=== PATIENT | female | born 1985 | race Caucasian/White ===

== ENCOUNTER 2016-11-01 17:25 | Emergency (ER) ==
[2016-11-01 17:25] VITALS: BMI 24.9
[2016-11-01 17:32] VITALS: BP 138/87; TEMP 96.7
--- NOTE | 2016-11-01 18:02 | ED.PDOC ---
General ED Provider: Dr. VIRAL LARRY-ER Chief Complaint: Wrist Pain/Injury Stated Complaint: my wrist hurts--it hurts to move my thumb Time Seen by Physician: 17:30 Mode of Arrival: Walk-In Information Source: Patient, Family Exam Limitations: No limitations Primary Care Provider: ZORAN STEELE Nursing and Triage Documentation Reviewed and Agree: Yes Musculoskeletal Complaint Exam - Hand/Wrist Complaint/Exam Location of Pain: Reports: Left, Digit #1 Mechanism of Injury: Reports: No known trauma Onset/Duration: 24hrs Symptoms Are: Still present Onset of Pain: Reports: Immediate Initial Severity: Mild Current Severity: Mild Location: Reports: Discrete (base of the left thumb) Character: Reports: Dull, Aching Aggravating: Reports: Movement Associated Signs and Symptoms: Reports: Swelling. Denies: Redness, Bruising, Fever, Weakness, Numbness, Tingling Dominant Hand: Right Hand/Wrist Findings: Present: Swelling Tenderness: Present: Snuff box, Metacarpal Compartment Syndrome Risk Factors: Present: Pain Differential Diagnoses: Tenosynovitis Review of Systems - Review Of Systems Constitutional: Reports: No symptoms Eyes: Reports: No symptoms Ears, Nose, Mouth, Throat: Reports: No symptoms Respiratory: Reports: No symptoms Cardiac: Reports: No symptoms GI: Reports: No symptoms : Reports: No symptoms Musculoskeletal: Reports: Muscle pain Skin: Reports: No symptoms Neurological: Reports: No symptoms Endocrine: Reports: No symptoms Hematologic/Lymphatic: Reports: No symptoms All Other Systems: Reviewed and Negative Past Medical History - Past Medical History Previously Healthy: No Endocrine: Reports: DM 1 Cardiovascular: Reports: None Respiratory: Reports: None Hematological: Reports: None Gastrointestinal: Reports: None Genitourinary: Reports: None Neuro/Psych: Reports: Migraine, Depression Musculoskeletal: Reports: None Cancer: Reports: None Last Menstrual Period: 10/15/2016 Other Pertinent Past Medical History: LOW VIT DLEFT KNEE SURGERY, C SECTION X2, LEFT OVARY, T AND A, APPY, PE TUB - Surgical History General Surgical History: Reports: Tubal ligation, (LT OVARY REMOVED) , Appendectomy, Cholecystectomy, Tonsillectomy, Orthopedic (LEFT KNEE SURGERY), Other (EAR TUBES-ORAL SURG). Denies: Hysterectomy (LT OVARY REMOVED) - Family History Family History: Reports: None - Social History Smoking Status: Current every day smoker Hx Substance Use: No Alcohol Screening: None Lives: With family - Immunizations Tetanus Shot up to Date: Yes Physical Exam - Physical Exam Appearance: Well-appearing, No pain distress, Well-nourished Pain Distress: Mild Eyes: LEVI, EOMI, Conjunctiva clear ENT: Ears normal, Nose normal, Oropharynx normal Neck: Supple Respiratory: Airway patent, Breath sounds clear, Breath sounds equal, Respirations nonlabored Cardiovascular: RRR, Pulses normal, No rub, No murmur GI/: Soft Musculoskeletal: Limited ROM Skin: Warm, Dry, Normal color Neurological: Sensation intact, Motor intact, Reflexes intact, Cranial nerves intact, Alert, Oriented Psychiatric: Affect appropriate, Mood appropriate Interpretation - Radiology Interpretation Radiology Interpretation By: ED Physician Radiology Results: Negative Critical Care Note - Critical Care Note Total Time (mins): 0 Course - Course Orders, Labs, Meds: Orders Category Date Time Status WRIST, LEFT 3 VIEWS Stat RADS 11/01/16 17:40 Taken Vital Signs: Temp Pulse Resp BP Pulse Ox 11/01/16 17:25 96.7 F L 98 H 20 138/87 96 Departure - Departure Time of Disposition: 18:02 Disposition: HOME SELF-CARE Discharge Problem: Radial styloid tenosynovitis Instructions: Tendinitis (ED) Condition: Good Pt referred to PMD for follow-up: Yes Additional Instructions: heat alt ice--cataflam 50mg tid prn #21---f/u wtih dr steele Allergies/Adverse Reactions: Allergies Sulfa (Sulfonamide Antibiotics) Allergy (Intermediate, Verified 11/01/16 17:34) Hives latex Adverse Reaction (Intermediate, Verified 11/01/16 17:34) Rash Home Medications: Ambulatory Orders Subcutaneous Insulin Pump [Insulin Pump] 1 each MC DIRECTED 06/27/13 Norgestimate-Ethinyl Estradiol [Mononessa 28 Tablet] 1 each PO DAILY 05/24/15 Sumatriptan Succinate [Imitrex] 100 mg PO BID PRN 01/12/16 Tizanidine HCl [Zanaflex] 4 mg PO BID 01/12/16 Buspirone HCl 10 mg PO TID 08/07/16 Hydrocodone Bit/Acetaminophen [Roosevelt 7.5-325] 1 tab PO BID PRN 08/07/16 Citalopram Hydrobromide [Celexa] 10 mg PO BEDTIME #30 08/27/16 Clonazepam [Klonopin] 0.5 mg PO TID #90 08/27/16 Dextroamphetamine/Amphetamine [Adderall 10 mg Tablet] 10 mg PO DAILY LAB Amlodipine Besylate [Norvasc] 2.5 mg PO DAILY 10/16/16 Disposition Discussed With: Patient, Family
--- NOTE | 2016-11-02 06:17 | DI ---
EXAM: Left wrist three-view HISTORY: Pain COMPARISON: None FINDINGS: The bones are normal. The joints are normal. No focal soft tissue abnormality. IMPERSSION: Normal examination.
== END 2016-11-01 18:13 | disposition home or self-care (01) ==
LOC: ED 17:25
DX: M65.4 Radial styloid tenosynovitis [de Quervain] (principal); F17.210 Nicotine dependence, cigarettes, uncomplicated
CPT/HCPCS: 99283

== ENCOUNTER 2016-11-19 19:13 | Emergency (ER) ==
[2016-11-19 19:21] VITALS: BP 114/78; TEMP 98.1; BMI 24.0
[2016-11-19] MEDS ORDERED: DEMEROL 25 MG/ML SYRINGE IM STA (19:31)
[2016-11-19] MEDS ORDERED: ZOFRAN 4 MG/2 ML IM STA (19:31)
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
[2016-11-19 19:47] LABS: URINE PREGNANCY INTERNAL QC INTERNAL QC VALID
--- NOTE | 2016-11-19 20:28 | CT ---
EXAM: CT chest without contrast HISTORY: Left rib pain COMPARISON: CT chest 04/12/2016 TECHNIQUE: Serial axial images of the chest were obtained from the lung apices to the upper abdomen without contrast. These were viewed in multiple planes. 3-D reconstructions of the ribs were provi ded. FINDINGS: The thyroid is normal. The visualized vessels are unremarkable without aneurysm or steno sis. The heart is normal in size without pericardial effusion. There is a pretracheal node measuri ng 1 cm in diameter on image 15. There is no pneumothorax or pleural effusion. There is no consolidation or mass. There is a lingul ar pulmonary nodule measuring 1.1 x 0.7 cm this is unchanged from prior. No new consolidation or ma ss is present. The airways are patent. There are healing right sixth and seventh rib fractures. No acute displaced rib fracture is identif ied. The thoracic spine is unremarkable. The soft tissues in the upper abdomen demonstrate bilater al nephrolithiasis and prior cholecystectomy. IMPRESSION: 1. The healing right sixth and seventh rib fractures. 2. Unchanged lingular pulmonary nodule. Follow-up CT and 3-6 months is recommended. 3. Nonobstructing nephrolithiasis.
== END 2016-11-19 20:51 | disposition home or self-care (01) ==
LOC: ED 19:13
DX: S20.212A Contusion of left front wall of thorax, initial encounter (principal); W51.XXXA Accidental striking against or bumped into by another person, initial encounter; F17.210 Nicotine dependence, cigarettes, uncomplicated
CPT/HCPCS: 81025; 96372; 99283

== ENCOUNTER 2016-12-22 16:55 | Emergency (ER) ==
[2016-12-22 16:55] VITALS: BMI 24.0
[2016-12-22 17:01] VITALS: BP 121/84; TEMP 98.6
--- NOTE | 2016-12-22 17:21 | ED.PDOC ---
General ED Provider: Dr. SHREYAS SAMANIEGO JR Chief Complaint: Wrist Pain/Injury Stated Complaint: Fell over baby gate left wrist pain, moves fingers.pain with lifting with left hand.[End]98.6 122 20 93 121/84 06/10 Time Seen by Physician: 17:20 Mode of Arrival: Walk-In Information Source: Patient Exam Limitations: No limitations Primary Care Provider: ZORAN PLASCENCIA Nursing and Triage Documentation Reviewed and Agree: No Review of Systems - Review Of Systems Constitutional: Reports: No symptoms Eyes: Reports: No symptoms Ears, Nose, Mouth, Throat: Reports: No symptoms Respiratory: Reports: No symptoms Cardiac: Reports: No symptoms GI: Reports: No symptoms : Reports: No symptoms Musculoskeletal: Reports: Joint pain (WRIST PAIN AND TENDERNESS DIFFUSE POSSIBLY POINT TENDER NESS OVER 1ST 5TH MCS) Skin: Reports: No symptoms Neurological: Reports: No symptoms Endocrine: Reports: No symptoms Hematologic/Lymphatic: Reports: No symptoms All Other Systems: Other Past Medical History - Past Medical History Previously Healthy: No Endocrine: Reports: DM 1 Cardiovascular: Reports: None Respiratory: Reports: None Hematological: Reports: None Gastrointestinal: Reports: None Genitourinary: Reports: None Neuro/Psych: Reports: Migraine, Anxiety, Depression Musculoskeletal: Reports: None Cancer: Reports: None Last Menstrual Period: 3 weeks Other Pertinent Past Medical History: LOW VIT D - Surgical History General Surgical History: Reports: Tubal ligation, (LT OVARY REMOVED) , Appendectomy, Cholecystectomy, Tonsillectomy, Adenoidectomy, Orthopedic (LEFT KNEE SURGERY), Other (EAR TUBES-ORAL SURG-LEFT BREAST TUMOR REMOVED). Denies: Hysterectomy (LT OVARY REMOVED) - Family History Family History: Reports: None - Social History Smoking Status: Current every day smoker, Heavy tobacco smoker Hx Substance Use: No Alcohol Screening: None Physical Exam - Physical Exam Appearance: Well-appearing, Thin Pain Distress: Moderate Neck: Supple Respiratory: Airway patent Musculoskeletal: Normal strength, ROM intact, No edema, No calf tenderness ( TENDER LEFT WRIST NOTED) Skin: Warm, Dry, Normal color Neurological: Sensation intact, Motor intact, Reflexes intact, Cranial nerves intact, Alert, Oriented Psychiatric: Affect appropriate, Mood appropriate Critical Care Note - Critical Care Note Total Time (mins): 0 Course - Course Orders, Labs, Meds: Orders Category Date Time Status Splint [ED SPLINT APPLICATION] .ONCE EMERGENCY 12/22/16 18:00 Ordered WRIST, LEFT 3 VIEWS Stat RADS 12/22/16 17:20 Ordered Vital Signs: Temp Pulse Resp BP Pulse Ox 12/22/16 16:56 98.6 F 122 H 20 121/84 93 L Departure - Departure Time of Disposition: 18:08 Disposition: HOME SELF-CARE Discharge Problem: Injury of wrist Left wrist sprain Qualifiers: Encounter type: initial encounter Qualifier Code: (S63.502A) Unspecified sprain of left wrist, initial encounter Instructions: Wrist Sprain (ED) Condition: Good Pt referred to PMD for follow-up: Yes Additional Instructions: ice 20 minutes three times a day rest wrist for three days Naprosyn or ibuprofen for pain elizabeth for comfort brace until x-rays read may call PMD after noon tomorrow for xray reading Prescriptions: Naproxen [Naprosyn] 500 mg PO Q12HR PRN #30 tablet PRN Reason: PAIN Allergies/Adverse Reactions: Allergies Sulfa (Sulfonamide Antibiotics) Allergy (Intermediate, Verified 12/22/16 17:02) Hives latex Adverse Reaction (Intermediate, Verified 12/22/16 17:02) Rash Home Medications: Ambulatory Orders Subcutaneous Insulin Pump [Insulin Pump] 1 each MC DIRECTED 06/27/13 Norgestimate-Ethinyl Estradiol [Mononessa 28 Tablet] 1 each PO DAILY 05/24/15 Sumatriptan Succinate [Imitrex] 100 mg PO BID PRN 01/12/16 Tizanidine HCl [Zanaflex] 4 mg PO BID 01/12/16 Buspirone HCl 10 mg PO TID 08/07/16 Citalopram Hydrobromide [Celexa] 10 mg PO BEDTIME #30 08/27/16 Clonazepam [Klonopin] 0.5 mg PO QID #120 08/27/16 Dextroamphetamine/Amphetamine [Adderall 10 mg Tablet] 10 mg PO DAILY LAB Amlodipine Besylate [Norvasc] 2.5 mg PO DAILY 10/16/16 Naproxen [Naprosyn] 500 mg PO Q12HR PRN #30 tablet 12/22/16
--- NOTE | 2016-12-23 07:13 | DI ---
EXAM: Radiographs, left wrist HISTORY: Initial presentation for left wrist point tenderness following a fall on outstretched hand . COMPARISON: 11/01/2016. TECHNIQUE: Three views. FINDINGS: Bone mineralization is normal. There is no fracture or dislocation. The joint spaces ar e maintained. No focal soft tissue abnormality is seen. Since the prior study, there has been no si gnificant interval change. IMPRESSION: No fracture or dislocation.
== END 2016-12-22 18:21 | disposition home or self-care (01) ==
LOC: ED 16:55
DX: S63.502A Unspecified sprain of left wrist, initial encounter (principal); W01.0XXA Fall on same level from slipping, tripping and stumbling without subsequent striking against object, initial encounter; F17.210 Nicotine dependence, cigarettes, uncomplicated
CPT/HCPCS: 99283

== ENCOUNTER 2017-01-02 08:40 | Inpatient (IN) ==
[2017-01-02] MEDS ORDERED: SODIUM CHLORIDE 1,000 ML IV STA (08:48)
[2017-01-02] MEDS ORDERED: DILAUDID 1 MG/ML SYRINGE IVP STA (08:49)
[2017-01-02] MEDS ORDERED: PHENERGAN 25 MG/ML VIAL 25 MG in SODIUM CHLORIDE 50 ML IV STA (08:49)
[2017-01-02 09:02] LABS: BASOPHILS # (AUTO) 0.1 K/uL (0-0.2); BASOPHILS % (AUTO) 0.4 % (0.0-3.0); EOSINOPHILS # (AUTO) 0.1 K/ul (0.0-0.7); EOSINOPHILS % (AUTO) 0.4 % (0.0-7.0); HEMATOCRIT 42.8 % (37.0-47.0); HEMOGLOBIN 13.7 g/dl (12.0-16.0); IMMATURE GRANULOCYTE % (AUTO) 0.7 % (0.0-5.0); LYMPHOCYTES # (AUTO) 1.5 K/uL (0.60-3.4); LYMPHOCYTES % (AUTO) 8.4 (10.0-50.0); MEAN CORPUSCULAR HEMOGLOBIN 29.6 pg (27.0-31.0); MEAN CORPUSCULAR VOLUME 92.4 fl (81.0-99.0); MONOCYTES # (AUTO) 0.7 K/uL (0.4-2.0); MONOCYTES % (AUTO) 3.6 (0-10); NEUTROPHILS # (AUTO) 15.9 K/ul (2.0-6.9); NEUTROPHILS % (AUTO) 86.5; PLATELET COUNT 408 10^3/uL (140-440); RED BLOOD COUNT 4.63 10^6/ul (4.20-5.40); WHITE BLOOD COUNT 18.38 K/ul (4.6-10.2)
[2017-01-02] MEDS ORDERED: PHENERGAN 25 MG/ML VIAL ONE (09:18)
[2017-01-02] MEDS ORDERED: PHENERGAN 25 MG/ML VIAL IM STA (09:19)
[2017-01-02 09:21] LABS: SERUM PREGNANCY INTERNAL QC INTERNAL QC VALID
[2017-01-02 09:25] LABS: ALBUMIN 3.7 g/dL (3.4-5.0); ALBUMIN/GLOBULIN RATIO 1.06; ANION GAP 27.4; BILIRUBIN,TOTAL 0.78 mg/dL (0.00-1.20); BUN/CREATININE RATIO 12.94; CALCIUM 9.2 mg/dL (8.2-10.2); CREATININE 0.85 mg/dL (0.60-1.30); POTASSIUM 4.4 mmol/L (3.5-5.10); TOTAL PROTEIN 7.2 g/dL (6.4-8.2)
[2017-01-02 09:45] LABS: ABG BASE EXCESS -16 (-2.0-2.0); ABG HCO3 11.4 (22.0-26.0); ABG PCO2 26.4 mmHg (35-45); ABG PH 7.241 (7.35-7.45); ABG TCO2 12 (22.0-28.0)
[2017-01-02] MEDS ORDERED: HUMULIN R 100 UNIT in SODIUM CHLORIDE 100 ML IV SCH ×3 (09:45→10:30)
[2017-01-02 10:15] LABS: ERYTHROCYTE SEDIMENTATION RATE 8 mm/hr (0-20); ESR INTERNAL QC INTERNAL QC VALID
--- NOTE | 2017-01-02 10:20 | CT ---
EXAM: CT abdomen pelvis without contra HISTORY: Upper abdominal pain COMPARISON: 03/17/2016 TECHNIQUE: CT abdomen pelvis performed without intravenous contrast. Coronal and sagittal reformat juana images obtained. FINDINGS: There is a stable 1 cm nodule in the lingula. No free air. No acute abnormalities of th e bones. Heart normal in size. Evaluation organ parenchyma limited without contrast. The liver ap pears normal. Patient status post cholecystectomy. Pancreas appears normal. Spleen appears normal . Adrenals appear normal. Aorta normal in caliber. Uterus unremarkable. Tampon noted. Stomach a ppears normal. No dilated loops small bowel. Suspect prior appendectomy. Colon unremarkable. No lymphadenopathy. There are multiple bilateral nonobstructing renal calculi measuring up to approxim ately 3 mm. No hydronephrosis. No calculi visualized in the normal course of the ureters. Bladder unremarkable. There is small free fluid in the pelvis/cul-de-sac. IMPRESSION: 1. Bilateral nephrolithiasis. No hydronephrosis. 2. Small free fluid in the pelvis/cul-de-sac, nonspecific and similar to the prior study. 3. Stable 1 cm nodule in the lingula.
--- NOTE | 2017-01-02 10:27 | ED.PDOC ---
General ED Provider: Dr. VIRAL LARRY-ER Chief Complaint: Abdominal Pain Stated Complaint: im hurting and throwing up Time Seen by Physician: 08:45 Mode of Arrival: Walk-In Information Source: Patient, Family Exam Limitations: No limitations Primary Care Provider: ZORAN STEELE Nursing and Triage Documentation Reviewed and Agree: Yes GI Complaint Exam - Abdominal Pain Complaint/Exam Onset: Gradual Duration: several hours Symptoms Are: Still present Timing: Constant Initial Severity: Moderate Current Severity: Moderate Location of Pain: Diffuse Radiates To: Reports: Back Character: Reports: Dull, Aching Aggravating: Reports: Eating Alleviating: Reports: Vomiting Associated Signs and Symptoms: Reports: Back pain, Decreased urine output, Nausea, Vomiting. Denies: Diaphoresis, Cough, Chest pain, Dizziness, Constipation, Blood in stool, Dysuria, Urinary frequency, Decreased appetite, Vaginal bleeding, Vaginal discharge, Diarrhea, Sore throat, Decreased activity Patient Rh Status: Unknown Abdominal Findings: Present: None Differential Diagnoses: Bowel Obstruction, Constipation, Gastroenteritis, Pancreatitis, Other Review of Systems - Review Of Systems Constitutional: Reports: No symptoms Eyes: Reports: No symptoms Ears, Nose, Mouth, Throat: Reports: No symptoms Respiratory: Reports: No symptoms Cardiac: Reports: No symptoms GI: Reports: Abdominal pain, Nausea, Vomiting : Reports: No symptoms Musculoskeletal: Reports: No symptoms Skin: Reports: No symptoms Neurological: Reports: No symptoms Endocrine: Reports: No symptoms Hematologic/Lymphatic: Reports: No symptoms All Other Systems: Reviewed and Negative Past Medical History - Past Medical History Previously Healthy: No Endocrine: Reports: DM 1 Cardiovascular: Reports: None Respiratory: Reports: None Hematological: Reports: None Gastrointestinal: Reports: None Genitourinary: Reports: None Neuro/Psych: Reports: Migraine, Anxiety, Depression Musculoskeletal: Reports: None Cancer: Reports: None Last Menstrual Period: CURRENT Other Pertinent Past Medical History: LOW VIT D - Surgical History General Surgical History: Reports: Tubal ligation, (LT OVARY REMOVED) , Appendectomy, Cholecystectomy, Tonsillectomy, Adenoidectomy, Orthopedic (LEFT KNEE SURGERY), Other (EAR TUBES-ORAL SURG-LEFT BREAST TUMOR REMOVED). Denies: Hysterectomy (LT OVARY REMOVED) - Family History Family History: Reports: None - Social History Smoking Status: Current every day smoker, Heavy tobacco smoker Hx Substance Use: No Alcohol Screening: None Lives: With family - Immunizations Tetanus Shot up to Date: Yes Physical Exam - Physical Exam Appearance: Well-appearing, No pain distress, Well-nourished Ill-appearing: Mild Pain Distress: Mild Eyes: LEVI, EOMI, Conjunctiva clear ENT: Ears normal, Nose normal, Oropharynx normal Neck: Supple Respiratory: Airway patent Cardiovascular: RRR, Pulses normal, No rub, No murmur GI/: Soft, Nontender, No masses, Bowel sounds normal, No Organomegaly Musculoskeletal: Normal strength, ROM intact, No edema, No calf tenderness Skin: Warm, Dry, Normal color Neurological: Sensation intact, Motor intact, Reflexes intact, Cranial nerves intact, Alert, Oriented Psychiatric: Affect appropriate, Mood appropriate Interpretation - Radiology Interpretation Radiology Interpretation By: Radiologist Radiology Results: Negative Exam Interpreted: CT Scan Re-Evaluation - Re-Evaluation Time of Re-Evaluation: 10:27 Status: Improved Vital Signs Stable: Yes Pain Level: 0 Appearance: NAD Lungs: Clear Skin: Warm and Dry Neuro: Alert and Oriented X3 CV: RRR Physician Notification - Case Discussed Physician Notified: dr [email or web address] Time of Notification: 10:20 Critical Care Note - Critical Care Note Total Time (mins): 20 Course - Course Hematology/Chemistry: 01/02/17 08:55 01/02/17 08:55 Orders, Labs, Meds: Lab Review 01/02/17 01/02/17 08:55 09:28 WBC 18.38 H RBC 4.63 Hgb 13.7 Hct 42.8 MCV 92.4 MCH 29.6 MCHC 32.0 RDW Coeff of Giovanni 12.7 Plt Count 408 Immature Gran % (Auto) 0.7 Neut % (Auto) 86.5 Lymph % (Auto) 8.4 L Reeves % (Auto) 3.6 Eos % (Auto) 0.4 Baso % (Auto) 0.4 Immature Gran # (Auto) 0.1 Neut # 15.9 H Lymph # 1.5 Reeves # 0.7 Eos # 0.1 Baso # 0.1 ESR 8 Puncture Site Rbrach O2 Saturation 97.0 ABG pH 7.241 L* ABG pCO2 26.4 L ABG pO2 98.0 ABG HCO3 11.4 L ABG Total CO2 12 L ABG Base Excess -16 L FiO2 % 21.0 Sodium 135 L Potassium 4.4 Chloride 103 Carbon Dioxide 9 L* Anion Gap 27.4 BUN 11 Creatinine 0.85 Estimated GFR (MDRD) 79.00 BUN/Creatinine Ratio 12.94 Glucose 502 H* Calcium 9.2 Total Bilirubin 0.78 AST 17 ALT 11 L Alkaline Phosphatase 89 Total Protein 7.2 Albumin 3.7 Globulin 3.5 Albumin/Globulin Ratio 1.06 Amylase 21 L Lipase 9 Serum , Qual Negative Orders Category Date Time Status ABG DRAW REQUEST Stat CARDIO 01/02/17 09:28 Ordered BLOOD GLUCOSE MONITORING Q1HR CARE 01/02/17 09:44 Active ED IV/MEDIPORT/POWERPORT .ONCE EMERGENCY 01/02/17 08:48 Active AMYLASE Stat LAB 01/02/17 08:55 Completed ARTERIAL BLOOD GAS [ABG] Stat LAB 01/02/17 09:28 Completed CBC W/ AUTO DIFF Stat LAB 01/02/17 08:55 Completed COMPREHENSIVE METABOLIC PANEL Stat LAB 01/02/17 08:55 Completed ESR Stat LAB 01/02/17 08:55 Completed LIPASE Stat LAB 01/02/17 08:55 Completed MOLECULAR GROUP A STREP Stat LAB 01/02/17 08:55 Results RAPID STREP SCREEN [STREP SCREEN] Stat LAB 01/02/17 08:55 Results SERUM Stat LAB 01/02/17 08:55 Completed URINALYSIS C & S IF INDICATED Stat LAB 01/02/17 08:47 Uncollected 0.9 % Sodium Chloride [Saline Flush] MEDS 01/02/17 08:48 Active 1 syr IVF PRN PRN 0.9 % Sodium Chloride [Sodium Chloride] 100 ml MEDS 01/02/17 10:00 Active Insulin Regular, Human [Humulin R] 100 unit IV 3 unit/hr 0.9 % Sodium Chloride [Sodium Chloride] 100 ml MEDS 01/02/17 09:45 Discontinued Insulin Regular, Human [Humulin R] 100 unit IV 5 unit/hr Ceftriaxone Sodium [Rocephin] 1 gm MEDS 01/02/17 10:17 Active 0.9 % Sodium Chloride [Sodium Chloride] 100 ml IV ONCE Hydromorphone HCl [Dilaudid 1 mg/ml Syringe] MEDS 01/02/17 08:49 Discontinued 1 mg IVP ONCE STA Promethazine HCl [Phenergan 25 mg/ml Vial] MEDS 01/02/17 09:18 Discontinued 25 mg .ROUTE .STK-MED ONE Promethazine HCl [Phenergan 25 mg/ml Vial] MEDS 01/02/17 09:19 Discontinued 25 mg IM ONCE STA Sodium Chloride 0.9% [Sodium Chloride] 1,000 ml MEDS 01/02/17 08:[address] ABDOMEN/PELVIS WO CONTRAST Stat RADS 01/02/17 08:49 Completed Medications Generic Name Dose Route Start Last Admin Trade Name Freq PRN Reason Stop Dose Admin Insulin Human Regular 100 unit 100 mls @ 3 mls/hr 01/02/17 10:00 / Sodium Chloride IV .Q24H JOCELYNE Protocol 3 UNIT/HR Ceftriaxone Sodium 1 gm/ 100 mls @ 100 mls/hr 01/02/17 10:17 Sodium Chloride IV 01/02/17 11:16 ONCE STA Sodium Chloride 1 syr 01/02/17 08:48 01/02/17 09:27 Saline Flush IVF 1 syr PRN PRN Administration To flush IV Discontinued Medications Generic Name Dose Route Start Last Admin Trade Name Freq PRN Reason Stop Dose Admin Hydromorphone HCl 1 mg 01/02/17 08:49 01/02/17 09:22 Dilaudid 1 Mg/Ml Syringe IVP 01/02/17 08:50 1 mg ONCE STA Administration Sodium Chloride 1,000 mls @ 1,000 mls/hr 01/02/17 08:48 01/02/17 09:26 Sodium Chloride IV 01/02/17 09:47 1,000 mls/hr BOLUS STA Administration Insulin Human Regular 100 unit 100 mls @ 5 mls/hr 01/02/17 09:45 / Sodium Chloride IV .Q20H JOCELYNE Protocol 5 UNIT/HR Promethazine HCl 25 mg 01/02/17 09:19 01/02/17 09:25 Phenergan 25 Mg/Ml Vial IM 01/02/17 09:20 25 mg ONCE STA Administration Vital Signs: Temp Pulse Resp BP Pulse Ox 01/02/17 08:40 96.9 F L 111 H 24 144/65 H 97 Departure - Departure Time of Disposition: 10:28 Disposition: ADMITTED INPATIENT Discharge Problem: Diabetic ketoacidosis Qualifiers: Diabetes mellitus type: type 1 Diabetes mellitus complication detail: without coma Qualifier Code: (E10.10) Type 1 diabetes mellitus with ketoacidosis without coma Instructions: Type 2 Diabetes in Adults (ED) Condition: Stable Pt referred to PMD for follow-up: Yes Allergies/Adverse Reactions: Allergies Sulfa (Sulfonamide Antibiotics) Allergy (Intermediate, Verified 12/22/16 17:02) Hives latex Adverse Reaction (Intermediate, Verified 12/22/16 17:02) Rash Home Medications: Ambulatory Orders Subcutaneous Insulin Pump [Insulin Pump] 1 each MC DIRECTED 06/27/13 Norgestimate-Ethinyl Estradiol [Mononessa 28 Tablet] 1 each PO DAILY 05/24/15 Sumatriptan Succinate [Imitrex] 100 mg PO BID PRN 01/12/16 Tizanidine HCl [Zanaflex] 4 mg PO BID 01/12/16 Buspirone HCl 10 mg PO TID 08/07/16 Citalopram Hydrobromide [Celexa] 10 mg PO BEDTIME #30 08/27/16 Clonazepam [Klonopin] 0.5 mg PO QID #120 08/27/16 Dextroamphetamine/Amphetamine [Adderall 10 mg Tablet] 10 mg PO DAILY LAB Amlodipine Besylate [Norvasc] 2.5 mg PO DAILY 10/16/16 Naproxen [Naprosyn] 500 mg PO Q12HR PRN #30 tablet 12/22/16 Disposition Discussed With: Patient
[2017-01-02] MEDS ORDERED: SODIUM CHLORIDE 1,000 ML IV SCH (10:30)
[2017-01-02] MEDS ORDERED: NON-FORMULARY MEDICATION (Sumatriptan Succinate [Imitrex] 100 MG) PO PRN (10:31)
[2017-01-02] MEDS ORDERED: ZOFRAN 4 MG/2 ML IVP PRN (10:42)
[2017-01-02] MEDS ORDERED: SUBCUTANEOUS INSULIN PUMP MC SCH (10:45)
[2017-01-02] MEDS ORDERED: IMITREX PO PRN (10:49)
[2017-01-02 11:07] LABS: BILIRUBIN,URINE Negative (NEGATIVE); KETONES,URINE 4+ (NEGATIVE); LEUKOCYTE ESTERASE ,URINE Negative (NEGATIVE); NITRITE,URINE Negative (NEGATIVE); PH,URINE 5.5 (5-9); PROTEIN,URINE Negative (NEGATIVE); URINE, BLOOD 2+ (NEGATIVE)
[2017-01-02 11:25] LABS: ADD URINE MICROSCOPIC YES
[2017-01-02 12:17] VITALS: BMI 24.2
[2017-01-02] MEDS ORDERED: ROCEPHIN ONE (12:38)
[2017-01-02] MEDS: ROCEPHIN 1 GM in SODIUM CHLORIDE 100 ML IV STA ×2 (12:43→12:44)
[2017-01-02] MEDS: SODIUM CHLORIDE 1,000 ML IV SCH ×2 (12:43→20:45)
[2017-01-02] MEDS ORDERED: SODIUM CHLORIDE 100 ML IV ONE (12:44)
[2017-01-02] MEDS: MORPHINE 2 MG/ML SYRINGE IVP PRN ×3 (12:56→20:06)
[2017-01-02 13:33] LABS: ANION GAP 20.2; BUN/CREATININE RATIO 16.88; CALCIUM 8.2 mg/dL (8.2-10.2); CREATININE 0.77 mg/dL (0.60-1.30); POTASSIUM 4.2 mmol/L (3.5-5.10)
[2017-01-02] MEDS: KLONOPIN PO SCH ×3 (13:44→20:03)
[2017-01-02 14:38] LABS: ABG PH 7.274 (7.35-7.45)
[2017-01-02 14:39] LABS: ABG BASE EXCESS -14 (-2.0-2.0); ABG HCO3 12.8 (22.0-26.0); ABG PCO2 27.7 mmHg (35-45); ABG TCO2 14 (22.0-28.0)
[2017-01-02] MEDS: BUSPAR PO SCH ×2 (15:01→20:03)
[2017-01-02 17:22] LABS: ANION GAP 16.9; BUN/CREATININE RATIO 13.33; CALCIUM 8.4 mg/dL (8.2-10.2); CREATININE 0.75 mg/dL (0.60-1.30); POTASSIUM 3.9 mmol/L (3.5-5.10)
[2017-01-02] MEDS: CELEXA PO SCH (20:02)
[2017-01-02] MEDS: ZANAFLEX PO SCH (20:03)
[2017-01-02 21:08] LABS: ANION GAP 14.4; BUN/CREATININE RATIO 10.81; CALCIUM 8.1 mg/dL (8.2-10.2); CREATININE 0.74 mg/dL (0.60-1.30); POTASSIUM 3.4 mmol/L (3.5-5.10)
[2017-01-03] MEDS: MORPHINE 2 MG/ML SYRINGE IVP PRN ×6 (00:05→20:40)
[2017-01-03] MEDS: DEXTROSE 5%-1/2NS IV SOLUTION 1,000 ML IV SCH ×3 (01:02→16:58)
[2017-01-03 01:33] LABS: BUN/CREATININE RATIO 10.93; CALCIUM 8.2 mg/dL (8.2-10.2); CREATININE 0.64 mg/dL (0.60-1.30)
[2017-01-03] MEDS ORDERED: DEXTROSE 50%-WATER ABBOJECT IVP STA (04:16)
[2017-01-03] MEDS: HUMULIN R SUBCUT PRN ×6 (05:04→11:03)
[2017-01-03 05:06] LABS: BASOPHILS # (AUTO) 0.1 K/uL (0-0.2); BASOPHILS % (AUTO) 0.8 % (0.0-3.0); EOSINOPHILS # (AUTO) 0.1 K/ul (0.0-0.7); EOSINOPHILS % (AUTO) 1.7 % (0.0-7.0); HEMATOCRIT 38.6 % (37.0-47.0); HEMOGLOBIN 12.8 g/dl (12.0-16.0); IMMATURE GRANULOCYTE % (AUTO) 0.3 % (0.0-5.0); LYMPHOCYTES # (AUTO) 1.8 K/uL (0.60-3.4); LYMPHOCYTES % (AUTO) 28.6 (10.0-50.0); MEAN CORPUSCULAR HEMOGLOBIN 29.9 pg (27.0-31.0); MEAN CORPUSCULAR HGB CONC 33.2 (31.8-35.4); MEAN CORPUSCULAR VOLUME 90.2 fl (81.0-99.0); MONOCYTES # (AUTO) 0.6 K/uL (0.4-2.0); MONOCYTES % (AUTO) 9.6 (0-10); NEUTROPHILS # (AUTO) 3.8 K/ul (2.0-6.9); PLATELET COUNT 348 10^3/uL (140-440); RED BLOOD COUNT 4.28 10^6/ul (4.20-5.40); WHITE BLOOD COUNT 6.43 K/ul (4.6-10.2)
[2017-01-03] MEDS: AMPHETAMINE PO SCH (05:07)
[2017-01-03] MEDS: DEXTROAMPHETAMINE PO SCH (05:07)
[2017-01-03 05:34] LABS: ANION GAP 12.2; BUN/CREATININE RATIO 9.23; CALCIUM 8.4 mg/dL (8.2-10.2); CREATININE 0.65 mg/dL (0.60-1.30); POTASSIUM 3.2 mmol/L (3.5-5.10)
[2017-01-03] MEDS: NORVASC PO SCH (08:39)
[2017-01-03] MEDS: ZANAFLEX PO SCH ×2 (08:39→20:40)
[2017-01-03] MEDS: KLONOPIN PO SCH ×4 (08:39→20:40)
[2017-01-03] MEDS: LOVENOX SUBCUT SCH (08:39)
[2017-01-03] MEDS: BUSPAR PO SCH ×3 (08:39→20:39)
[2017-01-03] MEDS: NORGESTIMATE ETHINYL ESTRADIOL PO SCH (08:44)
[2017-01-03] MEDS ORDERED: NON-FORMULARY MEDICATION (Amlodipine Besylate [Norvasc] 2.5 MG) PO SCH ×22 (09:00)
[2017-01-03 10:00] LABS: ANION GAP 11.1; BUN/CREATININE RATIO 8.47; CALCIUM 8.1 mg/dL (8.2-10.2); CREATININE 0.59 mg/dL (0.60-1.30); POTASSIUM 3.1 mmol/L (3.5-5.10)
[2017-01-03] MEDS: K-DUR PO SCH ×3 (13:06→20:39)
[2017-01-03] MEDS ORDERED: HUMULIN R IVP PRN (13:58)
[2017-01-03] MEDS ORDERED: SUBCUTANEOUS INSULIN PUMP SQ SCH (14:20)
[2017-01-03 18:34] LABS: ANION GAP 12.5; BUN/CREATININE RATIO 6.25; CALCIUM 8.5 mg/dL (8.2-10.2); CREATININE 0.64 mg/dL (0.60-1.30); POTASSIUM 3.5 mmol/L (3.5-5.10)
[2017-01-03] MEDS: CELEXA PO SCH (20:40)
[2017-01-04] MEDS: DEXTROSE 5%-1/2NS IV SOLUTION 1,000 ML IV SCH (01:11)
[2017-01-04] MEDS: MORPHINE 2 MG/ML SYRINGE IVP PRN ×2 (02:20→06:41)
[2017-01-04] MEDS: DEXTROAMPHETAMINE PO SCH (05:00)
[2017-01-04] MEDS: AMPHETAMINE PO SCH (05:00)
[2017-01-04 05:17] LABS: BASOPHILS % (AUTO) 0.5 % (0.0-3.0); EOSINOPHILS # (AUTO) 0.2 K/ul (0.0-0.7); EOSINOPHILS % (AUTO) 1.9 % (0.0-7.0); HEMATOCRIT 35.8 % (37.0-47.0); HEMOGLOBIN 11.8 g/dl (12.0-16.0); IMMATURE GRANULOCYTE % (AUTO) 0.4 % (0.0-5.0); LYMPHOCYTES # (AUTO) 1.9 K/uL (0.60-3.4); LYMPHOCYTES % (AUTO) 23.4 (10.0-50.0); MEAN CORPUSCULAR HEMOGLOBIN 29.6 pg (27.0-31.0); MEAN CORPUSCULAR VOLUME 89.9 fl (81.0-99.0); MONOCYTES # (AUTO) 0.6 K/uL (0.4-2.0); MONOCYTES % (AUTO) 7.1 (0-10); NEUTROPHILS # (AUTO) 5.4 K/ul (2.0-6.9); NEUTROPHILS % (AUTO) 66.7; PLATELET COUNT 341 10^3/uL (140-440); RED BLOOD COUNT 3.98 10^6/ul (4.20-5.40); WHITE BLOOD COUNT 8.08 K/ul (4.6-10.2)
[2017-01-04 05:34] LABS: ANION GAP 11.7; BUN/CREATININE RATIO 6.55; CALCIUM 8.3 mg/dL (8.2-10.2); CREATININE 0.61 mg/dL (0.60-1.30); POTASSIUM 3.7 mmol/L (3.5-5.10)
[2017-01-04] MEDS: ZANAFLEX PO SCH (08:39)
[2017-01-04] MEDS: KLONOPIN PO SCH ×2 (08:39→14:29)
[2017-01-04] MEDS: NORVASC PO SCH (08:39)
[2017-01-04] MEDS: K-DUR PO SCH ×2 (08:39→14:30)
[2017-01-04] MEDS: BUSPAR PO SCH ×2 (08:40→14:29)
[2017-01-04] MEDS: LOVENOX SUBCUT SCH (08:43)
[2017-01-04] MEDS: NORGESTIMATE ETHINYL ESTRADIOL PO SCH (09:58)
[2017-01-04 11:02] VITALS: BP 123/79; TEMP 98.9
--- NOTE | 2017-01-04 11:56 | PN ---
DATE OF SERVICE: 01/03/17 CHIEF COMPLAINT: "My sugar was out of control." BRIEF HISTORY OF PRESENT ILLNESS: Approximately the 4th admission in her lifetime with DKA; it has been a long time since the last one. She is a pump-treated, Type 1 diabetic, diagnosed with the disease, age 4. She had pump failure a few days prior to admission; even though she got a new pump she couldn't get her sugars under control and became progressively weaker with nausea without vomiting and abdominal pain. On arrival here, she was metabolic acidotic with a sugar of 500 and positive for ketones. She had several liters of fluid and IV insulin; her sugars are now in the 160s and her abdominal discomfort is requiring less narcotics for control. OBJECTIVE: V/S: Temperature 99, pulse 85, respirations 16, BP 107/61 GENERAL: Small amount of ketone smell in the room. INTEGUMENT: Eyegrounds are pink. Nonicteric sclerae. No ankle edema. HEENT: Tongue is moist without coating. NECK: No mass or thyroid. CHEST: Clear and equal breath sounds. CARDIOVASCULAR: Regular without murmur and no peripheral edema. GI: No rebound, guarding, mass and if any tenderness, very minimal in the mid epiastrium. NEUROLOGIC: Alert, oriented, binder folder operator are equal. Four quadrant movements are equal. LABS/X-RAYS: White count 6.43, hemoglobin 12. Chemistries: Potassium 3.1, BUN 5, creatinine 0.59, sugar 122, bicarb 20. ASSESSMENT: # Lethargy - metabolic and related to DKA # Abdominal pain - probably related to DKA # DKA improving # Dehydration - part of # Metabolic acidosis - part of # Hyperglycemia - part of # Type 1 diabetes - pump treated # Hypopotassemia PLAN: 1. Replace potassium; watch labs 2. Transition over to her pump insulin and watch labs 3. Medicines reviewed - same 4. Discharge planning; probable and possibly home tomorrow MTDD
--- NOTE | 2017-01-04 11:58 | HP ---
The patient is admitted today on 01/02 (date of services 01/02). SOURCE: The source of this information is prior knowledge of Chrissie and review of her office records. Her current chart as well as discussion with she and ER personal ; all considered reliable. PATIENT PROFILE: Chrissie is a 31 year old female resident of [place]; she was cooperative. CHIEF COMPLAINT: She's got DKA. BRIEF HISTORY OF PRESENT ILLNESS: Chrissie is a type 1 diabetic. She has a pump. She says that her pump failed early in the week; she has another one shipped in and was trying to get her sugar under better control. She started having first abdominal pain; also mid upper gastric with nausea without vomiting. She got weaker; she presented to the ER where she was found to have a pH 7.24, bicarb 26 and a sugar of 502. She was admitted for aggressive fluids and Lasix. She has no obvious signs of infection; denying not rhinorrhea, nasal congestion, sore throat, ear pain, open wounds or rashes, dysuria, cough or fever. Her test was negative and she is on her period now. She is denies vaginal discharge or odor. PAST HISTORY: CHILDHOOD: Complicated by diabetes ALLERGIES/INTOLERANCE: Biaxin(hives and tongue swells) Sulfa Latex CURRENT MEDICATIONS: Norvasc Amlodipine 5mg one a day Adderall 10mg twice a day Buspar 10mg PO three times a day Ultram 50mg one every 6 hours if needed for pain [place] 7.5mg one every four hour if needed for pain Desyrel 150mg at bedtime Imitrex 100mg on onset of migraine Humalog with her pump Celexa 20mg by mouth each day MonoNessa ( control) one by mouth each day Klonopin 0.5mg four times a day Zanaflex one by mouth twice as needed for back pain HOSPITALIZATIONS/SURGERIES/PROCEDURES: 2, Para 2, AB 0 Right ankle fracture and casting age [address] Young 04/29/10 Left breast biopsy benign, Dr. Surya Castro 09/27/12 PE tube 03/18/90 Lap gallbladder 06/30/96 Lap appendectomy 02/13/99 [facility]ound [facility] 06/01/08 [facility]C at [facility] 06/01/08 Wound debridement, [facility] 06/04/08 Wound debridement, [facility] 06/06/08 Diagnostic Lap and left oophorectomy, Dr. Young, [place] 05/01/11 Left breast biopsy as noted Dr. Felix [facility] 04/26/15 Medical Admissions include: Here 01/21/04 for DKA 01/20 through 01/23/04 for DKA 08/13 through 08/15 for DKA and others 02/08/09 for DKA Caodaism includes 03/04/08 for back pain with FAMILY HISTORY: Diabetes, Mother and Paternal Grandmother HABITS: Smoker; age 18 a pack per day to a half a pack per day Second handed smoke through age 18 and none now Occasional alcohol and past a little heavier after teenage years Did use various drugs for a period of time after age 18. SOCIAL HISTORY: The patient has 2 children, 05/06 08/08 and Remarried in 2010. 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 REVIEW OF SYSTEMS: GENERAL: She says that she felt OK prior to this; there has been no fever INTEGUMENT: No rash or open wounds HEENT: Occasional headaches none recent. NECK: No pain or mass CHEST: No cough or wheeze CARDIOVASCULAR: No chest pain, palpitations or ankle edema GI: No vomiting or diarrhea : No dysuria or hematuria. MUSCULOSKELETAL/NEUROLOGIC:No swollen joints. No headaches recent; No weakness of extremities. PSYCHIATRIC: Feels that she does much better on her list of medication above related to her concentration, anxiety and depression PHYSICAL EXAMINATION: VITALS: Temperature 97.7, pulse 120, blood pressure 110/61, respiratory rate 18. Height 5'8 weight 160. GENERAL: A little older then stated age but no obvious distress. Well kept. She smells of Ketones INTEGUMENT: Eyegrounds are pink, not icteric sclarea. Mucosa membrane are dry but not parched. No ankle edema. HEENT: Pupils equal, round, extraocular movements intact. Facial symmetry. NECK: No visible lymphadenopathy, thyromegaly, mass seen or felt and supple. . CHEST: Clear. CARDIOVASCULAR: S1, S2 without murmur and tachy. GI: Soft. No rebound, guarding, mass. A little tenderness in midepigastrium . MUSCULOSKELETAL/NEUROLOGIC: No swollen red joints and moves all extremities equal. Instrument Worker are are equal. PSYCHIATRIC: Pleasant and well kept. Intact short and prison memory. ASSESSMENT/PROBLEM LIST: 0. 31 year old white female 1. Allergies/ Intolerance as see above 2. Procedural history see above 3. Family history see above 4. History of milk intolerance 5. Type 1 diabetes-December 1992 6. Chronic depression 7. Chronic anxiety 8. Tobacco use 9. History of Polysubstance use 10.Multiple social situations that's currently better 11.On and off compliance issues 12.ADHD 13.History of migraines REASON FOR ADMISSION: # Diabetic ketoacidosis (pH 7.24, bicarb 11.4 and blood sugar 502) # Abdominal pain disassociated with # Hyperglycemia # Dehydration # Type 1 diabetes # Metabolic acidosis PLAN: 1. Fluid and Lasix to correct her metabolic abnormalities 2. Watch for any signs of participators to cause this particularly infection 3. Watch abdominal pain, I believe it will correct itself when her metabolic abnormality it correct. 4. Discharge planning at this point; home as expected when better. PEDRITOD
--- NOTE | 2017-01-07 13:35 | DS ---
PATIENT PROFILE: Chrissie is a 31 year old female resident of [place]; she was cooperative. CHIEF COMPLAINT: She's got DKA. BRIEF HISTORY OF PRESENT ILLNESS: Chrissie is a type 1 diabetic. She has a pump. She says that her pump failed early in the week; she has another one shipped in and was trying to get her sugar under better control. She started having first abdominal pain; also mid upper gastric with nausea without vomiting. She got weaker; she presented to the ER where she was found to have a pH 7.24, bicarb 26 and a sugar of 502. She was admitted for aggressive fluids and Lasix. She has no obvious signs of infection; denying not rhinorrhea, nasal congestion, sore throat, ear pain, open wounds or rashes, dysuria, cough or fever. Her test was negative and she is on her period now. She is denies vaginal discharge or odor. PAST HISTORY: CHILDHOOD: Complicated by diabetes ALLERGIES/INTOLERANCE: Biaxin(hives and tongue swells) Sulfa Latex CURRENT MEDICATIONS: Norvasc Amlodipine 5mg - 1/2 a day Adderall 10mg - half of one twice a day BuSpar 10mg PO three times a day Ultram 50mg one every 6 hours if needed for pain Crucible 7.5mg one every four hour if needed for pain Desyrel 150mg at bedtime Imitrex 100mg on onset of migraine Humalog with her pump Celexa 20mg - 1/2 by mouth each day MonoNessa ( control) one by mouth each day Klonopin 0.5mg four times a day Zanaflex one by mouth twice as needed for back pain HOSPITALIZATIONS/SURGERIES/PROCEDURES: 2, Para 2, AB 0 Right ankle fracture and casting age [address] Young 04/29/10 Left breast biopsy benign, Dr. Surya Castro 09/27/12 PE tube 03/18/90 Lap gallbladder 06/30/96 Lap appendectomy 02/13/99 Wound debridement, [facility] 06/01/08 D&C at [facility] 06/01/08 Wound debridement, [facility] 06/04/08 Wound debridement, [facility] 06/06[facility]08 [facility] Admissions include: Here 01/21/04 for DKA 01/20 through 01/23/04 for DKA 08/13 through 08/15 for DKA and others 02/08/09 for DKA Caodaism includes 03/04/08 for back pain with FAMILY HISTORY: Diabetes, Mother and Paternal Grandmother HABITS: Smoker; age 18 a pack per day to a half a pack per day Second handed smoke through age 18 and none now Occasional alcohol and past a little heavier after teenage years Did use various drugs for a period of time after age 18. SOCIAL HISTORY: The patient has 2 children, 05/06 08/08 and Remarried in 2010. 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 REVIEW OF SYSTEMS: GENERAL: She says that she felt OK prior to this; there has been no fever INTEGUMENT: No rash or open wounds HEENT: Occasional headaches none recent. NECK: No pain or mass CHEST: No cough or wheeze CARDIOVASCULAR: No chest pain, palpitations or ankle edema GI: No vomiting or diarrhea : No dysuria or hematuria. MUSCULOSKELETAL/NEUROLOGIC:No swollen joints. No headaches recent; No weakness of extremities. PSYCHIATRIC: Feels that she does much better on her list of medication above related to her concentration, anxiety and depression PHYSICAL EXAMINATION: VITALS: Temperature 97.7, pulse 120, blood pressure 110/61, respiratory rate 18. Height 5'8 weight 160. GENERAL: A little older then stated age but no obvious distress. Well kept. She smells of Ketones INTEGUMENT: Eyegrounds are pink, not icteric sclarea. Mucosa membrane are dry but not parched. No ankle edema. HEENT: Pupils equal, round, extraocular movements intact. Facial symmetry. NECK: No visible lymphadenopathy, thyromegaly, mass seen or felt and supple. . CHEST: Clear. CARDIOVASCULAR: S1, S2 without murmur and tachy. GI: Soft. No rebound, guarding, mass. A little tenderness in midepigastrium . MUSCULOSKELETAL/NEUROLOGIC: No swollen red joints and moves all extremities equal. Image Consultant are are equal. PSYCHIATRIC: Pleasant and well kept. Intact short and automatic equipment technician memory. ASSESSMENT/PROBLEM LIST: 0. 31 year old white female 1. Allergies/ Intolerance as see above 2. Procedural history see above 3. Family history see above 4. History of milk intolerance 5. Type 1 diabetes-December 1992 6. Chronic depression 7. Chronic anxiety 8. Tobacco use 9. History of Polysubstance use 10.Multiple social situations that's currently better 11.On and off compliance issues 12.ADHD 13.History of migraines REASON FOR ADMISSION: # Diabetic ketoacidosis (pH 7.24, bicarb 11.4 and blood sugar 502) # Abdominal pain disassociated with # Hyperglycemia # Dehydration # Type 1 diabetes # Metabolic acidosis PLAN: 1. Fluid and Lasix to correct her metabolic abnormalities 2. Watch for any signs of participators to cause this particularly infection 3. Watch abdominal pain, I believe it will correct itself when her metabolic abnormality it correct. 4. Discharge planning at this point; home as expected when better. HOSPITAL COURSE: Chrissie was treated with IV insulin and fluids; the latter aggressively. Her acidosis and ketosis that gradually resolved. She was put back on her insulin pump and was able to maintain her sugar control reasonably well. Her white count started at 18 and dropped in the 6 to 8 range; hemoglobin 13.7 with fluids , went to 11.8 and no signs of bleeding were seen. Her chemistries started with potassium 3.4; the lowest was 3.1 and is being replaced at discharge. Her bicarb started at 17 and is gradually improving. Her urinalysis showed no signs of infection. Again, CT of the abdomen showed bilateral nephrolithiasis with no hydronephrosis. She has a stable 1 cm nodule in the lingula. Taking diet and controlling her sugars, she is being discharged. DISCHARGE ASSESSMENT/PROBLEM LIST (CHANGED FROM ADMISSION): # Diabetic ketoacidosis (pH 7.24, bicarb 11.4, blood sugar 502) # Abdominal pain - associated with # Hyperglycemia # Dehydration # Type 1 diabetes # Metabolic acidosis PLAN: 1. Discharge 2. Medications at discharge: a) Norvasc 5 mg one-half a day b) BuSpar 10 mg three times a day c) Celexa 20 mg one-half a day d) Klonopin 0.5 mg q.i.d. e) Insulin pump with sliding scale f) Adderall 10 mg one-half b.i.d. g) MonoNessa control once a day h) K-Dur 20 mEq one twice a day for five days; script called into drug store i) Imitrex 100 mg b.i.d. p.r.n. j) Zanaflex 1 mg b.i.d. p.r.n. muscle spasm 3. Activity: a) Gradually increase as able b) No work until 01/06/17 c) No driving for 24 hours 4. Follow up: a) Dr. Gray in 7 to 10 days 5. Diet a) ADA/consistent carbs PROGNOSIS: Guarded. CONDITION: Stable, improved. MTDD
== END 2017-01-04 14:36 | disposition home or self-care (01) | DRG 639 ==
LOC: ED 08:40 → SCU 10:47
PROVIDERS: ADMIT Family Medicine; ATTEND Family Medicine
DX: E10.10 Type 1 diabetes mellitus with ketoacidosis without coma (principal); E10.65 Type 1 diabetes mellitus with hyperglycemia; R10.84 Generalized abdominal pain; R11.2 Nausea with vomiting, unspecified; R53.83 Other fatigue; E87.6 Hypokalemia; T85.898A Other specified complication of other internal prosthetic devices, implants and grafts, initial encounter; F17.210 Nicotine dependence, cigarettes, uncomplicated; Z96.41 Presence of insulin pump (external) (internal); Z79.899 Other long term (current) drug therapy
CPT/HCPCS: 36415; 80048; 80053; 81001; 82150; 82803; 82962; 83690; 84703; 85025; 85651; 87081; 87651; 87880; 93005; 93010; 96360; 96368; 96372; 99284

== ENCOUNTER 2017-01-24 18:08 | Emergency (ER) ==
[2017-01-24 18:16] VITALS: BP 144/86; TEMP 98.3; BMI 24.1
[2017-01-24] MEDS ORDERED: PHENERGAN 25 MG/ML VIAL IM STA (18:33)
[2017-01-24] MEDS ORDERED: DILAUDID 2 MG/ML SYRINGE IM STA (18:33)
--- NOTE | 2017-01-24 18:40 | ED.PDOC ---
General ED Provider: Dr. 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 jones Time Seen by Physician: 18:37 Mode of Arrival: Walk-In Information Source: Patient Exam Limitations: No limitations Primary Care Provider: ZORAN PLASCENCIA Nursing and Triage Documentation Reviewed and Agree: Yes Neurological Complaint Exam - Headache Complaint/Exam Onset: Gradual Duration: 2hrs Symptoms Are: Still present Timing: Constant Episodes Lasting: Hours Worst Headache Ever: No Initial Severity: Mild Current Severity: Moderate Location: Diffuse, Frontal, Temporal, Parietal Character: Reports: Dull, Throbbing, Pressure, Typical headache, Migraine Aggravating: Reports: Bright lights Alleviating: Reports: None Associated Signs and Symptoms: Reports: Nausea. Denies: Dizziness, Seizure, Vomiting, Sinus pressure, Fever, Neck stiffness, Decreased LOC, Visual changes Related History: Reports: Similar episode Related Surgical History: Reports: None SAH Risk Factors: Reports: None Meningitis Risk Factors: Reports: None SDH Risk Factors: Reports: None Temporal Arteritis Risk Factors: Reports: Female, Normal Head CT Within Last 12 Months: Yes Fundoscopic Exam: Present: Normal Findings Papilledema Present: No Temporal Artery Tenderness: Present: None Sinus Tenderness: Present: None TMJ Tenderness: Present: None Glascow Coma Scale (see protocol): 15 Meningeal Signs Positive: No Pain on Passive Flexion-Positive Kernig's: No ROM Limited In: No Limitiations Focal Weakness: Present: None Focal Sensory Loss: Present: None Gait: Normal Nystagmus Present: No Gag Reflex Present: Yes [id number]: Normal Findings Romberg Test Positive: No Babinski Sign: Negative Right, Negative Left Heel to Toe Normal: Yes Differential Diagnoses: Migraine Review of Systems - Review Of Systems Constitutional: Reports: No symptoms Eyes: Reports: No symptoms Ears, Nose, Mouth, Throat: Reports: No symptoms Respiratory: Reports: No symptoms Cardiac: Reports: No symptoms GI: Reports: Nausea : Reports: No symptoms Musculoskeletal: Reports: No symptoms Skin: Reports: No symptoms Neurological: Reports: Headache Endocrine: Reports: No symptoms Hematologic/Lymphatic: Reports: No symptoms All Other Systems: Reviewed and Negative Past Medical History - Past Medical History Previously Healthy: No Endocrine: Reports: DM 1 Cardiovascular: Reports: None Respiratory: Reports: None Hematological: Reports: None Gastrointestinal: Reports: None Genitourinary: Reports: None Neuro/Psych: Reports: Migraine, Anxiety, Depression Musculoskeletal: Reports: None Cancer: Reports: None Last Menstrual Period: 2 weeks ago Other Pertinent Past Medical History: LOW VIT D - Surgical History General Surgical History: Reports: Tubal ligation, (LT OVARY REMOVED) , Appendectomy, Cholecystectomy, Tonsillectomy, Adenoidectomy, Orthopedic (LEFT KNEE SURGERY), Other (EAR TUBES-ORAL SURG-LEFT BREAST TUMOR REMOVED). Denies: Hysterectomy (LT OVARY REMOVED) - Family History Family History: Reports: None - Social History Smoking Status: Current every day smoker, Light tobacco smoker Hx Substance Use: No Alcohol Screening: None Lives: With family - Immunizations Tetanus Shot up to Date: Yes Physical Exam - Physical Exam Appearance: Well-appearing, No pain distress, Well-nourished Pain Distress: Moderate Eyes: LEVI, EOMI, Conjunctiva clear ENT: Ears normal, Nose normal, Oropharynx normal Neck: Supple Respiratory: Airway patent Cardiovascular: RRR, Pulses normal, No rub, No murmur GI/: Soft, Nontender, No masses, Bowel sounds normal, No Organomegaly Musculoskeletal: Normal strength, ROM intact, No edema, No calf tenderness Skin: Warm, Dry, Normal color Neurological: Sensation intact, Motor intact, Reflexes intact, Cranial nerves intact, Alert, Oriented Psychiatric: Affect appropriate, Mood appropriate Re-Evaluation - Re-Evaluation Time of Re-Evaluation: 19:00 Status: Improved Vital Signs Stable: Yes Pain Level: 1 Appearance: NAD Lungs: Clear Skin: Warm and Dry Neuro: Alert and Oriented X3 CV: RRR Critical Care Note - Critical Care Note Total Time (mins): 0 Course - Course Orders, Labs, Meds: Orders Category Date Time Status Hydromorphone HCl/Pf [Dilaudid 2 mg/ml Syringe] MEDS 01/24/17 18:33 Discontinued 2 mg IM ONCE STA Promethazine HCl [Phenergan 25 mg/ml Vial] MEDS 01/24/17 18:33 Discontinued 25 mg IM ONCE STA Medications Discontinued Medications Generic Name Dose Route Start Last Admin Trade Name Freq PRN Reason Stop Dose Admin Hydromorphone HCl 2 mg 01/24/17 18:33 Dilaudid 2 Mg/Ml Syringe IM 01/24/17 18:34 ONCE STA Promethazine HCl 25 mg 01/24/17 18:33 Phenergan 25 Mg/Ml Vial IM 01/24/17 18:34 ONCE STA Vital Signs: Temp Pulse Resp BP Pulse Ox 01/24/17 18:09 98.3 F 90 16 144/86 H 93 L Departure - Departure Time of Disposition: 18:40 Disposition: HOME SELF-CARE Discharge Problem: Migraine headache Qualifiers: Migraine type: without aura Status migrainosus presence: without status migrainosus Intractability: not intractable Qualifier Code: (G43.009) Migraine without aura, not intractable, without status migrainosus Instructions: Migraine Headache (ED) Condition: Good Pt referred to PMD for follow-up: Yes Additional Instructions: f/u with pcp Allergies/Adverse Reactions: Allergies Sulfa (Sulfonamide Antibiotics) Allergy (Intermediate, Verified 01/24/17 18:15) Hives latex Adverse Reaction (Intermediate, Verified 01/24/17 18:15) Rash Home Medications: Ambulatory Orders Subcutaneous Insulin Pump [Insulin Pump] 1 each MC DIRECTED 06/27/13 Norgestimate-Ethinyl Estradiol [Mononessa 28 Tablet] 1 each PO DAILY 05/24/15 Sumatriptan Succinate [Imitrex] 100 mg PO BID PRN 01/12/16 Tizanidine HCl [Zanaflex] 4 mg PO BID 01/12/16 Buspirone HCl 10 mg PO TID 08/07/16 Citalopram Hydrobromide [Celexa] 10 mg PO BEDTIME #30 08/27/16 Clonazepam [Klonopin] 0.5 mg PO QID #120 08/27/16 Dextroamphetamine/Amphetamine [Adderall 10 mg Tablet] 10 mg PO DAILY LAB Amlodipine Besylate [Norvasc] 2.5 mg PO DAILY 10/16/16 Trazodone HCl 150 mg PO BEDTIME PRN #1 tablet 01/04/17 Disposition Discussed With: Patient
== END 2017-01-24 19:20 | disposition home or self-care (01) ==
LOC: ED 18:08
DX: G43.009 Migraine without aura, not intractable, without status migrainosus (principal); F17.210 Nicotine dependence, cigarettes, uncomplicated
CPT/HCPCS: 96372; 99283

== ENCOUNTER 2017-02-19 21:05 | Emergency (ER) ==
[2017-02-19] MEDS ORDERED: TORADOL IM STA (21:13)
[2017-02-19] MEDS ORDERED: PHENERGAN 25 MG/ML VIAL IM STA (21:13)
[2017-02-19] MEDS ORDERED: DILAUDID 2 MG/ML SYRINGE IM STA (21:13)
[2017-02-19] MEDS ORDERED: BENADRYL IM STA (21:13)
[2017-02-19 21:14] VITALS: BP 143/84; TEMP 98.2; BMI 23.7
--- NOTE | 2017-02-19 21:28 | ED.PDOC ---
General ED Provider: Dr. VIRAL LARRY-ER Chief Complaint: Headache Stated Complaint: hunter got a bad migraine Time Seen by Physician: 21:10 Mode of Arrival: Walk-In Information Source: Patient Exam Limitations: No limitations Primary Care Provider: ZORAN PLASCENCIA Nursing and Triage Documentation Reviewed and Agree: Yes Neurological Complaint Exam - Headache Complaint/Exam Onset: Gradual Duration: several hours Symptoms Are: Still present Timing: Constant Episodes Lasting: Hours Worst Headache Ever: No Initial Severity: Mild Current Severity: Moderate Location: Diffuse Character: Reports: Dull, Throbbing, Pressure, Typical headache, Migraine Aggravating: Reports: Bright lights Alleviating: Reports: None Associated Signs and Symptoms: Reports: Nausea. Denies: Dizziness, Seizure, Vomiting, Sinus pressure, Fever, Neck pain, Neck stiffness, Decreased LOC, Visual changes Related History: Reports: Similar episode. Denies: Recent trauma, Remote trauma Related Surgical History: Reports: None SAH Risk Factors: Reports: Smoking Meningitis Risk Factors: Reports: None SDH Risk Factors: Reports: None Temporal Arteritis Risk Factors: Reports: Female, Normal Head CT Within Last 12 Months: Yes Fundoscopic Exam: Present: Normal Findings Papilledema Present: No Temporal Artery Tenderness: Present: None Sinus Tenderness: Present: None TMJ Tenderness: Present: None Glascow Coma Scale (see protocol): 15 Meningeal Signs Positive: No Pain on Passive Flexion-Positive Kernig's: No ROM Limited In: No Limitiations Focal Weakness: Present: None Focal Sensory Loss: Present: None Gait: Normal Nystagmus Present: No Gag Reflex Present: Yes [id number]: Normal Findings Romberg Test Positive: No Babinski Sign: Negative Right, Negative Left Heel to Toe Normal: Yes Differential Diagnoses: Migraine Review of Systems - Review Of Systems Constitutional: Reports: No symptoms Eyes: Reports: No symptoms Ears, Nose, Mouth, Throat: Reports: No symptoms Respiratory: Reports: No symptoms Cardiac: Reports: No symptoms GI: Reports: Nausea : Reports: No symptoms Musculoskeletal: Reports: No symptoms Skin: Reports: No symptoms Neurological: Reports: Headache Endocrine: Reports: No symptoms Hematologic/Lymphatic: Reports: No symptoms All Other Systems: Reviewed and Negative Past Medical History - Past Medical History Previously Healthy: No Endocrine: Reports: DM 1 Cardiovascular: Reports: None Respiratory: Reports: None Hematological: Reports: None Gastrointestinal: Reports: None Genitourinary: Reports: None Neuro/Psych: Reports: Migraine, Anxiety, Depression Musculoskeletal: Reports: None Cancer: Reports: None Last Menstrual Period: 2 weeks ago Other Pertinent Past Medical History: LOW VIT D - Surgical History General Surgical History: Reports: Tubal ligation, (LT OVARY REMOVED) , Appendectomy, Cholecystectomy, Tonsillectomy, Adenoidectomy, Orthopedic (LEFT KNEE SURGERY), Other (EAR TUBES-ORAL SURG-LEFT BREAST TUMOR REMOVED). Denies: Hysterectomy (LT OVARY REMOVED) - Family History Family History: Reports: None - Social History Smoking Status: Current every day smoker, Light tobacco smoker Hx Substance Use: No Alcohol Screening: None Lives: With family - Immunizations Tetanus Shot up to Date: Yes Physical Exam - Physical Exam Appearance: Well-appearing Pain Distress: Moderate Eyes: LEVI, EOMI, Conjunctiva clear ENT: Ears normal, Nose normal, Oropharynx normal Neck: Supple Respiratory: Airway patent, Breath sounds clear, Breath sounds equal, Respirations nonlabored Cardiovascular: RRR, Pulses normal, No rub, No murmur GI/: Soft, Nontender, No masses, Bowel sounds normal, No Organomegaly Musculoskeletal: Normal strength, ROM intact, No edema, No calf tenderness Skin: Warm, Dry, Normal color Neurological: Sensation intact Psychiatric: Affect appropriate, Mood appropriate Re-Evaluation - Re-Evaluation Time of Re-Evaluation: 21:45 Status: Improved Vital Signs Stable: Yes Pain Level: 1 Appearance: NAD Lungs: Clear Skin: Warm and Dry Neuro: Alert and Oriented X3 CV: RRR Critical Care Note - Critical Care Note Total Time (mins): 0 Course - Course Orders, Labs, Meds: Orders Category Date Time Status Diphenhydramine Inj [Benadryl] MEDS 02/19/17 21:13 Discontinued 50 mg IM ONCE STA Hydromorphone HCl/Pf [Dilaudid 2 mg/ml Syringe] MEDS 02/19/17 21:13 Discontinued 2 mg IM ONCE STA Ketorolac Tromethamine [Toradol] MEDS 02/19/17 21:13 Discontinued 60 mg IM ONCE STA Promethazine HCl [Phenergan 25 mg/ml Vial] MEDS 02/19/17 21:13 Discontinued 25 mg IM ONCE STA Medications Discontinued Medications Generic Name Dose Route Start Last Admin Trade Name Freq PRN Reason Stop Dose Admin Diphenhydramine HCl 50 mg 02/19/17 21:13 Benadryl IM 02/19/17 21:14 ONCE STA Hydromorphone HCl 2 mg 02/19/17 21:13 Dilaudid 2 Mg/Ml Syringe IM 02/19/17 21:14 ONCE STA Ketorolac Tromethamine 60 mg 02/19/17 21:13 Toradol IM 02/19/17 21:14 ONCE STA Promethazine HCl 25 mg 02/19/17 21:13 Phenergan 25 Mg/Ml Vial IM 02/19/17 21:14 ONCE STA Vital Signs: Temp Pulse Resp BP Pulse Ox 02/19/17 21:06 98.2 F 102 H 20 143/84 H 97 Departure - Departure Time of Disposition: 21:28 Disposition: HOME SELF-CARE Discharge Problem: Migraine headache Qualifiers: Migraine type: unspecified Status migrainosus presence: without status migrainosus Intractability: not intractable Qualifier Code: (G43.909) Migraine, unspecified, not intractable, without status migrainosus Instructions: Migraine Headache (ED) Condition: Good Pt referred to PMD for follow-up: Yes Additional Instructions: f/u with pcp Allergies/Adverse Reactions: Allergies Sulfa (Sulfonamide Antibiotics) Allergy (Intermediate, Verified 02/19/17 21:10) Hives latex Adverse Reaction (Intermediate, Verified 02/19/17 21:10) Rash Home Medications: Ambulatory Orders Subcutaneous Insulin Pump [Insulin Pump] 1 each MC DIRECTED 06/27/13 Norgestimate-Ethinyl Estradiol [Mononessa 28 Tablet] 1 each PO DAILY 05/24/15 Sumatriptan Succinate [Imitrex] 100 mg PO BID PRN 01/12/16 Tizanidine HCl [Zanaflex] 4 mg PO BID 01/12/16 Buspirone HCl 10 mg PO TID 08/07/16 Citalopram Hydrobromide [Celexa] 10 mg PO BEDTIME #30 08/27/16 Clonazepam [Klonopin] 0.5 mg PO QID #120 08/27/16 Dextroamphetamine/Amphetamine [Adderall 10 mg Tablet] 10 mg PO DAILY LAB Amlodipine Besylate [Norvasc] 2.5 mg PO DAILY 10/16/16 Trazodone HCl 150 mg PO BEDTIME PRN #1 tablet 01/04/17 Disposition Discussed With: Patient
== END 2017-02-19 21:54 | disposition home or self-care (01) ==
LOC: ED 21:05
DX: G43.909 Migraine, unspecified, not intractable, without status migrainosus (principal); F17.210 Nicotine dependence, cigarettes, uncomplicated
CPT/HCPCS: 96372; 99283

== ENCOUNTER 2017-03-05 20:41 | Emergency (ER) ==
--- NOTE | 2017-03-05 20:49 | ED.PDOC ---
General ED Provider: Dr. 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 Time Seen by Physician: 20:47 Mode of Arrival: Walk-In Information Source: Patient Exam Limitations: No limitations Primary Care Provider: ZORAN PLASCENCIA Nursing and Triage Documentation Reviewed and Agree: Yes Neurological Complaint Exam - Headache Complaint/Exam Onset: Gradual Duration: several hours Symptoms Are: Still present Timing: Constant Episodes Lasting: Hours Worst Headache Ever: No Initial Severity: Mild Current Severity: Moderate Location: Diffuse Character: Reports: Dull, Throbbing, Pressure, Typical headache, Migraine Aggravating: Reports: Bright lights Alleviating: Reports: None Associated Signs and Symptoms: Reports: Nausea. Denies: Dizziness, Seizure, Vomiting, Sinus pressure, Fever, Neck pain, Neck stiffness, Decreased LOC, Visual changes Related History: Reports: Similar episode. Denies: Recent trauma, Remote trauma Related Surgical History: Reports: None SAH Risk Factors: Reports: None Meningitis Risk Factors: Reports: None SDH Risk Factors: Reports: None Temporal Arteritis Risk Factors: Reports: Female, Normal Head CT Within Last 12 Months: Yes Fundoscopic Exam: Present: Normal Findings Papilledema Present: Yes Temporal Artery Tenderness: Present: None Sinus Tenderness: Present: None TMJ Tenderness: Present: None Glascow Coma Scale (see protocol): 15 Meningeal Signs Positive: No Pain on Passive Flexion-Positive Kernig's: No ROM Limited In: No Limitiations Focal Weakness: Present: None Focal Sensory Loss: Present: None Gait: Normal Nystagmus Present: No Gag Reflex Present: Yes [id number]: Normal Findings Romberg Test Positive: No Babinski Sign: Negative Right, Negative Left Heel to Toe Normal: Yes Differential Diagnoses: Migraine Review of Systems - Review Of Systems Constitutional: Reports: No symptoms Eyes: Reports: No symptoms Ears, Nose, Mouth, Throat: Reports: No symptoms Respiratory: Reports: No symptoms Cardiac: Reports: No symptoms GI: Reports: Nausea : Reports: No symptoms Musculoskeletal: Reports: No symptoms Skin: Reports: No symptoms Neurological: Reports: Headache Endocrine: Reports: No symptoms Hematologic/Lymphatic: Reports: No symptoms All Other Systems: Reviewed and Negative Past Medical History - Past Medical History Previously Healthy: No Endocrine: Reports: DM 1 Cardiovascular: Reports: None Respiratory: Reports: None Hematological: Reports: None Gastrointestinal: Reports: None Genitourinary: Reports: None Neuro/Psych: Reports: Migraine, Anxiety, Depression Musculoskeletal: Reports: None Cancer: Reports: None Other Pertinent Past Medical History: LOW VIT D - Surgical History General Surgical History: Reports: Tubal ligation, (LT OVARY REMOVED) , Appendectomy, Cholecystectomy, Tonsillectomy, Adenoidectomy, Orthopedic (LEFT KNEE SURGERY), Other (EAR TUBES-ORAL SURG-LEFT BREAST TUMOR REMOVED). Denies: Hysterectomy (LT OVARY REMOVED) - Family History Family History: Reports: None - Social History Smoking Status: Current every day smoker, Light tobacco smoker Hx Substance Use: No Alcohol Screening: None Lives: With family Physical Exam - Physical Exam Appearance: Well-appearing Pain Distress: Moderate Eyes: LEVI, EOMI, Conjunctiva clear ENT: Ears normal, Nose normal, Oropharynx normal Neck: Supple Respiratory: Airway patent, Breath sounds clear, Breath sounds equal, Respirations nonlabored Cardiovascular: RRR, Pulses normal, No rub, No murmur GI/: Soft Musculoskeletal: Normal strength, ROM intact, No edema, No calf tenderness Skin: Warm, Dry, Normal color Neurological: Sensation intact, Motor intact, Reflexes intact, Cranial nerves intact, Alert, Oriented Psychiatric: Affect appropriate Re-Evaluation - Re-Evaluation Time of Re-Evaluation: 21:25 Status: Improved Vital Signs Stable: Yes Pain Level: 1 Appearance: NAD Lungs: Clear Skin: Warm and Dry Neuro: Alert and Oriented X3 CV: RRR Critical Care Note - Critical Care Note Total Time (mins): 0 Course - Course Orders, Labs, Meds: Orders Category Date Time Status Hydromorphone HCl/Pf [Dilaudid 2 mg/ml Syringe] MEDS 03/05/17 20:45 Discontinued 2 mg IM ONCE STA Ketorolac Tromethamine [Toradol] MEDS 03/05/17 20:46 Stat 60 mg IM ONCE STA Promethazine HCl [Phenergan 25 mg/ml Vial] MEDS 03/05/17 20:45 Discontinued 25 mg IM ONCE STA Medications Generic Name Dose Route Start Last Admin Trade Name Freq PRN Reason Stop Dose Admin Ketorolac Tromethamine 60 mg 03/05/17 20:46 Toradol IM 03/05/17 20:47 ONCE STA Discontinued Medications Generic Name Dose Route Start Last Admin Trade Name Freq PRN Reason Stop Dose Admin Hydromorphone HCl 2 mg 03/05/17 20:45 Dilaudid 2 Mg/Ml Syringe IM 03/05/17 20:46 ONCE STA Promethazine HCl 25 mg 03/05/17 20:45 Phenergan 25 Mg/Ml Vial IM 03/05/17 20:46 ONCE STA Departure - Departure Time of Disposition: 20:49 Disposition: HOME SELF-CARE Discharge Problem: Migraine headache Qualifiers: Migraine type: unspecified Status migrainosus presence: without status migrainosus Intractability: not intractable Qualifier Code: (G43.909) Migraine, unspecified, not intractable, without status migrainosus Instructions: Migraine Headache (ED) Condition: Good Pt referred to PMD for follow-up: Yes Additional Instructions: f/u with pcp Allergies/Adverse Reactions: Allergies Sulfa (Sulfonamide Antibiotics) Allergy (Intermediate, Verified 02/19/17 21:10) Hives latex Adverse Reaction (Intermediate, Verified 02/19/17 21:10) Rash Home Medications: Ambulatory Orders Subcutaneous Insulin Pump [Insulin Pump] 1 each MC DIRECTED 06/27/13 Norgestimate-Ethinyl Estradiol [Mononessa 28 Tablet] 1 each PO DAILY 05/24/15 Sumatriptan Succinate [Imitrex] 100 mg PO BID PRN 01/12/16 Tizanidine HCl [Zanaflex] 4 mg PO BID 01/12/16 Buspirone HCl 10 mg PO TID 08/07/16 Citalopram Hydrobromide [Celexa] 10 mg PO BEDTIME #30 08/27/16 Clonazepam [Klonopin] 0.5 mg PO QID #120 08/27/16 Dextroamphetamine/Amphetamine [Adderall 10 mg Tablet] 10 mg PO DAILY LAB Amlodipine Besylate [Norvasc] 2.5 mg PO DAILY 10/16/16 Trazodone HCl 150 mg PO BEDTIME PRN #1 tablet 01/04/17 Disposition Discussed With: Patient
[2017-03-05 20:50] VITALS: BP 129/77; TEMP 98.3; BMI 24.5
[2017-03-05] MEDS: PHENERGAN 25 MG/ML VIAL IM STA (21:00)
[2017-03-05] MEDS: DILAUDID 2 MG/ML SYRINGE IM STA (21:01)
[2017-03-05] MEDS: TORADOL IM STA (21:04)
== END 2017-03-05 21:37 | disposition home or self-care (01) ==
LOC: ED 20:41
DX: G43.909 Migraine, unspecified, not intractable, without status migrainosus (principal); F17.210 Nicotine dependence, cigarettes, uncomplicated
CPT/HCPCS: 96372; 99283

== ENCOUNTER 2017-03-07 18:04 | Emergency (ER) ==
[2017-03-07 18:04] VITALS: BMI 24.5
--- NOTE | 2017-03-07 18:24 | ED.PDOC ---
General Stated Complaint: ABDOMINAL PAIN Time Seen by Physician: 18:00 (SEEN WITH MAY AT ALL TIMES ) Mode of Arrival: Walk-In Information Source: Patient Exam Limitations: No limitations Nursing and Triage Documentation Reviewed and Agree: Yes (NEGATIVE TRAUMA HX OF TYPE1 DM) <NATASHAANNETTE Last Filed: 03/07/17 18:22> <VIRAL KAUFFMAN - Last Filed: 03/07/17 19:33> ED Provider: Dr. VIRAL LARRY-CHRISTIAN Chief Complaint: Abdominal Pain Primary Care Provider: ZORAN PLASCENCIA GI Complaint Exam - Abdominal Pain Complaint/Exam Onset: Sudden Duration: 4.5 HOURS Symptoms Are: Still present Timing: Constant Initial Severity: Moderate Current Severity: Moderate (PERIUMBLICAL) Location of Pain: Discrete Character: Reports: Aching Aggravating: Reports: None Alleviating: Reports: None Associated Signs and Symptoms: Reports: Vomiting (X2). Denies: Diaphoresis, Fever, Cough, Chest pain, Dizziness, Back pain, Constipation, Blood in stool, Dysuria, Urinary frequency, Decreased urine output, Decreased appetite, Vaginal bleeding, Vaginal discharge, Nausea, Diarrhea, Sore throat, Decreased activity Related History: Reports: Similar episode (DKA) AAA Risk Factors: Reports: None Cardiac Risk Factors: Reports: DM (TYPE1 SINCE AGE 7) Ectopic Risk Factors: Reports: None Ovarian Torsion Risk Factors: Reports: Reproductive age Surgical Obstruction Risk Factors: Reports: None Related Surgical History: Reports: None Patient Rh Status: Unknown Abdominal Findings: Present: None Differential Diagnoses: Appendicitis <ANNETTE KAUR Filed: 03/07/17 18:22> Review of Systems - Review Of Systems Constitutional: Reports: No symptoms Eyes: Reports: No symptoms Ears, Nose, Mouth, Throat: Reports: No symptoms Respiratory: Reports: No symptoms Cardiac: Reports: No symptoms GI: Reports: Abdominal pain, Nausea, Vomiting : Reports: No symptoms Musculoskeletal: Reports: No symptoms Skin: Reports: No symptoms Neurological: Reports: No symptoms Endocrine: Reports: No symptoms Hematologic/Lymphatic: Reports: No symptoms All Other Systems: Reviewed and Negative <ANNETTE KAUR Last Filed: 03/07/17 18:22> Past Medical History - Past Medical History Previously Healthy: No Endocrine: Reports: DM 1 Cardiovascular: Reports: None Respiratory: Reports: None Hematological: Reports: None Gastrointestinal: Reports: None Genitourinary: Reports: None Neuro/Psych: Reports: Migraine, Anxiety, Depression Musculoskeletal: Reports: None Cancer: Reports: None Last Menstrual Period: 3 weeks ago Other Pertinent Past Medical History: LOW VIT D - Surgical History General Surgical History: Reports: Tubal ligation, (LT OVARY REMOVED) , Appendectomy, Cholecystectomy, Tonsillectomy, Adenoidectomy, Orthopedic (LEFT KNEE SURGERY), Other (EAR TUBES-ORAL SURG-LEFT BREAST TUMOR REMOVED). Denies: Hysterectomy (LT OVARY REMOVED) - Family History Family History: Reports: None - Social History Smoking Status: Current every day smoker, Heavy tobacco smoker Hx Substance Use: No Alcohol Screening: None <ANNETTE KAUR - Last Filed: 03/07/17 18:22> Physical Exam - Physical Exam Appearance: Ill-appearing Ill-appearing: Mild Pain Distress: Mild Eyes: LEVI, EOMI, Conjunctiva clear ENT: Ears normal, Nose normal, Oropharynx normal Respiratory: Airway patent, Breath sounds clear, Breath sounds equal, Respirations nonlabored Cardiovascular: RRR, Pulses normal, No rub, No murmur GI/: Soft, Nontender, No masses, Bowel sounds normal, No Organomegaly Musculoskeletal: Normal strength, ROM intact, No edema, No calf tenderness Skin: Warm, Dry, Normal color Neurological: Sensation intact, Motor intact, Reflexes intact, Cranial nerves intact, Alert, Oriented Psychiatric: Affect appropriate, Mood appropriate <ANNETTE KAUR - Last Filed: 03/07/17 18:22> Re-Evaluation - Re-Evaluation Time of Re-Evaluation: 19:32 Status: Improved Vital Signs Stable: Yes Pain Level: 1 Appearance: NAD Lungs: Clear Skin: Warm and Dry Neuro: Alert and Oriented X3 CV: RRR <VIRAL KAUFFMAN - Last Filed: 03/07/17 19:33> Critical Care Note - Critical Care Note Total Time (mins): 0 <ANNETTE KAUR - Last Filed: 03/07/17 18:22> Course - Course Hematology/Chemistry: 03/07/17 18:20 03/07/17 18:20 <VIRAL KAUFFMAN - Last Filed: 03/07/17 19:33> - Course Orders, Labs, Meds: Lab Review 03/07/17 03/07/17 03/07/17 18:20 18:35 18:38 WBC 12.45 H RBC 4.82 Hgb 14.6 Hct 43.4 MCV 90.0 MCH 30.3 MCHC 33.6 RDW Coeff of Giovanni 12.7 Plt Count 347 Immature Gran % (Auto) 0.4 Neut % (Auto) 86.6 Lymph % (Auto) 6.8 L Simpson % (Auto) 4.3 Eos % (Auto) 1.7 Baso % (Auto) 0.2 Immature Gran # (Auto) 0.1 Neut # 10.8 H Lymph # 0.9 Simpson # 0.5 Eos # 0.2 Baso # 0.0 Puncture Site Lb O2 Saturation 94.0 L ABG pH 7.383 ABG pCO2 38.0 ABG pO2 71.0 L ABG HCO3 22.7 ABG Total CO2 24 ABG Base Excess -2 Jorge L Test + FiO2 % 21.0 Sodium 138 Potassium 3.8 Chloride 104 Carbon Dioxide 24 Anion Gap 13.8 BUN 13 Creatinine 0.69 Estimated GFR (MDRD) 101.00 BUN/Creatinine Ratio 18.84 Glucose 153 H Calcium 8.9 Total Bilirubin 1.00 AST 12 L ALT 9 L Alkaline Phosphatase 78 Total Creatine Kinase 31 Troponin I 0.0110 Total Protein 7.0 Albumin 3.9 Globulin 3.1 Albumin/Globulin Ratio 1.26 Amylase 48 Lipase 21 Urine Color Yellow Urine Clarity Clear Urine pH 5.0 Ur Specific Reserve 1.015 Urine Protein Negative Urine Glucose (UA) Negative Urine Ketones 1+ Urine Blood Trace-intact Urine Nitrite Negative Urine Bilirubin Negative Urine Urobilinogen 0.2 Ur Leukocyte Esterase Trace Urine Microscopic WBC 2-5 Ur Squamous Epith Cells 20-30 Urine Bacteria 3+ Urine Test Negative Orders Category Date Time Status ABG DRAW REQUEST Stat CARDIO 03/07/17 18:39 Completed EKG-(ED ONLY) Stat CARDIO 03/07/17 18:38 Completed ABG Stat LAB 03/07/17 18:38 Completed AMYLASE Stat LAB 03/07/17 18:20 Completed CBC W/ AUTO DIFF Stat LAB 03/07/17 18:20 Completed COMPREHENSIVE METABOLIC PANEL Stat LAB 03/07/17 18:20 Completed CREATINE KINASE Stat LAB 03/07/17 18:35 Completed LIPASE Stat LAB 03/07/17 18:20 Completed TROPONIN I Stat LAB 03/07/17 18:35 Completed URINALYSIS C & S IF INDICATED Stat LAB 03/07/17 18:20 Completed URINE CULTURE Stat LAB 03/07/17 18:20 Received URINE Stat LAB 03/07/17 18:20 Completed Hydromorphone HCl/Pf [Dilaudid 2 mg/ml Syringe] MEDS 03/07/17 18:39 Discontinued 2 mg IM ONCE STA Promethazine HCl [Phenergan 25 mg/ml Vial] MEDS 03/07/17 18:39 Discontinued 25 mg IM ONCE STA CT ABDOMEN/PELVIS WO CONTRAST Stat RADS 03/07/17 18:16 Completed Medications Discontinued Medications Generic Name Dose Route Start Last Admin Trade Name Linsey VALENTE Reason Stop Dose Admin Hydromorphone HCl 2 mg 03/07/17 18:39 03/07/17 19:01 Dilaudid 2 Mg/Ml Syringe IM 03/07/17 18:40 2 mg ONCE STA Administration Promethazine HCl 25 mg 03/07/17 18:39 03/07/17 19:02 Phenergan 25 Mg/Ml Vial IM 03/07/17 18:40 25 mg ONCE STA Administration Vital Signs: Temp Pulse Resp BP Pulse Ox 03/07/17 18:04 99.3 F 106 H 20 124/78 97 Departure - Departure Pt referred to PMD for follow-up: No Disposition Discussed With: Patient <ANNETTE KAUR - Last Filed: 03/07/17 18:22> - Departure Time of Disposition: 19:33 Pt referred to PMD for follow-up: Yes Disposition Discussed With: Patient <LARONVIRAL HARPER - Last Filed: 03/07/17 19:33> - Departure Disposition: HOME SELF-CARE Discharge Problem: Abdominal pain Migraine headache Qualifiers: Migraine type: unspecified Status migrainosus presence: without status migrainosus Intractability: not intractable Qualifier Code: (G43.909) Migraine, unspecified, not intractable, without status migrainosus Instructions: Abdominal Pain (ED), Type 1 Diabetes in Adults (ED) Condition: Good Additional Instructions: f/u with dr [place] concerning ovarian cyst Allergies/Adverse Reactions: Allergies Sulfa (Sulfonamide Antibiotics) Allergy (Intermediate, Verified 03/07/17 18:10) Hives latex Adverse Reaction (Intermediate, Verified 03/07/17 18:10) Rash Home Medications: Ambulatory Orders Subcutaneous Insulin Pump [Insulin Pump] 1 each DIRECTED 08/27/13 Norgestimate-Ethinyl Estradiol [Mononessa 28 Tablet] 1 each PO DAILY 05/24/15 Sumatriptan Succinate [Imitrex] 100 mg PO BID PRN 01/12/16 Tizanidine HCl [Zanaflex] 4 mg PO BID 01/12/16 Buspirone HCl 10 mg PO TID 08/07/16 Citalopram Hydrobromide [Celexa] 10 mg PO BEDTIME #30 08/27/16 Clonazepam [Klonopin] 0.5 mg PO QID #120 08/27/16 Dextroamphetamine/Amphetamine [Adderall 10 mg Tablet] 10 mg PO DAILY LAB Amlodipine Besylate [Norvasc] 2.5 mg PO DAILY 10/16/16 Trazodone HCl 150 mg PO BEDTIME PRN #1 tablet 01/04/17
[2017-03-07 18:27] VITALS: BP 124/78; TEMP 99.3
[2017-03-07 18:28] LABS: ADD URINE MICROSCOPIC YES; BILIRUBIN,URINE Negative (NEGATIVE); KETONES,URINE 1+ (NEGATIVE); LEUKOCYTE ESTERASE ,URINE Trace (NEGATIVE); NITRITE,URINE Negative (NEGATIVE); PROTEIN,URINE Negative (NEGATIVE); URINE, BLOOD Trace-intact (NEGATIVE)
[2017-03-07 18:29] LABS: BACTERIA,URINE 3+ (NOT PRESENT)
[2017-03-07 18:30] LABS: URINE PREGNANCY INTERNAL QC INTERNAL QC VALID
[2017-03-07 18:32] LABS: BASOPHILS % (AUTO) 0.2 % (0.0-3.0); EOSINOPHILS # (AUTO) 0.2 K/ul (0.0-0.7); EOSINOPHILS % (AUTO) 1.7 % (0.0-7.0); HEMATOCRIT 43.4 % (37.0-47.0); HEMOGLOBIN 14.6 g/dl (12.0-16.0); IMMATURE GRANULOCYTE % (AUTO) 0.4 % (0.0-5.0); LYMPHOCYTES # (AUTO) 0.9 K/uL (0.60-3.4); LYMPHOCYTES % (AUTO) 6.8 (10.0-50.0); MEAN CORPUSCULAR HEMOGLOBIN 30.3 pg (27.0-31.0); MEAN CORPUSCULAR HGB CONC 33.6 (31.8-35.4); MONOCYTES # (AUTO) 0.5 K/uL (0.4-2.0); MONOCYTES % (AUTO) 4.3 (0-10); NEUTROPHILS # (AUTO) 10.8 K/ul (2.0-6.9); NEUTROPHILS % (AUTO) 86.6; PLATELET COUNT 347 10^3/uL (140-440); RED BLOOD COUNT 4.82 10^6/ul (4.20-5.40); WHITE BLOOD COUNT 12.45 K/ul (4.6-10.2)
[2017-03-07] MEDS ORDERED: PHENERGAN 25 MG/ML VIAL IM STA (18:39)
[2017-03-07] MEDS ORDERED: DILAUDID 2 MG/ML SYRINGE IM STA (18:39)
[2017-03-07 18:58] LABS: ABG PH 7.383 (7.35-7.45)
[2017-03-07 18:59] LABS: ABG BASE EXCESS -2 (-2.0-2.0); ABG HCO3 22.7 (22.0-26.0); ABG TCO2 24 (22.0-28.0)
[2017-03-07 19:02] LABS: ALBUMIN 3.9 g/dL (3.4-5.0); ALBUMIN/GLOBULIN RATIO 1.26; ANION GAP 13.8; BUN/CREATININE RATIO 18.84; CALCIUM 8.9 mg/dL (8.2-10.2); CREATININE 0.69 mg/dL (0.60-1.30); POTASSIUM 3.8 mmol/L (3.5-5.10)
[2017-03-07 19:06] LABS: TROPONIN I 0.011 ng/ml (0.0000-0.4000)
--- NOTE | 2017-03-07 19:27 | CT ---
EXAM: CT abdomen pelvis without contrast TECHNIQUE: Helical axial CT of the abdomen pelvis was performed without contrast with coronal and s agittal reconstructions. COMPARISON: CT abdomen pelvis from 01/02/2017 HISTORY: Upper abdominal pain and nausea and vomiting FINDINGS: There is no free air or bowel wall thickening or edema identified. There are some promin ent fluid-filled loops of small bowel seen which may represent a gastroenteritis. The pattern does n ot look particularly obstructive. There may be a small amount of free fluid in the pelvis. There is of fluid attenuation region in the right adnexal area which measures about 3.5 cm in diameter. Thi s may represent a right ovarian cyst although it is poorly defined on the study without contrast. T here has been prior appendectomy. There are multiple punctate renal stones which are stable but wit hout evidence of hydronephrosis. There are no ureteral stones. Uterus is unchanged. The liver, sp coy, pancreas, adrenal glands are stable. There has been prior cholecystectomy. The fat planes of the abdomen and pelvis are poorly seen however this was present on the previous examination. There is no acute osseous abnormality. IMPRESSION: 1. Multiple prominent fluid-filled loops of small bowel as described which probably is on the basis of a gastroenteritis. 2. Probable right ovarian cyst. If clinically indicated ultrasound may be helpful. 3. Prior appendectomy and prior cholecystectomy. 4. Multiple punctate renal stones bilaterally without evidence for obstruction. This may be on the basis of medullary nephrocalcinosis. 5. Possible small amount of free fluid in the pelvis which is likely physiologic. Report called to Dr. Garcia
== END 2017-03-07 19:41 | disposition home or self-care (01) ==
LOC: ED 18:04
DX: G43.909 Migraine, unspecified, not intractable, without status migrainosus (principal); E10.9 Type 1 diabetes mellitus without complications; R10.9 Unspecified abdominal pain; F17.210 Nicotine dependence, cigarettes, uncomplicated; Z79.899 Other long term (current) drug therapy
CPT/HCPCS: 36415; 80053; 81001; 81025; 82150; 82550; 82803; 83690; 84484; 85025; 87086; 93005; 93010; 96372; 99283

== ENCOUNTER 2017-03-14 19:22 | Emergency (ER) ==
[2017-03-14] MEDS ORDERED: PHENERGAN 25 MG/ML VIAL IM STA (19:23)
[2017-03-14] MEDS ORDERED: DILAUDID 2 MG/ML SYRINGE IM STA (19:23)
--- NOTE | 2017-03-14 19:26 | ED.PDOC ---
General ED Provider: Dr. VIRAL LARRY-ER Chief Complaint: Headache Stated Complaint: i have a bad migraine jones--i see my neurologsit this week Time Seen by Physician: 19:24 Mode of Arrival: Walk-In Information Source: Patient Primary Care Provider: ZORAN PLASCENCIA Nursing and Triage Documentation Reviewed and Agree: Yes Neurological Complaint Exam - Headache Complaint/Exam Onset: Gradual Duration: severa hours Symptoms Are: Still present Timing: Intermittent Episodes Lasting: Hours Worst Headache Ever: No Initial Severity: Mild Current Severity: Moderate Location: Diffuse Character: Reports: Dull, Throbbing, Pressure, Typical headache, Migraine Aggravating: Reports: Bright lights Alleviating: Reports: None Associated Signs and Symptoms: Reports: Nausea, Vomiting. Denies: Dizziness, Seizure, Sinus pressure, Fever, Neck pain, Neck stiffness, Decreased LOC, Visual changes Related History: Reports: Similar episode Related Surgical History: Reports: None SAH Risk Factors: Reports: None Meningitis Risk Factors: Reports: None SDH Risk Factors: Reports: None Temporal Arteritis Risk Factors: Reports: Female, Normal Head CT Within Last 12 Months: Yes Fundoscopic Exam: Present: Normal Findings Papilledema Present: No Temporal Artery Tenderness: Present: None Sinus Tenderness: Present: None TMJ Tenderness: Present: None Meningeal Signs Positive: No Pain on Passive Flexion-Positive Kernig's: No ROM Limited In: No Limitiations Focal Weakness: Present: None Focal Sensory Loss: Present: None Gait: Normal Nystagmus Present: No Gag Reflex Present: Yes [id number]: Normal Findings Romberg Test Positive: No Babinski Sign: Negative Right, Negative Left Heel to Toe Normal: Yes Differential Diagnoses: Migraine Review of Systems - Review Of Systems Constitutional: Reports: No symptoms Eyes: Reports: No symptoms Ears, Nose, Mouth, Throat: Reports: No symptoms Respiratory: Reports: No symptoms Cardiac: Reports: No symptoms GI: Reports: Nausea, Vomiting : Reports: No symptoms Musculoskeletal: Reports: No symptoms Skin: Reports: No symptoms Neurological: Reports: No symptoms Endocrine: Reports: No symptoms Hematologic/Lymphatic: Reports: No symptoms All Other Systems: Reviewed and Negative Past Medical History - Past Medical History Previously Healthy: No Endocrine: Reports: DM 1 Cardiovascular: Reports: None Respiratory: Reports: None Hematological: Reports: None Gastrointestinal: Reports: None Genitourinary: Reports: None Neuro/Psych: Reports: Migraine, Anxiety, Depression Musculoskeletal: Reports: None Cancer: Reports: None Other Pertinent Past Medical History: LOW VIT D - Surgical History General Surgical History: Reports: Tubal ligation, (LT OVARY REMOVED) , Appendectomy, Cholecystectomy, Tonsillectomy, Adenoidectomy, Orthopedic (LEFT KNEE SURGERY), Other (EAR TUBES-ORAL SURG-LEFT BREAST TUMOR REMOVED). Denies: Hysterectomy (LT OVARY REMOVED) - Family History Family History: Reports: None - Social History Smoking Status: Current every day smoker, Heavy tobacco smoker Hx Substance Use: No Alcohol Screening: None Lives: With family Physical Exam - Physical Exam Appearance: Well-appearing, Well-nourished Pain Distress: Moderate Eyes: LEVI, EOMI, Conjunctiva clear ENT: Ears normal, Nose normal, Oropharynx normal Neck: Supple Respiratory: Airway patent, Breath sounds clear, Breath sounds equal, Respirations nonlabored Cardiovascular: RRR, Pulses normal, No rub, No murmur GI/: Soft, Nontender, No masses, Bowel sounds normal, No Organomegaly Musculoskeletal: Normal strength, ROM intact, No edema, No calf tenderness Skin: Warm Neurological: Sensation intact Psychiatric: Affect appropriate, Mood appropriate Re-Evaluation - Re-Evaluation Time of Re-Evaluation: 20:00 Status: Improved Vital Signs Stable: Yes Pain Level: 1 Appearance: NAD Lungs: Clear Skin: Warm and Dry Neuro: Alert and Oriented X3 CV: RRR Critical Care Note - Critical Care Note Total Time (mins): 0 Course - Course Orders, Labs, Meds: Orders Category Date Time Status Hydromorphone HCl/Pf [Dilaudid 2 mg/ml Syringe] MEDS 03/14/17 19:23 Stat 2 mg IM ONCE STA Promethazine HCl [Phenergan 25 mg/ml Vial] MEDS 03/14/17 19:23 Stat 25 mg IM ONCE STA Medications Discontinued Medications Generic Name Dose Route Start Last Admin Trade Name Freq PRN Reason Stop Dose Admin Hydromorphone HCl 2 mg 03/14/17 19:23 Dilaudid 2 Mg/Ml Syringe IM 03/14/17 19:24 ONCE STA Promethazine HCl 25 mg 03/14/17 19:23 Phenergan 25 Mg/Ml Vial IM 03/14/17 19:24 ONCE STA Departure - Departure Time of Disposition: 19:27 Disposition: HOME SELF-CARE Discharge Problem: Migraine headache Qualifiers: Migraine type: without aura Status migrainosus presence: without status migrainosus Intractability: not intractable Qualifier Code: (G43.009) Migraine without aura, not intractable, without status migrainosus Instructions: Migraine Headache (ED) Condition: Good Pt referred to PMD for follow-up: Yes Additional Instructions: keep f/u with neurology this week Allergies/Adverse Reactions: Allergies Sulfa (Sulfonamide Antibiotics) Allergy (Intermediate, Verified 03/07/17 18:10) Hives latex Adverse Reaction (Intermediate, Verified 03/07/17 18:10) Rash Home Medications: Ambulatory Orders Subcutaneous Insulin Pump [Insulin Pump] 1 each MC DIRECTED 06/27/13 Norgestimate-Ethinyl Estradiol [Mononessa 28 Tablet] 1 each PO DAILY 05/24/15 Sumatriptan Succinate [Imitrex] 100 mg PO BID PRN 01/12/16 Tizanidine HCl [Zanaflex] 4 mg PO BID 01/12/16 Buspirone HCl 10 mg PO TID 08/07/16 Citalopram Hydrobromide [Celexa] 10 mg PO BEDTIME #30 08/27/16 Clonazepam [Klonopin] 0.5 mg PO QID #120 08/27/16 Dextroamphetamine/Amphetamine [Adderall 10 mg Tablet] 10 mg PO DAILY LAB Amlodipine Besylate [Norvasc] 2.5 mg PO DAILY 10/16/16 Trazodone HCl 150 mg PO BEDTIME PRN #1 tablet 01/04/17 Disposition Discussed With: Patient
[2017-03-14 19:30] VITALS: BP 124/73; TEMP 98.8; BMI 24.7
== END 2017-03-14 20:06 | disposition home or self-care (01) ==
LOC: ED 19:22
DX: G43.009 Migraine without aura, not intractable, without status migrainosus (principal); F17.210 Nicotine dependence, cigarettes, uncomplicated; Z79.899 Other long term (current) drug therapy
CPT/HCPCS: 96372; 99284

== ENCOUNTER 2017-03-27 19:28 | Emergency (ER) ==
--- NOTE | 2017-03-27 19:32 | ED.PDOC ---
General ED Provider: Dr. VIRAL LARRY-ER Chief Complaint: Headache Stated Complaint: hunter got a bad migraine--im nauseated...cant keep down my meds but i am not vomiting Time Seen by Physician: 19:30 Mode of Arrival: Walk-In Information Source: Patient Exam Limitations: No limitations Primary Care Provider: ZORAN PLASCENCIA Nursing and Triage Documentation Reviewed and Agree: Yes Neurological Complaint Exam - Headache Complaint/Exam Onset: Gradual Duration: several hours Symptoms Are: Still present Timing: Constant Episodes Lasting: Hours Worst Headache Ever: No Initial Severity: Mild Current Severity: Moderate Location: Diffuse Character: Reports: Dull, Throbbing, Pressure, Migraine Aggravating: Reports: Bright lights Alleviating: Reports: None Associated Signs and Symptoms: Reports: Nausea. Denies: Dizziness, Seizure, Vomiting, Sinus pressure, Fever, Neck pain, Neck stiffness, Decreased LOC, Visual changes Related History: Reports: Similar episode. Denies: Recent trauma, Remote trauma Related Surgical History: Reports: None SAH Risk Factors: Reports: Smoking Meningitis Risk Factors: Reports: None Temporal Arteritis Risk Factors: Reports: Female, Normal Head CT Within Last 12 Months: Yes Fundoscopic Exam: Present: Normal Findings Papilledema Present: No Temporal Artery Tenderness: Present: None Sinus Tenderness: Present: None TMJ Tenderness: Present: None Glascow Coma Scale (see protocol): 15 Meningeal Signs Positive: No Pain on Passive Flexion-Positive Kernig's: No ROM Limited In: No Limitiations Focal Weakness: Present: None Focal Sensory Loss: Present: None Gait: Normal Nystagmus Present: No Gag Reflex Present: Yes [id number]: Normal Findings Romberg Test Positive: No Babinski Sign: Negative Right, Negative Left Heel to Toe Normal: Yes Differential Diagnoses: Migraine Review of Systems - Review Of Systems Constitutional: Reports: No symptoms Eyes: Reports: No symptoms Ears, Nose, Mouth, Throat: Reports: No symptoms Respiratory: Reports: No symptoms Cardiac: Reports: No symptoms GI: Reports: Nausea, Poor appetite. Denies: Abdominal pain, Vomiting : Reports: No symptoms Musculoskeletal: Reports: No symptoms Skin: Reports: No symptoms Neurological: Reports: Headache Endocrine: Reports: No symptoms Hematologic/Lymphatic: Reports: No symptoms All Other Systems: Reviewed and Negative Past Medical History - Past Medical History Previously Healthy: No Endocrine: Reports: DM 1 Cardiovascular: Reports: None Respiratory: Reports: None Hematological: Reports: None Gastrointestinal: Reports: None Genitourinary: Reports: None Neuro/Psych: Reports: Migraine, Anxiety, Depression Musculoskeletal: Reports: None Cancer: Reports: None Other Pertinent Past Medical History: LOW VIT D - Surgical History General Surgical History: Reports: Tubal ligation, (LT OVARY REMOVED) , Appendectomy, Cholecystectomy, Tonsillectomy, Adenoidectomy, Orthopedic (LEFT KNEE SURGERY), Other (EAR TUBES-ORAL SURG-LEFT BREAST TUMOR REMOVED). Denies: Hysterectomy (LT OVARY REMOVED) - Family History Family History: Reports: None - Social History Smoking Status: Current every day smoker, Heavy tobacco smoker Hx Substance Use: No Alcohol Screening: None Lives: With family Physical Exam - Physical Exam Appearance: Well-appearing, No pain distress, Well-nourished Pain Distress: Moderate Eyes: LEVI ENT: Ears normal, Nose normal, Oropharynx normal Neck: Supple Respiratory: Airway patent, Breath sounds clear, Breath sounds equal, Respirations nonlabored Cardiovascular: RRR, Pulses normal, No rub, No murmur GI/: Soft Musculoskeletal: Normal strength, ROM intact, No edema, No calf tenderness Skin: Warm, Dry, Normal color Neurological: Sensation intact, Motor intact, Reflexes intact, Cranial nerves intact, Alert, Oriented Psychiatric: Affect appropriate, Mood appropriate Re-Evaluation - Re-Evaluation Time of Re-Evaluation: 20:00 Status: Improved Vital Signs Stable: Yes Pain Level: 1 Appearance: NAD Lungs: Clear Skin: Warm and Dry Neuro: Alert and Oriented X3 CV: RRR Critical Care Note - Critical Care Note Total Time (mins): 0 Departure - Departure Time of Disposition: 19:32 Disposition: HOME SELF-CARE Discharge Problem: Migraine headache Qualifiers: Migraine type: unspecified Status migrainosus presence: without status migrainosus Intractability: not intractable Qualifier Code: (G43.909) Migraine, unspecified, not intractable, without status migrainosus Instructions: Migraine Headache (ED) Condition: Good Pt referred to PMD for follow-up: Yes Additional Instructions: f/u pcp Allergies/Adverse Reactions: Allergies Sulfa (Sulfonamide Antibiotics) Allergy (Intermediate, Verified 03/27/17 19:36) Hives latex Adverse Reaction (Intermediate, Verified 03/27/17 19:36) Rash Home Medications: Ambulatory Orders Subcutaneous Insulin Pump [Insulin Pump] 1 each MC DIRECTED 06/27/13 Norgestimate-Ethinyl Estradiol [Mononessa 28 Tablet] 1 each PO DAILY 05/24/15 Sumatriptan Succinate [Imitrex] 100 mg PO BID PRN 01/12/16 Tizanidine HCl [Zanaflex] 4 mg PO BID 01/12/16 Buspirone HCl 10 mg PO TID 08/07/16 Citalopram Hydrobromide [Celexa] 10 mg PO BEDTIME #30 08/27/16 Clonazepam [Klonopin] 0.5 mg PO QID #120 08/27/16 Dextroamphetamine/Amphetamine [Adderall 10 mg Tablet] 5 mg PO BID 10/05/16 Amlodipine Besylate [Norvasc] 2.5 mg PO DAILY 10/16/16 Trazodone HCl 150 mg PO BEDTIME PRN #1 tablet 01/04/17 Disposition Discussed With: Patient
[2017-03-27 19:36] VITALS: BMI 24.5
[2017-03-27] MEDS: PHENERGAN 25 MG/ML VIAL IM STA (19:49)
[2017-03-27] MEDS: DILAUDID 2 MG/ML SYRINGE IM STA (19:49)
[2017-03-27 20:14] VITALS: BP 107/70; TEMP 99.3
== END 2017-03-27 20:11 | disposition home or self-care (01) ==
LOC: ED 19:28
DX: G43.909 Migraine, unspecified, not intractable, without status migrainosus (principal); F17.200 Nicotine dependence, unspecified, uncomplicated
CPT/HCPCS: 96372; 99283

== ENCOUNTER 2017-04-04 19:36 | Emergency (ER) ==
[2017-04-04 19:36] VITALS: BMI 24.5
[2017-04-04 19:43] VITALS: BP 129/82; TEMP 97.7
[2017-04-04] MEDS ORDERED: PHENERGAN 25 MG/ML VIAL IM STA (19:44)
[2017-04-04] MEDS ORDERED: DILAUDID 2 MG/ML SYRINGE IM STA (19:44)
[2017-04-04] MEDS ORDERED: TORADOL IM STA (19:44)
--- NOTE | 2017-04-04 19:52 | ED.PDOC ---
General ED Provider: Dr. 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--i lost my job at [employer] today and i think that triggered the jones Time Seen by Physician: 19:40 Mode of Arrival: Walk-In Information Source: Patient Exam Limitations: No limitations Primary Care Provider: ZORAN PLASCENCIA Nursing and Triage Documentation Reviewed and Agree: Yes Neurological Complaint Exam - Headache Complaint/Exam Onset: Gradual Duration: several hours Symptoms Are: Still present Timing: Constant Episodes Lasting: Hours Worst Headache Ever: No Initial Severity: Mild Current Severity: Moderate Location: Diffuse, Left Character: Reports: Dull, Pressure, Typical headache, Migraine Aggravating: Reports: Bright lights Alleviating: Reports: None Associated Signs and Symptoms: Reports: Nausea. Denies: Dizziness, Seizure, Vomiting, Sinus pressure, Fever, Neck pain, Neck stiffness, Decreased LOC, Visual changes Related History: Reports: Similar episode Related Surgical History: Reports: None SAH Risk Factors: Reports: None Meningitis Risk Factors: Reports: None SDH Risk Factors: Reports: None Temporal Arteritis Risk Factors: Reports: Female, Normal Head CT Within Last 12 Months: Yes Fundoscopic Exam: Present: Normal Findings Papilledema Present: No Temporal Artery Tenderness: Present: None Sinus Tenderness: Present: None TMJ Tenderness: Present: None Glascow Coma Scale (see protocol): 15 Meningeal Signs Positive: No Pain on Passive Flexion-Positive Kernig's: No ROM Limited In: No Limitiations Focal Weakness: Present: None Focal Sensory Loss: Present: None Gait: Normal Nystagmus Present: No Gag Reflex Present: Yes [id number]: Normal Findings Romberg Test Positive: No Babinski Sign: Negative Right, Negative Left Heel to Toe Normal: Yes Differential Diagnoses: Migraine Review of Systems - Review Of Systems Constitutional: Reports: No symptoms Eyes: Reports: No symptoms Ears, Nose, Mouth, Throat: Reports: No symptoms Respiratory: Reports: No symptoms Cardiac: Reports: No symptoms GI: Reports: Nausea : Reports: No symptoms Musculoskeletal: Reports: No symptoms Skin: Reports: No symptoms Neurological: Reports: Headache Endocrine: Reports: No symptoms Hematologic/Lymphatic: Reports: No symptoms All Other Systems: Reviewed and Negative Past Medical History - Past Medical History Previously Healthy: No Endocrine: Reports: DM 1 Cardiovascular: Reports: None Respiratory: Reports: None Hematological: Reports: None Gastrointestinal: Reports: None Genitourinary: Reports: None Neuro/Psych: Reports: Migraine, Anxiety, Depression Musculoskeletal: Reports: None Cancer: Reports: None Last Menstrual Period: 6 Other Pertinent Past Medical History: LOW VIT D - Surgical History General Surgical History: Reports: Tubal ligation, (LT OVARY REMOVED) , Appendectomy, Cholecystectomy, Tonsillectomy, Adenoidectomy, Orthopedic (LEFT KNEE SURGERY), Other (EAR TUBES-ORAL SURG-LEFT BREAST TUMOR REMOVED). Denies: Hysterectomy (LT OVARY REMOVED) - Family History Family History: Reports: None - Social History Smoking Status: Current every day smoker, Heavy tobacco smoker Hx Substance Use: No Alcohol Screening: None Lives: With family Physical Exam - Physical Exam Appearance: Well-appearing Eyes: LEVI, EOMI, Conjunctiva clear ENT: Ears normal, Nose normal, Oropharynx normal Neck: Supple Respiratory: Airway patent Cardiovascular: RRR GI/: Soft Musculoskeletal: Normal strength, ROM intact, No edema, No calf tenderness Skin: Warm, Dry, Normal color Neurological: Sensation intact Psychiatric: Affect appropriate, Mood appropriate Re-Evaluation - Re-Evaluation Time of Re-Evaluation: 20:15 Status: Improved Vital Signs Stable: Yes Pain Level: 1 Appearance: NAD Lungs: Clear Skin: Warm and Dry Neuro: Alert and Oriented X3 CV: RRR Critical Care Note - Critical Care Note Total Time (mins): 0 Course - Course Orders, Labs, Meds: Orders Category Date Time Status Hydromorphone HCl/Pf [Dilaudid 2 mg/ml Syringe] MEDS 04/04/17 19:44 Discontinued 2 mg IM ONCE STA Ketorolac Tromethamine [Toradol] MEDS 04/04/17 19:44 Discontinued 60 mg IM ONCE STA Promethazine HCl [Phenergan 25 mg/ml Vial] MEDS 04/04/17 19:44 Discontinued 25 mg IM ONCE STA Medications Discontinued Medications Generic Name Dose Route Start Last Admin Trade Name Freq PRN Reason Stop Dose Admin Hydromorphone HCl 2 mg 04/04/17 19:44 Dilaudid 2 Mg/Ml Syringe IM 04/04/17 19:45 ONCE STA Ketorolac Tromethamine 60 mg 04/04/17 19:44 Toradol IM 04/04/17 19:45 ONCE STA Promethazine HCl 25 mg 04/04/17 19:44 Phenergan 25 Mg/Ml Vial IM 04/04/17 19:45 ONCE STA the patient has a long hx of migraine jones and this jones is the same--no more severe or frequent) Vital Signs: Temp Pulse Resp BP Pulse Ox 04/04/17 19:37 97.7 F 87 18 129/82 95 Departure - Departure Time of Disposition: 19:52 Disposition: HOME SELF-CARE Discharge Problem: Migraine headache Qualifiers: Migraine type: unspecified Status migrainosus presence: without status migrainosus Intractability: not intractable Qualifier Code: (G43.909) Migraine, unspecified, not intractable, without status migrainosus Instructions: Migraine Headache (ED) Condition: Good Pt referred to PMD for follow-up: Yes Allergies/Adverse Reactions: Allergies Sulfa (Sulfonamide Antibiotics) Allergy (Intermediate, Verified 03/27/17 19:36) Hives latex Adverse Reaction (Intermediate, Verified 03/27/17 19:36) Rash Home Medications: Ambulatory Orders Subcutaneous Insulin Pump [Insulin Pump] 1 each MC DIRECTED 06/27/13 Norgestimate-Ethinyl Estradiol [Mononessa 28 Tablet] 1 each PO DAILY 05/24/15 Sumatriptan Succinate [Imitrex] 100 mg PO BID PRN 01/12/16 Tizanidine HCl [Zanaflex] 4 mg PO BID 01/12/16 Buspirone HCl 10 mg PO TID 08/07/16 Citalopram Hydrobromide [Celexa] 10 mg PO BEDTIME #30 08/27/16 Clonazepam [Klonopin] 0.5 mg PO QID #120 08/27/16 Dextroamphetamine/Amphetamine [Adderall 10 mg Tablet] 5 mg PO BID 10/05/16 Amlodipine Besylate [Norvasc] 2.5 mg PO DAILY 10/16/16 Trazodone HCl 150 mg PO BEDTIME PRN #1 tablet 01/04/17 Disposition Discussed With: Patient
== END 2017-04-04 20:25 | disposition home or self-care (01) ==
LOC: ED 19:36
DX: G43.909 Migraine, unspecified, not intractable, without status migrainosus (principal); F17.210 Nicotine dependence, cigarettes, uncomplicated
CPT/HCPCS: 96372; 99283

== ENCOUNTER 2017-04-06 22:33 | Emergency (ER) ==
[2017-04-06 22:34] VITALS: BMI 24.5
[2017-04-06 22:43] VITALS: BP 110/70; TEMP 99
--- NOTE | 2017-04-06 22:45 | ED.PDOC ---
General ED Provider: Dr. JERI DIEHL Chief Complaint: Non-specific Complaint Stated Complaint: c/o on one day history of right sided pelvic/flank pain radiating to the back. constant, sharp pain worse with movement. States that she has [employer]POR[employer] appt scheduled with Dr. Lucas in approx 1 month from now. Also c/o Nausea. Time Seen by Physician: 22:44 Mode of Arrival: Walk-In Information Source: Patient Exam Limitations: No limitations Primary Care Provider: ZORAN PLASCENCIA Nursing and Triage Documentation Reviewed and Agree: Yes GI Complaint Exam - Abdominal Pain Complaint/Exam Onset: Gradual Duration: 1 day Symptoms Are: Still present Timing: Constant Initial Severity: Moderate Current Severity: Moderate Location of Pain: RLQ Radiates To: Reports: Back Character: Reports: Aching, Throbbing Aggravating: Reports: None Alleviating: Reports: None Associated Signs and Symptoms: Denies: Diaphoresis, Fever, Cough, Chest pain, Dizziness, Back pain, Constipation, Blood in stool, Dysuria, Urinary frequency, Decreased urine output, Decreased appetite, Vaginal bleeding, Vaginal discharge , Nausea, Vomiting, Diarrhea, Sore throat, Decreased activity AAA Risk Factors: Reports: None Cardiac Risk Factors: Reports: None Ectopic Risk Factors: Reports: None Ovarian Torsion Risk Factors: Reports: Ovarian cysts Surgical Obstruction Risk Factors: Reports: Prior abdominal surgery Related Surgical History: Reports: Cholecystectomy, Appendectomy Patient Rh Status: Unknown Abdominal Findings: Absent: Pulsatile mass, Abdominal distention, Unequal femoral pulses, Rebound tenderness, Peritoneal signs, McBurney's Point tender, CVA Tenderness, Hernia, Inguinal swelling Differential Diagnoses: Bowel Obstruction, Ureteral Stone, UTI, Ovarian Cyst Review of Systems - Review Of Systems Constitutional: Reports: No symptoms Eyes: Reports: No symptoms Ears, Nose, Mouth, Throat: Reports: No symptoms Respiratory: Reports: No symptoms Cardiac: Reports: No symptoms GI: Reports: Abdominal pain, Nausea : Reports: No symptoms Musculoskeletal: Reports: Back pain Skin: Reports: No symptoms Neurological: Reports: No symptoms Endocrine: Reports: No symptoms Hematologic/Lymphatic: Reports: No symptoms All Other Systems: Reviewed and Negative Past Medical History - Past Medical History Previously Healthy: No Endocrine: Reports: DM 1 Cardiovascular: Reports: None Respiratory: Reports: None Hematological: Reports: None Gastrointestinal: Reports: None Genitourinary: Reports: None Neuro/Psych: Reports: Migraine, Anxiety, Depression Musculoskeletal: Reports: None Cancer: Reports: None Last Menstrual Period: now Other Pertinent Past Medical History: LOW VIT D - Surgical History General Surgical History: Reports: Tubal ligation, (LT OVARY REMOVED) , Appendectomy, Cholecystectomy, Tonsillectomy, Adenoidectomy, Orthopedic (LEFT KNEE SURGERY), Other (EAR TUBES-ORAL SURG-LEFT BREAST TUMOR REMOVED). Denies: Hysterectomy (LT OVARY REMOVED) - Family History Family History: Reports: None - Social History Smoking Status: Current every day smoker, Heavy tobacco smoker Hx Substance Use: No Alcohol Screening: None - Immunizations Tetanus Shot up to Date: Yes Physical Exam - Physical Exam Appearance: Ill-appearing, No pain distress, Well-nourished Pain Distress: Moderate Eyes: LEVI, EOMI, Conjunctiva clear ENT: Ears normal, Nose normal, Oropharynx normal Respiratory: Airway patent, Breath sounds clear, Breath sounds equal, Respirations nonlabored Cardiovascular: RRR, Pulses normal, No rub, No murmur GI/: Soft, Tender (MIld on the right lower quadrant. No rebound ) Musculoskeletal: Normal strength, ROM intact, No edema, No calf tenderness Skin: Warm, Dry, Normal color Neurological: Sensation intact, Motor intact, Reflexes intact, Cranial nerves intact, Alert, Oriented Psychiatric: Affect appropriate, Mood appropriate Interpretation - Radiology Interpretation Radiology Interpretation By: Radiologist Radiology Results: No acute changes Exam Interpreted: CT Scan Critical Care Note - Critical Care Note Total Time (mins): 0 Course - Course Orders, Labs, Meds: Lab Review 04/06/17 22:55 Urine Color Yellow Urine Clarity Slightly Urine pH 8.5 Ur Specific [place] 1.015 Urine Protein Trace Urine Glucose (UA) Negative Urine Ketones Negative Urine Blood Negative Urine Nitrite Negative Urine Bilirubin Negative Urine Urobilinogen 0.2 Ur Leukocyte Esterase Negative Ur Squamous Epith Cells 2-5 Amorphous Sediment 2+ Urine Bacteria 1+ Urine Test Negative Urine Opiates Screen Negative Ur Oxycodone Screen Negative Urine Methadone Screen Negative Ur Propoxyphene Screen Negative Ur Barbiturates Screen Negative U Tricyclic Antidepress Negative Ur Phencyclidine Scrn Negative Ur Amphetamine Screen Negative U Methamphetamines Scrn Negative U Benzodiazepines Scrn Negative Urine Cocaine Screen Negative U Cannabinoids Screen Negative Orders Category Date Time Status URINALYSIS C & S IF INDICATED Stat LAB 04/06/17 22:55 Completed URINE CULTURE Stat LAB 06/06/17 23:08 Received URINE DRUG SCREEN (RAPID FOR ED) [DRUG SCREEN, URINE, LAB 04/06/17 22:55 Completed RAPID] Stat URINE Stat LAB 04/06/17 22:55 Completed Ketorolac Tromethamine [Toradol] MEDS 04/06/17 22:48 Discontinued 60 mg IM ONCE STA CT ABD/PEL WO RENAL STONE PROT Stat RADS 04/06/17 23:10 Completed Medications Discontinued Medications Generic Name Dose Route Start Last Admin Trade Name Linsey PRN Reason Stop Dose Admin Ketorolac Tromethamine 60 mg 04/06/17 22:48 04/06/17 23:39 Toradol IM 04/06/17 22:49 60 mg ONCE STA Administration Vital Signs: Temp Pulse Resp BP Pulse Ox 04/06/17 22:34 99 F 85 20 110/70 98 Departure - Departure Time of Disposition: 00:17 Disposition: HOME SELF-CARE Discharge Problem: Ovarian cyst Instructions: Ovarian Cyst (ED) Condition: Fair Pt referred to PMD for follow-up: Yes Additional Instructions: take motrin as needed for pain Keep Apt with OBGYN Prescriptions: Ibuprofen 800 mg PO TID #30 tablet Allergies/Adverse Reactions: Allergies Sulfa (Sulfonamide Antibiotics) Allergy (Intermediate, Verified 04/06/17 22:43) Hives latex Adverse Reaction (Intermediate, Verified 04/06/17 22:43) Rash Home Medications: Ambulatory Orders Subcutaneous Insulin Pump [Insulin Pump] 1 each MC DIRECTED 06/27/13 Norgestimate-Ethinyl Estradiol [Mononessa 28 Tablet] 1 each PO DAILY 05/24/15 Sumatriptan Succinate [Imitrex] 100 mg PO BID PRN 01/12/16 Tizanidine HCl [Zanaflex] 4 mg PO BID 01/12/16 Buspirone HCl 10 mg PO TID 08/07/16 Citalopram Hydrobromide [Celexa] 10 mg PO BEDTIME #30 08/27/16 Clonazepam [Klonopin] 0.5 mg PO QID #120 08/27/16 Dextroamphetamine/Amphetamine [Adderall 10 mg Tablet] 5 mg PO BID 10/05/16 Amlodipine Besylate [Norvasc] 2.5 mg PO DAILY 10/16/16 Trazodone HCl 150 mg PO BEDTIME PRN #1 tablet 01/04/17 Ibuprofen 800 mg PO TID #30 tablet 04/07/17 Disposition Discussed With: Patient
[2017-04-06] MEDS ORDERED: TORADOL IM STA (22:48)
[2017-04-06 23:02] LABS: BILIRUBIN,URINE Negative (NEGATIVE); KETONES,URINE Negative (NEGATIVE); LEUKOCYTE ESTERASE ,URINE Negative (NEGATIVE); NITRITE,URINE Negative (NEGATIVE); PH,URINE 8.5 (5-9); PROTEIN,URINE Trace (NEGATIVE); URINE PREGNANCY INTERNAL QC INTERNAL QC VALID; URINE, BLOOD Negative (NEGATIVE)
[2017-04-06 23:07] LABS: ADD URINE MICROSCOPIC YES
[2017-04-06 23:08] LABS: BACTERIA,URINE 1+ (NOT PRESENT)
[2017-04-06 23:31] LABS: COCAIN SCREEN,URINE NEGATIVE (NEGATIVE)
--- NOTE | 2017-04-06 23:59 | CT ---
EXAM: CT scan abdomen pelvis without contrast HISTORY: Right-sided pain COMPARISON: CT scan abdomen pelvis 03/07/2017 FINDINGS: Contiguous axial images obtained from lung bases to the symphysis pubis without contrast utilizing 3-mm collimation. Sagittal and coronal reconstructions were imaged and reviewed. The vis ualized lung bases are clear. There has been prior cholecystectomy. The liver, pancreas, spleen an d adrenal glands have normal unenhanced CT appearance.. Numerous small nonobstructive renal calculi are noted bilaterally.. There is a tampon artifact. There is trace amount free fluid in the depend ent pelvis. There has been prior appendectomy. There is a stable appearing right adnexal cyst measur ing 5.4 x 4.0 cm. IMPRESSION: Nonobstructive bilateral nephrolithiasis. Prior cholecystectomy and appendectomy. Trace amount free fluid with right adnexal cyst.
== END 2017-04-07 00:20 | disposition home or self-care (01) ==
LOC: ED 22:33
DX: N83.201 Unspecified ovarian cyst, right side (principal); F17.210 Nicotine dependence, cigarettes, uncomplicated; Z79.899 Other long term (current) drug therapy
CPT/HCPCS: 74176; 80306; 81001; 81025; 87086; 96372; 99283

== ENCOUNTER 2017-04-11 19:47 | Emergency (ER) ==
[2017-04-11 19:48] VITALS: BMI 24.5
[2017-04-11 19:53] VITALS: BP 139/80; TEMP 97.1
[2017-04-11] MEDS ORDERED: DILAUDID 2 MG/ML SYRINGE IM STA (19:55)
[2017-04-11] MEDS ORDERED: PHENERGAN 25 MG/ML VIAL IM STA (19:55)
--- NOTE | 2017-04-11 19:58 | ED.PDOC ---
General ED Provider: Dr. VIRAL LARRY-ER Chief Complaint: Headache Stated Complaint: hunter got a bad migraine jones--i ran out of my norco yesterday and cant get it filled till tomorrow Time Seen by Physician: 19:56 Mode of Arrival: Walk-In Information Source: Patient Exam Limitations: No limitations Primary Care Provider: ZORAN STEELE Nursing and Triage Documentation Reviewed and Agree: Yes Neurological Complaint Exam - Headache Complaint/Exam Onset: Gradual Duration: several hours Symptoms Are: Still present Timing: Constant Worst Headache Ever: No Initial Severity: Mild Current Severity: Moderate Location: Diffuse Character: Reports: Dull, Throbbing, Pressure, Typical headache, Migraine Aggravating: Reports: Bright lights Alleviating: Reports: None Associated Signs and Symptoms: Reports: Nausea, Vomiting. Denies: Dizziness, Seizure, Sinus pressure, Fever, Neck pain, Neck stiffness, Decreased LOC, Visual changes Related History: Reports: Similar episode Related Surgical History: Reports: None SAH Risk Factors: Reports: None Meningitis Risk Factors: Reports: None SDH Risk Factors: Reports: None Temporal Arteritis Risk Factors: Reports: Female, Normal Head CT Within Last 12 Months: Yes Fundoscopic Exam: Present: Normal Findings Papilledema Present: No Temporal Artery Tenderness: Present: None Sinus Tenderness: Present: None TMJ Tenderness: Present: None Glascow Coma Scale (see protocol): 15 Meningeal Signs Positive: No Pain on Passive Flexion-Positive Kernig's: No ROM Limited In: No Limitiations Focal Weakness: Present: None Focal Sensory Loss: Present: None Gait: Normal Nystagmus Present: No Gag Reflex Present: Yes [id number]: Normal Findings Romberg Test Positive: No Babinski Sign: Negative Right, Negative Left Heel to Toe Normal: Yes Differential Diagnoses: Migraine Review of Systems - Review Of Systems Constitutional: Reports: No symptoms Eyes: Reports: No symptoms Ears, Nose, Mouth, Throat: Reports: No symptoms Respiratory: Reports: No symptoms Cardiac: Reports: No symptoms GI: Reports: Nausea, Vomiting : Reports: No symptoms Musculoskeletal: Reports: No symptoms Skin: Reports: No symptoms Neurological: Reports: Headache Endocrine: Reports: No symptoms Hematologic/Lymphatic: Reports: No symptoms All Other Systems: Reviewed and Negative Past Medical History - Past Medical History Previously Healthy: No Endocrine: Reports: DM 1 Cardiovascular: Reports: None Respiratory: Reports: None Hematological: Reports: None Gastrointestinal: Reports: None Genitourinary: Reports: None Neuro/Psych: Reports: Migraine, Anxiety, Depression Musculoskeletal: Reports: None Cancer: Reports: None Last Menstrual Period: 1 week ago Other Pertinent Past Medical History: LOW VIT D - Surgical History General Surgical History: Reports: Tubal ligation, (LT OVARY REMOVED) , Appendectomy, Cholecystectomy, Tonsillectomy, Adenoidectomy, Orthopedic (LEFT KNEE SURGERY), Other (EAR TUBES-ORAL SURG-LEFT BREAST TUMOR REMOVED). Denies: Hysterectomy (LT OVARY REMOVED) - Family History Family History: Reports: None - Social History Smoking Status: Current every day smoker, Heavy tobacco smoker Hx Substance Use: No Alcohol Screening: None - Immunizations Tetanus Shot up to Date: Yes Physical Exam - Physical Exam Appearance: Well-appearing, No pain distress, Well-nourished Eyes: LEVI, EOMI, Conjunctiva clear ENT: Ears normal, Nose normal, Oropharynx normal Neck: Supple Respiratory: Airway patent, Breath sounds clear, Breath sounds equal, Respirations nonlabored Cardiovascular: RRR GI/: Soft, Nontender, No masses, Bowel sounds normal, No Organomegaly Musculoskeletal: Normal strength, ROM intact, No edema, No calf tenderness Skin: Warm, Dry, Normal color Neurological: Sensation intact, Motor intact, Reflexes intact, Cranial nerves intact, Alert, Oriented Psychiatric: Affect appropriate, Mood appropriate Re-Evaluation - Re-Evaluation Time of Re-Evaluation: 20:20 Status: Improved Vital Signs Stable: Yes Pain Level: 1 Appearance: NAD Lungs: Clear Skin: Warm and Dry Neuro: Alert and Oriented X3 CV: RRR Critical Care Note - Critical Care Note Total Time (mins): 0 Course - Course Orders, Labs, Meds: Orders Category Date Time Status Hydromorphone HCl/Pf [Dilaudid 2 mg/ml Syringe] MEDS 04/11/17 19:55 Discontinued 2 mg IM ONCE STA Promethazine HCl [Phenergan 25 mg/ml Vial] MEDS 04/11/17 19:55 Discontinued 25 mg IM ONCE STA Medications Discontinued Medications Generic Name Dose Route Start Last Admin Trade Name Freq PRN Reason Stop Dose Admin Hydromorphone HCl 2 mg 04/11/17 19:55 Dilaudid 2 Mg/Ml Syringe IM 04/11/17 19:56 ONCE STA Promethazine HCl 25 mg 04/11/17 19:55 Phenergan 25 Mg/Ml Vial IM 04/11/17 19:56 ONCE STA Vital Signs: Temp Pulse Resp BP Pulse Ox 04/11/17 19:48 97.1 F L 89 20 139/80 96 Departure - Departure Time of Disposition: 19:58 Disposition: HOME SELF-CARE Discharge Problem: Migraine headache Qualifiers: Migraine type: unspecified Status migrainosus presence: without status migrainosus Intractability: not intractable Qualifier Code: (G43.909) Migraine, unspecified, not intractable, without status migrainosus Instructions: Migraine Headache (ED) Condition: Good Pt referred to PMD for follow-up: Yes Additional Instructions: f/u with neurologist and dr steele Allergies/Adverse Reactions: Allergies Sulfa (Sulfonamide Antibiotics) Allergy (Intermediate, Verified 04/11/17 19:53) Hives latex Adverse Reaction (Intermediate, Verified 04/11/17 19:53) Rash Home Medications: Ambulatory Orders Subcutaneous Insulin Pump [Insulin Pump] 1 each MC DIRECTED 06/27/13 Norgestimate-Ethinyl Estradiol [Mononessa 28 Tablet] 1 each PO DAILY 05/24/15 Sumatriptan Succinate [Imitrex] 100 mg PO BID PRN 01/12/16 Tizanidine HCl [Zanaflex] 4 mg PO BID 01/12/16 Buspirone HCl 10 mg PO TID 08/07/16 Citalopram Hydrobromide [Celexa] 10 mg PO BEDTIME #30 08/27/16 Clonazepam [Klonopin] 0.5 mg PO QID #120 08/27/16 Dextroamphetamine/Amphetamine [Adderall 10 mg Tablet] 5 mg PO BID 10/05/16 Amlodipine Besylate [Norvasc] 2.5 mg PO DAILY 10/16/16 Trazodone HCl 150 mg PO BEDTIME PRN #1 tablet 01/04/17 Ibuprofen 800 mg PO TID #30 tablet 04/07/17 Disposition Discussed With: Patient
== END 2017-04-11 20:30 | disposition home or self-care (01) ==
LOC: ED 19:47
DX: G43.909 Migraine, unspecified, not intractable, without status migrainosus (principal); F17.210 Nicotine dependence, cigarettes, uncomplicated
CPT/HCPCS: 96372; 99284

== ENCOUNTER 2017-04-25 19:35 | Emergency (ER) ==
[2017-04-25 19:35] VITALS: BMI 24.5
[2017-04-25] MEDS ORDERED: PHENERGAN 25 MG/ML VIAL IM STA (19:38)
[2017-04-25] MEDS ORDERED: DILAUDID 2 MG/ML SYRINGE IM STA (19:38)
--- NOTE | 2017-04-25 19:43 | ED.PDOC ---
General ED Provider: Dr. 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--i was outside all yesterday and i think the sun did it Time Seen by Physician: 19:40 Mode of Arrival: Walk-In Information Source: Patient Primary Care Provider: ZORNA PLASCENCIA Nursing and Triage Documentation Reviewed and Agree: Yes Neurological Complaint Exam - Headache Complaint/Exam Onset: Gradual Duration: 24hrs Symptoms Are: Still present Timing: Constant Worst Headache Ever: No Initial Severity: Mild Current Severity: Moderate Location: Diffuse Character: Reports: Throbbing, Pressure, Typical headache, Migraine Aggravating: Reports: Bright lights Alleviating: Reports: None Associated Signs and Symptoms: Reports: Nausea, Vomiting. Denies: Dizziness, Seizure Related History: Reports: Similar episode Related Surgical History: Reports: None SAH Risk Factors: Reports: None Meningitis Risk Factors: Reports: None SDH Risk Factors: Reports: None Temporal Arteritis Risk Factors: Reports: Female, Normal Head CT Within Last 12 Months: Yes Fundoscopic Exam: Present: Normal Findings Papilledema Present: No Temporal Artery Tenderness: Present: None Sinus Tenderness: Present: None TMJ Tenderness: Present: None Glascow Coma Scale (see protocol): 15 Meningeal Signs Positive: No Pain on Passive Flexion-Positive Kernig's: No ROM Limited In: No Limitiations Focal Weakness: Present: None Focal Sensory Loss: Present: None Gait: Normal Nystagmus Present: No Gag Reflex Present: No [id number]: Normal Findings Romberg Test Positive: No Babinski Sign: Negative Right, Negative Left Heel to Toe Normal: No Differential Diagnoses: Migraine Review of Systems - Review Of Systems Constitutional: Reports: No symptoms Eyes: Reports: No symptoms Ears, Nose, Mouth, Throat: Reports: No symptoms Respiratory: Reports: No symptoms Cardiac: Reports: No symptoms GI: Reports: Nausea, Vomiting : Reports: No symptoms Musculoskeletal: Reports: No symptoms Skin: Reports: No symptoms Neurological: Reports: No symptoms Endocrine: Reports: No symptoms Hematologic/Lymphatic: Reports: No symptoms All Other Systems: Reviewed and Negative Past Medical History - Past Medical History Previously Healthy: No Endocrine: Reports: DM 1 Cardiovascular: Reports: None Respiratory: Reports: None Hematological: Reports: None Gastrointestinal: Reports: None Genitourinary: Reports: None Neuro/Psych: Reports: Migraine, Anxiety, Depression Musculoskeletal: Reports: None Cancer: Reports: None Other Pertinent Past Medical History: LOW VIT D - Surgical History General Surgical History: Reports: Tubal ligation, (LT OVARY REMOVED) , Appendectomy, Cholecystectomy, Tonsillectomy, Adenoidectomy, Orthopedic (LEFT KNEE SURGERY), Other (EAR TUBES-ORAL SURG-LEFT BREAST TUMOR REMOVED). Denies: Hysterectomy (LT OVARY REMOVED) - Family History Family History: Reports: None - Social History Smoking Status: Current every day smoker, Heavy tobacco smoker Hx Substance Use: No Alcohol Screening: None Lives: With family Physical Exam - Physical Exam Appearance: Well-appearing Pain Distress: Moderate Eyes: LEVI, EOMI, Conjunctiva clear ENT: Ears normal, Nose normal, Oropharynx normal Neck: Supple Respiratory: Airway patent, Breath sounds clear, Breath sounds equal, Respirations nonlabored Cardiovascular: RRR, Pulses normal, No rub, No murmur GI/: Soft, Nontender, No masses, Bowel sounds normal, No Organomegaly Musculoskeletal: Normal strength, ROM intact, No edema, No calf tenderness Skin: Warm, Dry, Normal color Neurological: Sensation intact, Motor intact, Reflexes intact, Cranial nerves intact, Alert, Oriented Psychiatric: Affect appropriate, Mood appropriate Re-Evaluation - Re-Evaluation Time of Re-Evaluation: 20:00 Status: Improved Vital Signs Stable: Yes Pain Level: 1 Appearance: NAD Lungs: Clear Skin: Warm and Dry Neuro: Alert and Oriented X3 CV: RRR Critical Care Note - Critical Care Note Total Time (mins): 0 Course - Course Orders, Labs, Meds: Orders Category Date Time Status Hydromorphone HCl/Pf [Dilaudid 2 mg/ml Syringe] MEDS 04/25/17 19:38 Discontinued 2 mg IM ONCE STA Promethazine HCl [Phenergan 25 mg/ml Vial] MEDS 04/25/17 19:38 Discontinued 25 mg IM ONCE STA Medications Discontinued Medications Generic Name Dose Route Start Last Admin Trade Name Freq PRN Reason Stop Dose Admin Hydromorphone HCl 2 mg 04/25/17 19:38 Dilaudid 2 Mg/Ml Syringe IM 04/25/17 19:39 ONCE STA Promethazine HCl 25 mg 04/25/17 19:38 Phenergan 25 Mg/Ml Vial IM 04/25/17 19:39 ONCE STA Departure - Departure Time of Disposition: 19:42 Disposition: HOME SELF-CARE Discharge Problem: Migraine headache Qualifiers: Migraine type: unspecified Status migrainosus presence: without status migrainosus Intractability: not intractable Qualifier Code: (G43.909) Migraine, unspecified, not intractable, without status migrainosus Instructions: Migraine Headache (ED) Condition: Good Pt referred to PMD for follow-up: Yes Additional Instructions: f/u with pcp Allergies/Adverse Reactions: Allergies Sulfa (Sulfonamide Antibiotics) Allergy (Intermediate, Verified 04/11/17 19:53) Hives latex Adverse Reaction (Intermediate, Verified 04/11/17 19:53) Rash Home Medications: Ambulatory Orders Subcutaneous Insulin Pump [Insulin Pump] 1 each MC DIRECTED 06/27/13 Norgestimate-Ethinyl Estradiol [Mononessa 28 Tablet] 1 each PO DAILY 05/24/15 Sumatriptan Succinate [Imitrex] 100 mg PO BID PRN 01/12/16 Tizanidine HCl [Zanaflex] 4 mg PO BID 01/12/16 Buspirone HCl 10 mg PO TID 08/07/16 Citalopram Hydrobromide [Celexa] 10 mg PO BEDTIME #30 08/27/16 Clonazepam [Klonopin] 0.5 mg PO QID #120 08/27/16 Dextroamphetamine/Amphetamine [Adderall 10 mg Tablet] 5 mg PO BID 10/05/16 Amlodipine Besylate [Norvasc] 2.5 mg PO DAILY 10/16/16 Trazodone HCl 150 mg PO BEDTIME PRN #1 tablet 01/04/17 Ibuprofen 800 mg PO TID #30 tablet 04/07/17 Disposition Discussed With: Patient
[2017-04-25 19:51] VITALS: BP 153/83; TEMP 99
== END 2017-04-25 20:20 | disposition home or self-care (01) ==
LOC: ED 19:35
DX: G43.909 Migraine, unspecified, not intractable, without status migrainosus (principal); F17.210 Nicotine dependence, cigarettes, uncomplicated; Z79.899 Other long term (current) drug therapy
CPT/HCPCS: 96372; 99283

== ENCOUNTER 2017-05-09 20:38 | Emergency (ER) ==
[2017-05-09 20:38] VITALS: BMI 24.5
[2017-05-09] MEDS ORDERED: DILAUDID 1 MG/ML SYRINGE IM STA (20:41)
[2017-05-09] MEDS ORDERED: PHENERGAN 25 MG/ML VIAL IM STA (20:41)
--- NOTE | 2017-05-09 20:45 | ED.PDOC ---
General ED Provider: Dr. 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--the air fresheners were changed and i think that started it--my blood sugars are ok Time Seen by Physician: 20:42 Mode of Arrival: Walk-In Information Source: Patient Exam Limitations: No limitations Primary Care Provider: ZORAN STEELE Nursing and Triage Documentation Reviewed and Agree: Yes Neurological Complaint Exam - Headache Complaint/Exam Onset: Gradual Duration: several hours Symptoms Are: Still present Timing: Constant Episodes Lasting: Hours Worst Headache Ever: No Initial Severity: Mild Current Severity: Moderate Location: Diffuse Character: Reports: Dull, Throbbing, Typical headache, Migraine Aggravating: Reports: Bright lights Alleviating: Reports: None Associated Signs and Symptoms: Reports: Nausea. Denies: Dizziness, Seizure, Vomiting, Sinus pressure, Fever, Neck pain, Neck stiffness, Decreased LOC, Visual changes Related History: Reports: Similar episode Related Surgical History: Reports: None SAH Risk Factors: Reports: None Meningitis Risk Factors: Reports: None SDH Risk Factors: Reports: None Temporal Arteritis Risk Factors: Reports: Female, Normal Head CT Within Last 12 Months: Yes Fundoscopic Exam: Present: Normal Findings Papilledema Present: No Temporal Artery Tenderness: Present: None Sinus Tenderness: Present: None TMJ Tenderness: Present: None Glascow Coma Scale (see protocol): 15 Meningeal Signs Positive: No Pain on Passive Flexion-Positive Kernig's: No ROM Limited In: No Limitiations Focal Weakness: Present: None Focal Sensory Loss: Present: None Gait: Normal Nystagmus Present: No Gag Reflex Present: Yes [id number]: Normal Findings Romberg Test Positive: No Babinski Sign: Negative Right, Negative Left Heel to Toe Normal: Yes Differential Diagnoses: Migraine Review of Systems - Review Of Systems Constitutional: Reports: No symptoms Eyes: Reports: No symptoms Ears, Nose, Mouth, Throat: Reports: No symptoms Respiratory: Reports: No symptoms Cardiac: Reports: No symptoms GI: Reports: Nausea : Reports: No symptoms Musculoskeletal: Reports: No symptoms Skin: Reports: No symptoms Neurological: Reports: Headache Endocrine: Reports: No symptoms Hematologic/Lymphatic: Reports: No symptoms All Other Systems: Reviewed and Negative Past Medical History - Past Medical History Previously Healthy: No Endocrine: Reports: DM 1 Cardiovascular: Reports: None Respiratory: Reports: None Hematological: Reports: None Gastrointestinal: Reports: None Genitourinary: Reports: None Neuro/Psych: Reports: Migraine, Anxiety, Depression Musculoskeletal: Reports: None Cancer: Reports: None Other Pertinent Past Medical History: LOW VIT D - Surgical History General Surgical History: Reports: Tubal ligation, (LT OVARY REMOVED) , Appendectomy, Cholecystectomy, Tonsillectomy, Adenoidectomy, Orthopedic (LEFT KNEE SURGERY), Other (EAR TUBES-ORAL SURG-LEFT BREAST TUMOR REMOVED). Denies: Hysterectomy (LT OVARY REMOVED) - Family History Family History: Reports: None - Social History Smoking Status: Current every day smoker, Heavy tobacco smoker Hx Substance Use: No Alcohol Screening: None Lives: With family Physical Exam - Physical Exam Appearance: Well-appearing, No pain distress, Well-nourished Pain Distress: Moderate Eyes: LEVI, EOMI, Conjunctiva clear ENT: Ears normal, Nose normal, Oropharynx normal Neck: Supple Respiratory: Airway patent Cardiovascular: RRR, Pulses normal, No rub, No murmur GI/: Soft, Nontender, No masses, Bowel sounds normal, No Organomegaly Musculoskeletal: Normal strength, ROM intact, No edema, No calf tenderness Skin: Warm, Dry, Normal color Neurological: Sensation intact, Motor intact, Reflexes intact, Cranial nerves intact, Alert, Oriented Psychiatric: Affect appropriate, Mood appropriate Re-Evaluation - Re-Evaluation Time of Re-Evaluation: 22:10 Status: Improved Vital Signs Stable: Yes Pain Level: 1 Appearance: NAD Lungs: Clear Skin: Warm and Dry Neuro: Alert and Oriented X3 CV: RRR Critical Care Note - Critical Care Note Total Time (mins): 0 Course - Course Orders, Labs, Meds: Orders Category Date Time Status Hydromorphone HCl [Dilaudid 1 mg/ml Syringe] MEDS 05/09/17 20:41 Discontinued 1 mg IM ONCE STA Promethazine HCl [Phenergan 25 mg/ml Vial] MEDS 05/09/17 20:41 Discontinued 25 mg IM ONCE STA Medications Discontinued Medications Generic Name Dose Route Start Last Admin Trade Name Freq PRN Reason Stop Dose Admin Hydromorphone HCl 1 mg 05/09/17 20:41 Dilaudid 1 Mg/Ml Syringe IM 05/09/17 20:42 ONCE STA Promethazine HCl 25 mg 05/09/17 20:41 Phenergan 25 Mg/Ml Vial IM 05/09/17 20:42 ONCE STA Departure - Departure Time of Disposition: 20:45 Disposition: HOME SELF-CARE Discharge Problem: Migraine headache Qualifiers: Migraine type: unspecified Status migrainosus presence: without status migrainosus Intractability: not intractable Qualifier Code: (G43.909) Migraine, unspecified, not intractable, without status migrainosus Instructions: Migraine Headache (ED) Condition: Good Pt referred to PMD for follow-up: Yes Additional Instructions: f/u dr steele Allergies/Adverse Reactions: Allergies Sulfa (Sulfonamide Antibiotics) Allergy (Intermediate, Verified 04/11/17 19:53) Hives latex Adverse Reaction (Intermediate, Verified 04/11/17 19:53) Rash Home Medications: Ambulatory Orders Subcutaneous Insulin Pump [Insulin Pump] 1 each MC DIRECTED 06/27/13 Norgestimate-Ethinyl Estradiol [Mononessa 28 Tablet] 1 each PO DAILY 05/24/15 Sumatriptan Succinate [Imitrex] 100 mg PO BID PRN 01/12/16 Tizanidine HCl [Zanaflex] 4 mg PO BID 01/12/16 Buspirone HCl 10 mg PO TID 08/07/16 Citalopram Hydrobromide [Celexa] 10 mg PO BEDTIME #30 08/27/16 Clonazepam [Klonopin] 0.5 mg PO QID #120 08/27/16 Dextroamphetamine/Amphetamine [Adderall 10 mg Tablet] 5 mg PO BID 10/05/16 Amlodipine Besylate [Norvasc] 2.5 mg PO DAILY 10/16/16 Trazodone HCl 150 mg PO BEDTIME PRN #1 tablet 01/04/17 Ibuprofen 800 mg PO TID #30 tablet 04/07/17 Disposition Discussed With: Patient
[2017-05-09 20:49] VITALS: BP 142/82; TEMP 98.8
== END 2017-05-09 21:42 | disposition home or self-care (01) ==
LOC: ED 20:38
DX: G43.909 Migraine, unspecified, not intractable, without status migrainosus (principal); F17.210 Nicotine dependence, cigarettes, uncomplicated
CPT/HCPCS: 96372; 99283

== ENCOUNTER 2017-06-11 20:11 | Emergency (ER) ==
[~2017-06-11 20:11] MED LIST: DILAUDID 1 MG/ML SYRINGE IM STA; PHENERGAN 25 MG/ML VIAL IM STA; TORADOL IM STA
--- NOTE | 2017-06-11 20:15 | ED.PDOC ---
General ED Provider: Dr. 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--i have a new job and im under stress Time Seen by Physician: 20:13 Mode of Arrival: Walk-In Information Source: Patient Exam Limitations: No limitations Primary Care Provider: ZORAN PLASCENCIA Nursing and Triage Documentation Reviewed and Agree: Yes Neurological Complaint Exam - Headache Complaint/Exam Onset: Gradual Duration: 6hrs Symptoms Are: Still present Timing: Constant Episodes Lasting: Hours Worst Headache Ever: No Initial Severity: Mild Current Severity: Moderate Location: Diffuse Character: Reports: Dull, Throbbing, Pressure, Typical headache, Migraine Aggravating: Reports: Bright lights Alleviating: Reports: None Associated Signs and Symptoms: Reports: Nausea, Vomiting. Denies: Dizziness, Seizure, Sinus pressure, Fever, Neck pain, Neck stiffness, Decreased LOC, Visual changes Related History: Reports: Similar episode Related Surgical History: Reports: None Temporal Arteritis Risk Factors: Reports: Female, Normal Head CT Within Last 12 Months: Yes Fundoscopic Exam: Present: Normal Findings Papilledema Present: No Temporal Artery Tenderness: Present: None Sinus Tenderness: Present: None TMJ Tenderness: Present: None Glascow Coma Scale (see protocol): 15 Meningeal Signs Positive: No Pain on Passive Flexion-Positive Kernig's: No ROM Limited In: No Limitiations Focal Weakness: Present: None Focal Sensory Loss: Present: None Gait: Normal Nystagmus Present: No Gag Reflex Present: Yes [id number]: Normal Findings Romberg Test Positive: No Babinski Sign: Negative Right, Negative Left Heel to Toe Normal: Yes Differential Diagnoses: Migraine Review of Systems - Review Of Systems Constitutional: Reports: No symptoms Eyes: Reports: No symptoms Ears, Nose, Mouth, Throat: Reports: No symptoms Respiratory: Reports: No symptoms Cardiac: Reports: No symptoms GI: Reports: Nausea, Vomiting : Reports: No symptoms Musculoskeletal: Reports: No symptoms Skin: Reports: No symptoms Neurological: Reports: Headache Endocrine: Reports: No symptoms Hematologic/Lymphatic: Reports: No symptoms All Other Systems: Reviewed and Negative Past Medical History - Past Medical History Previously Healthy: No Endocrine: Reports: DM 1 Cardiovascular: Reports: None Respiratory: Reports: None Hematological: Reports: None Gastrointestinal: Reports: None Genitourinary: Reports: None Neuro/Psych: Reports: Migraine, Anxiety, Depression Musculoskeletal: Reports: None Cancer: Reports: None Other Pertinent Past Medical History: LOW VIT D - Surgical History General Surgical History: Reports: Tubal ligation, (LT OVARY REMOVED) , Appendectomy, Cholecystectomy, Tonsillectomy, Adenoidectomy, Orthopedic (LEFT KNEE SURGERY), Other (EAR TUBES-ORAL SURG-LEFT BREAST TUMOR REMOVED). Denies: Hysterectomy (LT OVARY REMOVED) - Family History Family History: Reports: None - Social History Smoking Status: Current every day smoker, Heavy tobacco smoker Hx Substance Use: No Alcohol Screening: None Lives: With family Physical Exam - Physical Exam Appearance: Ill-appearing Pain Distress: Moderate Eyes: LEVI, EOMI, Conjunctiva clear ENT: Ears normal, Nose normal, Oropharynx normal Neck: Supple Respiratory: Airway patent, Breath sounds clear, Breath sounds equal, Respirations nonlabored Cardiovascular: RRR, Pulses normal, No rub, No murmur GI/: Soft Musculoskeletal: Normal strength, ROM intact, No edema, No calf tenderness Skin: Warm, Dry, Normal color Neurological: Alert, Oriented Psychiatric: Affect appropriate, Mood appropriate Re-Evaluation - Re-Evaluation Time of Re-Evaluation: 21:00 Status: Improved Vital Signs Stable: Yes Pain Level: 1 Appearance: NAD Lungs: Clear Skin: Warm and Dry Neuro: Alert and Oriented X3 CV: RRR Critical Care Note - Critical Care Note Total Time (mins): 0 Course - Course Orders, Labs, Meds: Orders Category Date Time Status Hydromorphone HCl [Dilaudid 1 mg/ml Syringe] MEDS 06/11/17 20:11 Discontinued 1 mg IM ONCE STA Ketorolac Tromethamine [Toradol] MEDS 06/11/17 20:11 Discontinued 60 mg IM ONCE STA Promethazine HCl [Phenergan 25 mg/ml Vial] MEDS 06/11/17 20:11 Discontinued 25 mg IM ONCE STA Medications Discontinued Medications Generic Name Dose Route Start Last Admin Trade Name Freq PRN Reason Stop Dose Admin Hydromorphone HCl 1 mg 06/11/17 20:11 06/11/17 20:38 Dilaudid 1 Mg/Ml Syringe IM 06/11/17 20:12 1 mg ONCE STA Administration Ketorolac Tromethamine 60 mg 06/11/17 20:11 06/11/17 20:39 Toradol IM 06/11/17 20:12 60 mg ONCE STA Administration Promethazine HCl 25 mg 06/11/17 20:11 06/11/17 20:39 Phenergan 25 Mg/Ml Vial IM 06/11/17 20:12 25 mg ONCE STA Administration Vital Signs: Temp Pulse Resp BP Pulse Ox 06/11/17 20:20 98.8 F 98 H 16 132/78 98 Departure - Departure Time of Disposition: 20:15 Disposition: HOME SELF-CARE Discharge Problem: Headache Instructions: Migraine Headache (ED) Condition: Good Pt referred to PMD for follow-up: Yes Additional Instructions: f/u pcp Allergies/Adverse Reactions: Allergies Sulfa (Sulfonamide Antibiotics) Allergy (Intermediate, Verified 05/09/17 20:49) Hives latex Adverse Reaction (Intermediate, Verified 05/09/17 20:49) Rash Home Medications: Ambulatory Orders Subcutaneous Insulin Pump [Insulin Pump] 1 each MC DIRECTED 06/27/13 Norgestimate-Ethinyl Estradiol [Mononessa 28 Tablet] 1 each PO DAILY 05/24/15 Sumatriptan Succinate [Imitrex] 100 mg PO BID PRN 01/12/16 Tizanidine HCl [Zanaflex] 4 mg PO BID 01/12/16 Buspirone HCl 10 mg PO TID 08/07/16 Clonazepam [Klonopin] 0.5 mg PO QID #120 08/27/16 Dextroamphetamine/Amphetamine [Adderall 10 mg Tablet] 5 mg PO BID 10/05/16 Amlodipine Besylate [Norvasc] 2.5 mg PO DAILY 10/16/16 Trazodone HCl 150 mg PO BEDTIME PRN #1 tablet 01/04/17 Ibuprofen 800 mg PO TID #30 tablet 04/07/17 Disposition Discussed With: Patient
[2017-06-11 20:25] VITALS: BP 132/78; TEMP 98.8; BMI 22.3
== END 2017-06-11 20:57 | disposition home or self-care (01) ==
LOC: ED 20:11
DX: G43.909 Migraine, unspecified, not intractable, without status migrainosus (principal); F17.210 Nicotine dependence, cigarettes, uncomplicated; Z79.899 Other long term (current) drug therapy
CPT/HCPCS: 96372; 99284

== ENCOUNTER 2017-07-02 20:38 | Emergency (ER) ==
[2017-07-02 20:48] VITALS: BP 121/80; TEMP 98.2; BMI 24.5
[2017-07-02] MEDS ORDERED: PHENERGAN 25 MG/ML VIAL IM STA (20:54)
[2017-07-02] MEDS ORDERED: DILAUDID 1 MG/ML SYRINGE IM STA (20:54)
[2017-07-02] MEDS ORDERED: TORADOL IM STA (20:54)
--- NOTE | 2017-07-02 20:57 | ED.PDOC ---
General ED Provider: Dr. VIRAL LARRY-ER Chief Complaint: Headache Stated Complaint: i have been under stress--getting and some conflict and im having a jones Time Seen by Physician: 20:55 Mode of Arrival: Walk-In Information Source: Patient Exam Limitations: No limitations Primary Care Provider: ZORAN PLASCENCIA Nursing and Triage Documentation Reviewed and Agree: Yes Neurological Complaint Exam - Headache Complaint/Exam Onset: Gradual Duration: 24hrs Symptoms Are: Still present Timing: Constant Episodes Lasting: Hours Worst Headache Ever: No Initial Severity: Mild Current Severity: Moderate Location: Diffuse Character: Reports: Dull, Throbbing, Pressure, Typical headache, Migraine Aggravating: Reports: Bright lights Alleviating: Reports: None Associated Signs and Symptoms: Reports: Nausea, Vomiting. Denies: Dizziness, Seizure, Sinus pressure, Fever, Neck pain, Neck stiffness, Decreased LOC, Visual changes Related History: Reports: Similar episode Related Surgical History: Reports: None SAH Risk Factors: Reports: None Meningitis Risk Factors: Reports: None SDH Risk Factors: Reports: None Temporal Arteritis Risk Factors: Reports: Female, Normal Head CT Within Last 12 Months: Yes Fundoscopic Exam: Present: Normal Findings Papilledema Present: No Temporal Artery Tenderness: Present: None Sinus Tenderness: Present: None TMJ Tenderness: Present: None Glascow Coma Scale (see protocol): 15 Meningeal Signs Positive: No Pain on Passive Flexion-Positive Kernig's: No ROM Limited In: No Limitiations Focal Weakness: Present: None Focal Sensory Loss: Present: None Nystagmus Present: No Gag Reflex Present: Yes [id number]: Normal Findings Romberg Test Positive: No Babinski Sign: Negative Right, Negative Left Heel to Toe Normal: No Differential Diagnoses: Migraine Review of Systems - Review Of Systems Constitutional: Reports: No symptoms Eyes: Reports: No symptoms Ears, Nose, Mouth, Throat: Reports: No symptoms Respiratory: Reports: No symptoms Cardiac: Reports: No symptoms GI: Reports: No symptoms : Reports: No symptoms Musculoskeletal: Reports: No symptoms Skin: Reports: No symptoms Neurological: Reports: Headache Endocrine: Reports: No symptoms Hematologic/Lymphatic: Reports: No symptoms All Other Systems: Reviewed and Negative Past Medical History - Past Medical History Previously Healthy: No Endocrine: Reports: DM 1 Cardiovascular: Reports: None Respiratory: Reports: None Hematological: Reports: None Gastrointestinal: Reports: None Genitourinary: Reports: None Neuro/Psych: Reports: Migraine, Anxiety, Depression Musculoskeletal: Reports: None Cancer: Reports: None Last Menstrual Period: 06/15/17 Other Pertinent Past Medical History: LOW VIT D - Surgical History General Surgical History: Reports: Tubal ligation, (LT OVARY REMOVED) , Appendectomy, Cholecystectomy, Tonsillectomy, Adenoidectomy, Orthopedic (LEFT KNEE SURGERY), Other (EAR TUBES-ORAL SURG-LEFT BREAST TUMOR REMOVED). Denies: Hysterectomy (LT OVARY REMOVED) - Family History Family History: Reports: None - Social History Smoking Status: Current every day smoker, Heavy tobacco smoker Hx Substance Use: No Alcohol Screening: None Lives: With family Physical Exam - Physical Exam Appearance: Well-appearing, No pain distress, Well-nourished Eyes: LEVI, EOMI, Conjunctiva clear ENT: Ears normal, Nose normal, Oropharynx normal Neck: Supple Respiratory: Airway patent, Breath sounds clear, Breath sounds equal, Respirations nonlabored Cardiovascular: RRR, Pulses normal, No rub, No murmur GI/: Soft, Nontender, No masses, Bowel sounds normal, No Organomegaly Musculoskeletal: Normal strength Skin: Warm, Dry, Normal color Neurological: Alert, Oriented Psychiatric: Affect appropriate, Mood appropriate Re-Evaluation - Re-Evaluation Time of Re-Evaluation: 21:15 Status: Improved Vital Signs Stable: Yes Pain Level: 1 Appearance: NAD Lungs: Clear Skin: Warm and Dry Neuro: Alert and Oriented X3 CV: RRR Critical Care Note - Critical Care Note Total Time (mins): 0 Course - Course Orders, Labs, Meds: Orders Category Date Time Status Hydromorphone HCl [Dilaudid 1 mg/ml Syringe] MEDS 07/02/17 20:54 Stat 1 mg IM ONCE STA Ketorolac Tromethamine [Toradol] MEDS 07/02/17 20:54 Stat 60 mg IM ONCE STA Promethazine HCl [Phenergan 25 mg/ml Vial] MEDS 07/02/17 20:54 Stat 25 mg IM ONCE STA Vital Signs: Temp Pulse Resp BP Pulse Ox 07/02/17 20:43 98.2 F 83 18 121/80 96 Departure - Departure Time of Disposition: 20:58 Disposition: HOME SELF-CARE Discharge Problem: Migraine headache Qualifiers: Migraine type: without aura Status migrainosus presence: without status migrainosus Intractability: not intractable Qualifier Code: (G43.009) Migraine without aura, not intractable, without status migrainosus Instructions: Migraine Headache (ED) Condition: Good Pt referred to PMD for follow-up: Yes Additional Instructions: f/u with pcp Allergies/Adverse Reactions: Allergies Sulfa (Sulfonamide Antibiotics) Allergy (Intermediate, Verified 07/02/17 20:47) Hives latex Adverse Reaction (Intermediate, Verified 07/02/17 20:47) Rash Home Medications: Ambulatory Orders Subcutaneous Insulin Pump [Insulin Pump] 1 each MC DIRECTED 06/27/13 Norgestimate-Ethinyl Estradiol [Mononessa 28 Tablet] 1 each PO DAILY 05/24/15 Sumatriptan Succinate [Imitrex] 100 mg PO BID PRN 01/12/16 Tizanidine HCl [Zanaflex] 4 mg PO BID 01/12/16 Buspirone HCl 10 mg PO TID 08/07/16 Clonazepam [Klonopin] 0.5 mg PO QID #120 08/27/16 Dextroamphetamine/Amphetamine [Adderall 10 mg Tablet] 5 mg PO BID 10/05/16 Amlodipine Besylate [Norvasc] 2.5 mg PO DAILY 10/16/16 Trazodone HCl 150 mg PO BEDTIME PRN #1 tablet 01/04/17 Ibuprofen 800 mg PO TID #30 tablet 04/07/17 Disposition Discussed With: Patient
== END 2017-07-02 21:30 | disposition home or self-care (01) ==
LOC: ED 20:38
DX: G43.009 Migraine without aura, not intractable, without status migrainosus (principal); F17.210 Nicotine dependence, cigarettes, uncomplicated
CPT/HCPCS: 96372; 99283

== ENCOUNTER 2017-08-15 19:23 | Emergency (ER) ==
[2017-08-15 19:23] VITALS: BMI 22.3
[2017-08-15] MEDS ORDERED: TORADOL IM STA (19:25)
[2017-08-15] MEDS ORDERED: PHENERGAN 25 MG/ML VIAL IM STA (19:25)
[2017-08-15] MEDS ORDERED: DILAUDID 2 MG/ML SYRINGE IM STA (19:25)
--- NOTE | 2017-08-15 19:29 | ED.PDOC ---
General ED Provider: Dr. VIRAL LARRY-ER Chief Complaint: Headache Stated Complaint: hunter had a migraine for 3 days Time Seen by Physician: 19:27 Mode of Arrival: Walk-In Information Source: Patient Exam Limitations: No limitations Primary Care Provider: ZORAN STEELE Nursing and Triage Documentation Reviewed and Agree: Yes Neurological Complaint Exam - Headache Complaint/Exam Onset: Gradual Duration: 3 days Symptoms Are: Still present Timing: Constant Episodes Lasting: Days Worst Headache Ever: No Initial Severity: Mild Current Severity: Moderate Location: Diffuse Character: Reports: Dull, Throbbing, Typical headache, Migraine Aggravating: Reports: Bright lights Alleviating: Reports: None Associated Signs and Symptoms: Reports: Nausea. Denies: Dizziness, Seizure, Vomiting, Sinus pressure, Fever, Neck pain, Neck stiffness, Decreased LOC, Visual changes Related History: Reports: Similar episode ("this is like my usual jones") Related Surgical History: Reports: None SAH Risk Factors: Reports: None Meningitis Risk Factors: Reports: None SDH Risk Factors: Reports: None Temporal Arteritis Risk Factors: Reports: Female, Normal Head CT Within Last 12 Months: Yes Fundoscopic Exam: Present: Normal Findings Papilledema Present: No Temporal Artery Tenderness: Present: None Sinus Tenderness: Present: None TMJ Tenderness: Present: None Glascow Coma Scale (see protocol): 15 Meningeal Signs Positive: No Pain on Passive Flexion-Positive Kernig's: No ROM Limited In: No Limitiations Focal Weakness: Present: None Focal Sensory Loss: Present: None Gait: Normal Nystagmus Present: No [id number]: Normal Findings Romberg Test Positive: No Babinski Sign: Negative Right, Negative Left Heel to Toe Normal: Yes Differential Diagnoses: Migraine Review of Systems - Review Of Systems Constitutional: Reports: No symptoms Eyes: Reports: No symptoms Ears, Nose, Mouth, Throat: Reports: No symptoms Respiratory: Reports: No symptoms Cardiac: Reports: No symptoms GI: Reports: Nausea : Reports: No symptoms Musculoskeletal: Reports: No symptoms Skin: Reports: No symptoms Neurological: Reports: Headache Endocrine: Reports: No symptoms Hematologic/Lymphatic: Reports: No symptoms All Other Systems: Reviewed and Negative Past Medical History - Past Medical History Previously Healthy: No Endocrine: Reports: DM 1 Cardiovascular: Reports: None Respiratory: Reports: None Hematological: Reports: None Gastrointestinal: Reports: None Genitourinary: Reports: None Neuro/Psych: Reports: Migraine, Anxiety, Depression Musculoskeletal: Reports: None Cancer: Reports: None Other Pertinent Past Medical History: LOW VIT D - Surgical History General Surgical History: Reports: Tubal ligation, (LT OVARY REMOVED) , Appendectomy, Cholecystectomy, Tonsillectomy, Adenoidectomy, Orthopedic (LEFT KNEE SURGERY), Other (EAR TUBES-ORAL SURG-LEFT BREAST TUMOR REMOVED). Denies: Hysterectomy (LT OVARY REMOVED) - Family History Family History: Reports: None - Social History Smoking Status: Current every day smoker, Heavy tobacco smoker Hx Substance Use: No Alcohol Screening: None Lives: With family Physical Exam - Physical Exam Appearance: Well-appearing, No pain distress, Well-nourished Eyes: LEVI, EOMI, Conjunctiva clear ENT: Ears normal, Nose normal, Oropharynx normal Neck: Supple Respiratory: Airway patent, Breath sounds clear, Breath sounds equal, Respirations nonlabored Cardiovascular: RRR, Pulses normal, No rub, No murmur GI/: Soft, Nontender, No masses, Bowel sounds normal, No Organomegaly Musculoskeletal: Normal strength, ROM intact, No edema, No calf tenderness Skin: Warm, Dry, Normal color Neurological: Sensation intact Psychiatric: Affect appropriate, Mood appropriate Re-Evaluation - Re-Evaluation Time of Re-Evaluation: 20:00 Status: Improved Vital Signs Stable: Yes Pain Level: 1 Appearance: NAD Lungs: Clear Skin: Warm and Dry Neuro: Alert and Oriented X3 CV: RRR Critical Care Note - Critical Care Note Total Time (mins): 0 Course - Course Orders, Labs, Meds: Orders Category Date Time Status Hydromorphone HCl/Pf [Dilaudid 2 mg/ml Syringe] MEDS 08/15/17 19:25 Stat 2 mg IM ONCE STA Ketorolac Tromethamine [Toradol] MEDS 08/15/17 19:25 Stat 60 mg IM ONCE STA Promethazine HCl [Phenergan 25 mg/ml Vial] MEDS 08/15/17 19:25 Stat 25 mg IM ONCE STA Departure - Departure Time of Disposition: 19:32 Disposition: HOME SELF-CARE Discharge Problem: Migraine headache Qualifiers: Migraine type: unspecified Status migrainosus presence: without status migrainosus Intractability: not intractable Qualified Code(s): G43.909 - Migraine, unspecified, not intractable, without status migrainosus Instructions: Migraine Headache (ED) Condition: Good Pt referred to PMD for follow-up: Yes Additional Instructions: f/u wtih dr steele/neuriology Allergies/Adverse Reactions: Allergies Sulfa (Sulfonamide Antibiotics) Allergy (Intermediate, Verified 07/02/17 20:47) Hives latex Adverse Reaction (Intermediate, Verified 07/02/17 20:47) Rash Home Medications: Ambulatory Orders Subcutaneous Insulin Pump [Insulin Pump] 1 each MC DIRECTED 06/27/13 Norgestimate-Ethinyl Estradiol [Mononessa 28 Tablet] 1 each PO DAILY 05/24/15 Sumatriptan Succinate [Imitrex] 100 mg PO BID PRN 01/12/16 Tizanidine HCl [Zanaflex] 4 mg PO BID 01/12/16 Buspirone HCl 10 mg PO TID 08/07/16 Clonazepam [Klonopin] 0.5 mg PO QID #120 08/27/16 Dextroamphetamine/Amphetamine [Adderall 10 mg Tablet] 5 mg PO BID 10/05/16 Amlodipine Besylate [Norvasc] 2.5 mg PO DAILY 10/16/16 Trazodone HCl 150 mg PO BEDTIME PRN #1 tablet 01/04/17 Ibuprofen 800 mg PO TID #30 tablet 04/07/17 Disposition Discussed With: Patient
[2017-08-15 19:30] VITALS: BP 126/73; TEMP 97.7
== END 2017-08-15 19:45 | disposition home or self-care (01) ==
LOC: ED 19:23
DX: G43.909 Migraine, unspecified, not intractable, without status migrainosus (principal); F17.210 Nicotine dependence, cigarettes, uncomplicated
CPT/HCPCS: 96372; 99282

== ENCOUNTER 2017-09-25 20:47 | Emergency (ER) ==
[2017-09-25] MEDS ORDERED: DILAUDID 2 MG/ML SYRINGE IM STA (20:52)
[2017-09-25] MEDS ORDERED: PHENERGAN 25 MG/ML VIAL IM STA (20:52)
[2017-09-25 20:54] VITALS: BP 145/87; TEMP 98.1; BMI 21.6
--- NOTE | 2017-09-25 20:55 | ED.PDOC ---
General ED Provider: Dr. VIRAL LARRY-ER Chief Complaint: Headache Stated Complaint: my got some new cologne and i sprayed it and it gave me a headache Time Seen by Physician: 20:53 Mode of Arrival: Walk-In Information Source: Patient Exam Limitations: No limitations Primary Care Provider: ZORAN PLASCENCIA Nursing and Triage Documentation Reviewed and Agree: Yes Neurological Complaint Exam - Headache Complaint/Exam Onset: Gradual Duration: several hours Symptoms Are: Still present Timing: Constant Episodes Lasting: Hours Worst Headache Ever: No Initial Severity: Mild Current Severity: Moderate Location: Diffuse Character: Reports: Throbbing, Pressure, Typical headache, Migraine Aggravating: Reports: Bright lights Alleviating: Reports: None Associated Signs and Symptoms: Reports: Nausea, Vomiting. Denies: Dizziness, Seizure, Sinus pressure, Neck pain, Neck stiffness, Decreased LOC, Visual changes Related History: Reports: Similar episode (long hx of migraine--this is the same type of jones) Related Surgical History: Reports: None SAH Risk Factors: Reports: None Meningitis Risk Factors: Reports: None SDH Risk Factors: Reports: None Temporal Arteritis Risk Factors: Reports: Female, Normal Head CT Within Last 12 Months: Yes Fundoscopic Exam: Present: Normal Findings Papilledema Present: No Temporal Artery Tenderness: Present: None Sinus Tenderness: Present: None TMJ Tenderness: Present: None Glascow Coma Scale (see protocol): 15 Meningeal Signs Positive: No Pain on Passive Flexion-Positive Kernig's: No ROM Limited In: No Limitiations Focal Weakness: Present: None Focal Sensory Loss: Present: None Gait: Normal Nystagmus Present: No Gag Reflex Present: No [id number]: Normal Findings Romberg Test Positive: No Babinski Sign: Negative Right, Negative Left Heel to Toe Normal: Yes Differential Diagnoses: Migraine Review of Systems - Review Of Systems Constitutional: Reports: No symptoms Eyes: Reports: No symptoms Ears, Nose, Mouth, Throat: Reports: No symptoms Respiratory: Reports: No symptoms Cardiac: Reports: No symptoms GI: Reports: Nausea, Vomiting : Reports: No symptoms Musculoskeletal: Reports: No symptoms Skin: Reports: No symptoms Neurological: Reports: Headache Endocrine: Reports: No symptoms Hematologic/Lymphatic: Reports: No symptoms All Other Systems: Reviewed and Negative Past Medical History - Past Medical History Previously Healthy: No Endocrine: Reports: DM 1 Cardiovascular: Reports: None Respiratory: Reports: None Hematological: Reports: None Gastrointestinal: Reports: None Genitourinary: Reports: None Neuro/Psych: Reports: Migraine, Anxiety, Depression Musculoskeletal: Reports: None Cancer: Reports: None Other Pertinent Past Medical History: LOW VIT D - Surgical History General Surgical History: Reports: Tubal ligation, (LT OVARY REMOVED) , Appendectomy, Cholecystectomy, Tonsillectomy, Adenoidectomy, Orthopedic (LEFT KNEE SURGERY), Other (EAR TUBES-ORAL SURG-LEFT BREAST TUMOR REMOVED). Denies: Hysterectomy (LT OVARY REMOVED) - Family History Family History: Reports: None - Social History Smoking Status: Current every day smoker, Heavy tobacco smoker Hx Substance Use: No Alcohol Screening: None Lives: With family Physical Exam - Physical Exam Appearance: Well-appearing, No pain distress, Well-nourished Pain Distress: Moderate Eyes: LEVI ENT: Ears normal, Nose normal, Oropharynx normal Neck: Supple Respiratory: Airway patent, Breath sounds clear, Breath sounds equal, Respirations nonlabored Cardiovascular: RRR GI/: Soft Musculoskeletal: Normal strength Skin: Warm, Dry, Normal color Neurological: Sensation intact, Motor intact, Reflexes intact, Cranial nerves intact, Alert, Oriented Psychiatric: Affect appropriate, Mood appropriate Re-Evaluation - Re-Evaluation Time of Re-Evaluation: 21:15 Status: Improved Vital Signs Stable: Yes Pain Level: 1 Appearance: NAD Lungs: Clear Skin: Warm and Dry Neuro: Alert and Oriented X3 CV: RRR Critical Care Note - Critical Care Note Total Time (mins): 0 Course - Course Orders, Labs, Meds: Orders Category Date Time Status Hydromorphone HCl/Pf [Dilaudid 2 mg/ml Syringe] MEDS 09/25/17 20:52 Stat 2 mg IM ONCE STA Promethazine HCl [Phenergan 25 mg/ml Vial] MEDS 09/25/17 20:52 Stat 25 mg IM ONCE STA Medications Discontinued Medications Generic Name Dose Route Start Last Admin Trade Name Freq PRN Reason Stop Dose Admin Hydromorphone HCl 2 mg 09/25/17 20:52 Dilaudid 2 Mg/Ml Syringe IM 09/25/17 20:53 ONCE STA Promethazine HCl 25 mg 09/25/17 20:52 Phenergan 25 Mg/Ml Vial IM 09/25/17 20:53 ONCE STA Departure - Departure Time of Disposition: 20:56 Disposition: HOME SELF-CARE Discharge Problem: Migraine headache Qualifiers: Migraine type: unspecified Status migrainosus presence: without status migrainosus Intractability: not intractable Qualified Code(s): G43.909 - Migraine, unspecified, not intractable, without status migrainosus Instructions: Migraine Headache (ED) Condition: Good Pt referred to PMD for follow-up: Yes Additional Instructions: f/u with pcp Allergies/Adverse Reactions: Allergies Sulfa (Sulfonamide Antibiotics) Allergy (Intermediate, Verified 08/15/17 19:27) Hives latex Adverse Reaction (Intermediate, Verified 08/15/17 19:27) Rash Home Medications: Ambulatory Orders Subcutaneous Insulin Pump [Insulin Pump] 1 each MC DIRECTED 06/27/13 Norgestimate-Ethinyl Estradiol [Mononessa 28 Tablet] 1 each PO DAILY 05/24/15 Sumatriptan Succinate [Imitrex] 100 mg PO BID PRN 01/12/16 Tizanidine HCl [Zanaflex] 4 mg PO BID 01/12/16 Buspirone HCl 10 mg PO TID 08/07/16 Clonazepam [Klonopin] 0.5 mg PO QID #120 08/27/16 Dextroamphetamine/Amphetamine [Adderall 10 mg Tablet] 5 mg PO BID 10/05/16 Amlodipine Besylate [Norvasc] 2.5 mg PO DAILY 10/16/16 Trazodone HCl 150 mg PO BEDTIME PRN #1 tablet 01/04/17 Ibuprofen 800 mg PO TID #30 tablet 04/07/17 Hydrocodone/Acetaminophen [[place] 7.5-325 Tablet] 1 each PO BID PRN 08/29/17 Disposition Discussed With: Patient
== END 2017-09-25 21:08 | disposition home or self-care (01) ==
LOC: ED 20:47
DX: G43.909 Migraine, unspecified, not intractable, without status migrainosus (principal); F17.210 Nicotine dependence, cigarettes, uncomplicated
CPT/HCPCS: 96372; 99282

== ENCOUNTER 2017-10-22 21:54 | Emergency (ER) ==
[2017-10-22 22:06] VITALS: BP 136/86; TEMP 98.3; BMI 22.5
[2017-10-22] MEDS ORDERED: ZOFRAN 4 MG/2 ML IM STA (22:19)
[2017-10-22] MEDS ORDERED: TORADOL IM STA (22:19)
--- NOTE | 2017-10-22 22:22 | ED.PDOC ---
General ED Provider: Dr. ASHISH ONEILL Chief Complaint: Headache Stated Complaint: headcahe, typical migraine,. Also has sore throat, my son had strep. Time Seen by Physician: 22:20 Mode of Arrival: Walk-In Information Source: Patient Primary Care Provider: ZORAN PLASCENCIA Nursing and Triage Documentation Reviewed and Agree: Yes Reviewed sepsis parameters & appropriate labs ordered?: No System Inflammatory Response Syndrome: Not Applicable Sepsis Protocol: For patient's 13 years and over: Temp is 96.8 and below OR 101 and greater Pulse >90 BPM Resp >20/minute Acutely Altered Mental Status Are patient's symptoms suggestive of a new infection, such as: -Pneumonia -Skin, Soft Tissue -Endocarditis -UTI -Bone, Joint Infection -Implantable Device -Acute Abdominal Infection -Wound Infection -Meningitis -Blood Stream Catheter Infection -Unknown Neurological Complaint Exam - Headache Complaint/Exam Onset: Gradual Symptoms Are: Still present Timing: Constant Episodes Lasting: Days Worst Headache Ever: No Initial Severity: Moderate Current Severity: Moderate Location: Right, Left, Frontal Character: Reports: Dull, Throbbing, Typical headache, Migraine Aggravating: Reports: Bright lights Alleviating: Reports: None Associated Signs and Symptoms: Denies: Dizziness, Seizure, Nausea, Vomiting, Sinus pressure, Fever, Neck pain, Neck stiffness, Decreased LOC, Visual changes Related History: Reports: Similar episode Related Surgical History: Reports: None SAH Risk Factors: Reports: None Meningitis Risk Factors: Reports: None SDH Risk Factors: Reports: None Temporal Arteritis Risk Factors: Reports: None Normal Head CT Within Last 12 Months: Yes Temporal Artery Tenderness: Present: None Sinus Tenderness: Present: None TMJ Tenderness: Present: None Meningeal Signs Positive: No Pain on Passive Flexion-Positive Kernig's: No ROM Limited In: No Limitiations Focal Weakness: Present: None Focal Sensory Loss: Present: None Gait: Normal Nystagmus Present: No Gag Reflex Present: Yes [id number]: Normal Findings Romberg Test Positive: No Differential Diagnoses: Migraine, Other (strep) Review of Systems - Review Of Systems Constitutional: Reports: No symptoms Eyes: Reports: No symptoms Ears, Nose, Mouth, Throat: Reports: Throat pain Respiratory: Reports: No symptoms Cardiac: Reports: No symptoms GI: Reports: No symptoms : Reports: No symptoms Musculoskeletal: Reports: No symptoms Skin: Reports: No symptoms Neurological: Reports: Headache Endocrine: Reports: No symptoms Hematologic/Lymphatic: Reports: No symptoms All Other Systems: Reviewed and Negative Past Medical History - Past Medical History Previously Healthy: No Endocrine: Reports: DM 1 Cardiovascular: Reports: None Respiratory: Reports: None Hematological: Reports: None Gastrointestinal: Reports: None Genitourinary: Reports: None Neuro/Psych: Reports: Migraine, Anxiety, Depression Musculoskeletal: Reports: None Cancer: Reports: None Last Menstrual Period: 3 WEEKS AGO Other Pertinent Past Medical History: LOW VIT D - Surgical History General Surgical History: Reports: Tubal ligation, (LT OVARY REMOVED) , Appendectomy, Cholecystectomy, Tonsillectomy, Adenoidectomy, Orthopedic (LEFT KNEE SURGERY), Other (EAR TUBES-ORAL SURG-LEFT BREAST TUMOR REMOVED). Denies: Hysterectomy (LT OVARY REMOVED) - Family History Family History: Reports: None - Social History Smoking Status: Current every day smoker, Heavy tobacco smoker Smoking Cessation Counseling Time: > 10 min Hx Substance Use: No Alcohol Screening: None - Immunizations Tetanus Shot up to Date: Yes Physical Exam - Physical Exam Appearance: Well-appearing, No pain distress, Well-nourished Eyes: LEVI, EOMI, Conjunctiva clear ENT: Ears normal, Nose normal, Erythema Respiratory: Airway patent, Breath sounds clear, Breath sounds equal, Respirations nonlabored Cardiovascular: RRR, Pulses normal, No rub, No murmur GI/: Soft, Nontender, No masses, Bowel sounds normal, No Organomegaly Musculoskeletal: Normal strength, ROM intact, No edema, No calf tenderness Skin: Warm, Dry, Normal color Neurological: Sensation intact, Motor intact, Reflexes intact, Cranial nerves intact, Alert, Oriented Psychiatric: Affect appropriate, Mood appropriate Critical Care Note - Critical Care Note Total Time (mins): 15 Course - Course Orders, Labs, Meds: Orders Category Date Time Status STREP SCREEN Stat LAB 10/22/17 22:23 Completed Amoxicillin/Potassium Clav [Augmentin 500-125 mg Tab] MEDS 10/22/17 22:42 Discontinued 1 tab PO ONCE STA Ketorolac Tromethamine [Toradol] MEDS 10/22/17 22:19 Discontinued 30 mg IM ONCE STA Ondansetron HCl/Pf [Zofran 4 mg/2 ml] MEDS 10/22/17 22:19 Discontinued 4 mg IM ONCE STA Medications Discontinued Medications Generic Name Dose Route Start Last Admin Trade Name Freq PRN Reason Stop Dose Admin Amoxicillin/Clavulanate Potassium 1 tab 10/22/17 22:42 10/22/17 22:52 Augmentin 500-125 Mg Tab PO 10/22/17 22:43 1 tab ONCE STA Administration Ketorolac Tromethamine 30 mg 10/22/17 22:19 10/22/17 22:51 Toradol IM 10/22/17 22:20 30 mg ONCE STA Administration Ondansetron HCl 4 mg 10/22/17 22:19 10/22/17 22:47 Zofran 4 Mg/2 Ml IM 10/22/17 22:20 4 mg ONCE STA Administration Vital Signs: Temp Pulse Resp BP Pulse Ox 10/22/17 21:55 98.3 F 98 H 18 136/86 96 Departure - Departure Time of Disposition: 22:58 Disposition: HOME SELF-CARE Discharge Problem: Headache, Strep pharyngitis Instructions: Migraine Headache (ED) Condition: Good Pt referred to PMD for follow-up: Yes Additional Instructions: Keep f/u with PMD Continue taking home medications Take medication with food Prescriptions: Amoxicillin/Potassium Clav [Augmentin 500-125 mg Tab] 1 tab PO Q12HR #20 tablet Prednisone 10 mg PO BIDWM #14 tablet Allergies/Adverse Reactions: Allergies Sulfa (Sulfonamide Antibiotics) Allergy (Intermediate, Verified 10/22/17 22:01) Hives latex Adverse Reaction (Intermediate, Verified 10/22/17 22:01) Rash Home Medications: Ambulatory Orders Subcutaneous Insulin Pump [Insulin Pump] 1 each DIRECTED 06/27/13 Norgestimate-Ethinyl Estradiol [Mononessa 28 Tablet] 1 each PO DAILY 05/24/15 Sumatriptan Succinate [Imitrex] 100 mg PO BID PRN 01/12/16 Tizanidine HCl [Zanaflex] 4 mg PO BID 01/12/16 Buspirone HCl 10 mg PO TID 08/07/16 Clonazepam [Klonopin] 0.5 mg PO QID #120 08/27/16 Dextroamphetamine/Amphetamine [Adderall 10 mg Tablet] 5 mg PO BID 10/05/16 Trazodone HCl 150 mg PO BEDTIME PRN #1 tablet 01/04/17 Hydrocodone/Acetaminophen [[place] 7.5-325 Tablet] 1 each PO BID PRN 08/29/17 Amoxicillin/Potassium Clav [Augmentin 500-125 mg Tab] 1 tab PO Q12HR #20 tablet 10/22/17 Ibuprofen 800 mg PO TID PRN 10/22/17 Prednisone 10 mg PO BIDWM #14 tablet 10/22/17 Disposition Discussed With: Patient
[2017-10-22] MEDS ORDERED: AUGMENTIN 500-125 MG TAB PO STA (22:42)
== END 2017-10-22 23:08 | disposition home or self-care (01) ==
LOC: ED 21:54
DX: J02.0 Streptococcal pharyngitis (principal); R51 Headache; F17.210 Nicotine dependence, cigarettes, uncomplicated
CPT/HCPCS: 87880; 96372; 99283

== ENCOUNTER 2017-10-23 21:42 | Emergency (ER) ==
[2017-10-23] MEDS ORDERED: DILAUDID 2 MG/ML SYRINGE IM STA (21:45)
[2017-10-23] MEDS ORDERED: PHENERGAN 25 MG/ML VIAL IM STA (21:45)
--- NOTE | 2017-10-23 21:49 | ED.PDOC ---
General ED Provider: Dr. VIRAL LARRY-ER Chief Complaint: Headache Stated Complaint: hunter got one of my migraine jones Time Seen by Physician: 21:47 Mode of Arrival: Walk-In Information Source: Patient Exam Limitations: No limitations Primary Care Provider: ZORAN PLASCENCIA Nursing and Triage Documentation Reviewed and Agree: Yes Reviewed sepsis parameters & appropriate labs ordered?: Yes System Inflammatory Response Syndrome: Not Applicable Sepsis Protocol: For patient's 13 years and over: Temp is 96.8 and below OR 101 and greater Pulse >90 BPM Resp >20/minute Acutely Altered Mental Status Are patient's symptoms suggestive of a new infection, such as: -Pneumonia -Skin, Soft Tissue -Endocarditis -UTI -Bone, Joint Infection -Implantable Device -Acute Abdominal Infection -Wound Infection -Meningitis -Blood Stream Catheter Infection -Unknown Neurological Complaint Exam - Headache Complaint/Exam Onset: Gradual Duration: several hours Symptoms Are: Still present Timing: Constant Worst Headache Ever: No Initial Severity: Mild Current Severity: Moderate Character: Reports: Dull, Throbbing, Typical headache, Migraine Aggravating: Reports: Bright lights Alleviating: Reports: None Associated Signs and Symptoms: Reports: Nausea. Denies: Dizziness, Seizure, Vomiting, Sinus pressure, Fever, Neck pain, Neck stiffness, Decreased LOC, Visual changes Related History: Reports: Similar episode Related Surgical History: Reports: None SDH Risk Factors: Reports: None Temporal Arteritis Risk Factors: Reports: Female, Normal Head CT Within Last 12 Months: Yes Fundoscopic Exam: Present: Normal Findings Papilledema Present: No Temporal Artery Tenderness: Present: None Sinus Tenderness: Present: None TMJ Tenderness: Present: None Glascow Coma Scale (see protocol): 15 Meningeal Signs Positive: No Pain on Passive Flexion-Positive Kernig's: No ROM Limited In: No Limitiations Focal Weakness: Present: None Focal Sensory Loss: Present: None Gait: Normal Nystagmus Present: No Gag Reflex Present: Yes [id number]: Normal Findings Romberg Test Positive: No Babinski Sign: Negative Right, Negative Left Heel to Toe Normal: Yes Differential Diagnoses: Migraine Review of Systems - Review Of Systems Constitutional: Reports: No symptoms Eyes: Reports: No symptoms Ears, Nose, Mouth, Throat: Reports: No symptoms Respiratory: Reports: No symptoms Cardiac: Reports: No symptoms GI: Reports: Nausea : Reports: No symptoms Musculoskeletal: Reports: No symptoms Skin: Reports: No symptoms Neurological: Reports: Headache Endocrine: Reports: No symptoms Hematologic/Lymphatic: Reports: No symptoms All Other Systems: Reviewed and Negative Past Medical History - Past Medical History Previously Healthy: No Endocrine: Reports: DM 1 Cardiovascular: Reports: None Respiratory: Reports: None Hematological: Reports: None Gastrointestinal: Reports: None Genitourinary: Reports: None Neuro/Psych: Reports: Migraine, Anxiety, Depression Musculoskeletal: Reports: None Cancer: Reports: None Last Menstrual Period: 2 WEEKS AGO Other Pertinent Past Medical History: LOW VIT D - Surgical History General Surgical History: Reports: Tubal ligation, (LT OVARY REMOVED) , Appendectomy, Cholecystectomy, Tonsillectomy, Adenoidectomy, Orthopedic (LEFT KNEE SURGERY), Other (EAR TUBES-ORAL SURG-LEFT BREAST TUMOR REMOVED). Denies: Hysterectomy (LT OVARY REMOVED) - Family History Family History: Reports: None - Social History Smoking Status: Current every day smoker, Heavy tobacco smoker Hx Substance Use: No Alcohol Screening: None - Immunizations Tetanus Shot up to Date: Yes Physical Exam - Physical Exam Appearance: Well-appearing, No pain distress, Well-nourished Pain Distress: Moderate Eyes: LEVI, EOMI, Conjunctiva clear ENT: Ears normal, Nose normal, Oropharynx normal Neck: Supple Respiratory: Airway patent, Breath sounds clear, Breath sounds equal, Respirations nonlabored Cardiovascular: RRR, Pulses normal, No rub, No murmur GI/: Soft, Nontender, No masses, Bowel sounds normal, No Organomegaly Musculoskeletal: Normal strength, ROM intact, No edema, No calf tenderness Skin: Warm, Dry, Normal color Neurological: Sensation intact, Motor intact, Reflexes intact, Cranial nerves intact, Alert, Oriented Psychiatric: Affect appropriate, Mood appropriate, Anxious Re-Evaluation - Re-Evaluation Time of Re-Evaluation: 21:49 Status: Improved Vital Signs Stable: Yes Pain Level: 0 Appearance: NAD Lungs: Clear Skin: Warm and Dry Neuro: Alert and Oriented X3 CV: RRR Critical Care Note - Critical Care Note Total Time (mins): 0 Course - Course Orders, Labs, Meds: Orders Category Date Time Status Hydromorphone HCl/Pf [Dilaudid 2 mg/ml Syringe] MEDS 10/23/17 21:45 Discontinued 2 mg IM ONCE STA Promethazine HCl [Phenergan 25 mg/ml Vial] MEDS 10/23/17 21:45 Discontinued 25 mg IM ONCE STA Medications Discontinued Medications Generic Name Dose Route Start Last Admin Trade Name Linsey PRN Reason Stop Dose Admin Hydromorphone HCl 2 mg 10/23/17 21:45 Dilaudid 2 Mg/Ml Syringe IM 10/23/17 21:46 ONCE STA Promethazine HCl 25 mg 10/23/17 21:45 Phenergan 25 Mg/Ml Vial IM 10/23/17 21:46 ONCE STA Vital Signs: Temp Pulse Resp BP Pulse Ox 10/23/17 21:42 98 F 79 18 134/78 95 Departure - Departure Time of Disposition: 21:49 Disposition: HOME SELF-CARE Discharge Problem: Migraine headache Qualifiers: Migraine type: unspecified Status migrainosus presence: without status migrainosus Intractability: not intractable Qualified Code(s): G43.909 - Migraine, unspecified, not intractable, without status migrainosus Instructions: Migraine Headache (ED) Condition: Good Pt referred to PMD for follow-up: Yes Allergies/Adverse Reactions: Allergies Sulfa (Sulfonamide Antibiotics) Allergy (Intermediate, Verified 10/22/17 22:01) Hives latex Adverse Reaction (Intermediate, Verified 10/22/17 22:01) Rash Home Medications: Ambulatory Orders Subcutaneous Insulin Pump [Insulin Pump] 1 each DIRECTED 06/27/13 Norgestimate-Ethinyl Estradiol [Mononessa 28 Tablet] 1 each PO DAILY 05/24/15 Sumatriptan Succinate [Imitrex] 100 mg PO BID PRN 01/12/16 Tizanidine HCl [Zanaflex] 4 mg PO BID 01/12/16 Buspirone HCl 10 mg PO TID 08/07/16 Clonazepam [Klonopin] 0.5 mg PO QID #120 08/27/16 Dextroamphetamine/Amphetamine [Adderall 10 mg Tablet] 5 mg PO BID 10/05/16 Trazodone HCl 150 mg PO BEDTIME PRN #1 tablet 01/04/17 Hydrocodone/Acetaminophen [Mckean 7.5-325 Tablet] 1 each PO BID PRN 08/29/17 Amoxicillin/Potassium Clav [Augmentin 500-125 mg Tab] 1 tab PO Q12HR #20 tablet 10/22/17 Ibuprofen 800 mg PO TID PRN 10/22/17 Prednisone 10 mg PO BIDWM #14 tablet 12/22/17 Disposition Discussed With: Patient
[2017-10-23 21:51] VITALS: BP 134/78; TEMP 98; BMI 22.5
== END 2017-10-23 22:05 | disposition home or self-care (01) ==
LOC: ED 21:42
DX: G43.909 Migraine, unspecified, not intractable, without status migrainosus (principal); F17.210 Nicotine dependence, cigarettes, uncomplicated
CPT/HCPCS: 96372; 99282

== ENCOUNTER 2017-10-29 13:04 | Emergency (ER) ==
[2017-10-29 13:16] VITALS: BP 126/90; TEMP 99.7; BMI 22.3
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
== END 2017-10-29 14:02 | disposition home or self-care (01) ==
LOC: ED 13:04
DX: S29.9XXA Unspecified injury of thorax, initial encounter (principal); S89.92XA Unspecified injury of left lower leg, initial encounter; S89.91XA Unspecified injury of right lower leg, initial encounter; Y00.XXXA Assault by blunt object, initial encounter; F17.210 Nicotine dependence, cigarettes, uncomplicated
CPT/HCPCS: 99283

== ENCOUNTER 2017-11-27 20:08 | Emergency (ER) ==
[2017-11-27 20:14] VITALS: BP 134/90; TEMP 99.8; BMI 22.9
[2017-11-27] MEDS ORDERED: ZOFRAN 4 MG/2 ML IM STA (20:38)
[2017-11-27] MEDS ORDERED: TORADOL IM STA (20:38)
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
--- NOTE | 2017-11-27 21:37 | CT ---
EXAM: CT head without contrast HISTORY: Headache COMPARISON: CT head 06/06/2015 and 01/11/2014 TECHNIQUE: Serial axial images of the brain were obtained from the skull base to the vertex without IV contrast. FINDINGS: The ventricles, cisterns and sulci are normal. The damico-white matter junction is well lexii ntained. No midline shift or mass is identified. There is no abnormal intra or extra-axial fluid co llection. The paranasal sinuses and mastoid air cells are clear. The osseous calvarium is intact. IMPRESSION: No acute intracranial abnormality or hemorrhage.
== END 2017-11-27 22:06 | disposition home or self-care (01) ==
LOC: ED 20:08
DX: R51 Headache (principal); F17.210 Nicotine dependence, cigarettes, uncomplicated; W20.8XXA Other cause of strike by thrown, projected or falling object, initial encounter
CPT/HCPCS: 81025; 96372; 99283

== ENCOUNTER 2017-12-18 20:15 | Emergency (ER) ==
[2017-12-18 20:15] VITALS: BMI 22.9
[2017-12-18 20:18] VITALS: BP 130/85; TEMP 98
[2017-12-18] MEDS ORDERED: NORFLEX IM STA (20:36)
[2017-12-18] MEDS ORDERED: IMITREX SUBCUT STA (20:37)
[2017-12-18] MEDS ORDERED: NUBAIN IM STA (21:32)
--- NOTE | 2017-12-18 21:54 | ED.PDOC ---
General ED Provider: Dr. JERI DIEHL Chief Complaint: Headache Stated Complaint: Patient complains of her usual migrane headaches that started 2 days ago. Has been taking her usual medication but has not worked. Time Seen by Physician: 20:30 Mode of Arrival: Walk-In Information Source: Patient Exam Limitations: No limitations Primary Care Provider: ZORAN PLASCENCIA Nursing and Triage Documentation Reviewed and Agree: Yes Reviewed sepsis parameters & appropriate labs ordered?: Yes System Inflammatory Response Syndrome: Not Applicable Sepsis Protocol: For patient's 13 years and over: Temp is 96.8 and below OR 101 and greater Pulse >90 BPM Resp >20/minute Acutely Altered Mental Status Are patient's symptoms suggestive of a new infection, such as: -Pneumonia -Skin, Soft Tissue -Endocarditis -UTI -Bone, Joint Infection -Implantable Device -Acute Abdominal Infection -Wound Infection -Meningitis -Blood Stream Catheter Infection -Unknown System Inflammatory Response Syndrome: Not Applicable Neurological Complaint Exam - Headache Complaint/Exam Onset: Gradual Duration: 2 days Symptoms Are: Still present Timing: Constant Worst Headache Ever: No Initial Severity: Moderate Current Severity: Severe Location: Diffuse Character: Reports: Dull, Throbbing Aggravating: Reports: Bright lights Alleviating: Reports: None Associated Signs and Symptoms: Reports: Nausea. Denies: Dizziness, Seizure, Vomiting, Sinus pressure, Fever, Neck pain, Neck stiffness, Decreased LOC, Visual changes Related History: Reports: Similar episode SAH Risk Factors: Reports: None Meningitis Risk Factors: Reports: None SDH Risk Factors: Reports: None Temporal Arteritis Risk Factors: Reports: None Normal Head CT Within Last 12 Months: Yes Temporal Artery Tenderness: Present: None Sinus Tenderness: Present: None TMJ Tenderness: Present: None Meningeal Signs Positive: No Pain on Passive Flexion-Positive Kernig's: No ROM Limited In: No Limitiations Focal Weakness: Present: None Focal Sensory Loss: Present: None Gait: Normal Nystagmus Present: No Gag Reflex Present: No [id number]: Normal Findings Romberg Test Positive: No Babinski Sign: Negative Right, Negative Left Differential Diagnoses: Migraine Review of Systems - Review Of Systems Constitutional: Reports: No symptoms Eyes: Reports: Photophobia Ears, Nose, Mouth, Throat: Reports: No symptoms Respiratory: Reports: No symptoms Cardiac: Reports: No symptoms GI: Reports: Nausea : Reports: No symptoms Musculoskeletal: Reports: No symptoms Skin: Reports: No symptoms Neurological: Reports: Anxiety, Depressed, Headache Endocrine: Reports: No symptoms Hematologic/Lymphatic: Reports: No symptoms All Other Systems: Reviewed and Negative Past Medical History - Past Medical History Previously Healthy: No Endocrine: Reports: DM 1 Cardiovascular: Reports: None Respiratory: Reports: None Hematological: Reports: None Gastrointestinal: Reports: None Genitourinary: Reports: None Neuro/Psych: Reports: Migraine, Anxiety, Depression Musculoskeletal: Reports: None Cancer: Reports: None Last Menstrual Period: 2 WEEKS Other Pertinent Past Medical History: LOW VIT D - Surgical History General Surgical History: Reports: Tubal ligation, (LT OVARY REMOVED) , Appendectomy, Cholecystectomy, Tonsillectomy, Adenoidectomy, Orthopedic (LEFT KNEE SURGERY), Other (EAR TUBES-ORAL SURG-LEFT BREAST TUMOR REMOVED). Denies: Hysterectomy (LT OVARY REMOVED) - Family History Family History: Reports: None - Social History Smoking Status: Current every day smoker, Heavy tobacco smoker Hx Substance Use: No Alcohol Screening: Occasionally - Immunizations Tetanus Shot up to Date: Yes Physical Exam - Physical Exam Appearance: Ill-appearing Ill-appearing: Moderate Pain Distress: Severe Eyes: LEVI, EOMI, Conjunctiva clear Neck: Supple Respiratory: Airway patent, Breath sounds clear, Breath sounds equal, Respirations nonlabored Cardiovascular: RRR, Pulses normal, No rub, No murmur GI/: Soft, Nontender, No masses, Bowel sounds normal, No Organomegaly Musculoskeletal: Normal strength, ROM intact, No edema, No calf tenderness Neurological: Motor intact, Cranial nerves intact, Alert, Oriented Psychiatric: Anxious Critical Care Note - Critical Care Note Total Time (mins): 0 Course - Course Orders, Labs, Meds: Orders Category Date Time Status Nalbuphine HCl [Nubain] MEDS 12/18/17 21:32 Discontinued 10 mg IM ONCE STA Orphenadrine Citrate [Norflex] MEDS 12/18/17 20:36 Discontinued 60 mg IM ONCE STA Sumatriptan Succinate [Imitrex] MEDS 12/18/17 20:37 Discontinued 6 mg SUBCUT ONCE STA Medications Discontinued Medications Generic Name Dose Route Start Last Admin Trade Name Freq PRN Reason Stop Dose Admin Nalbuphine HCl 10 mg 12/18/17 21:32 12/18/17 21:40 Nubain IM 12/18/17 21:33 10 mg ONCE STA Administration Orphenadrine Citrate 60 mg 12/18/17 20:36 12/18/17 20:53 Norflex IM 12/18/17 20:37 60 mg ONCE STA Administration Sumatriptan Succinate 6 mg 12/18/17 20:37 12/18/17 20:53 Imitrex SUBCUT 12/18/17 20:38 6 mg ONCE STA Administration Vital Signs: Temp Pulse Resp BP Pulse Ox 12/18/17 20:15 98 F 95 H 18 130/85 95 Departure - Departure Time of Disposition: 21:52 Disposition: HOME SELF-CARE Discharge Problem: Headache Instructions: Migraine Headache (ED) Condition: Stable Pt referred to PMD for follow-up: Yes IPMP verified?: No Additional Instructions: Continue home medications as prescribed Follow up with PCP in 3 days Rest Allergies/Adverse Reactions: Allergies Sulfa (Sulfonamide Antibiotics) Allergy (Intermediate, Verified 11/27/17 20:20) Hives latex Adverse Reaction (Intermediate, Verified 11/27/17 20:20) Rash Home Medications: Ambulatory Orders Subcutaneous Insulin Pump [Insulin Pump] 1 each MC DIRECTED 06/27/13 Norgestimate-Ethinyl Estradiol [Mononessa 28 Tablet] 1 each PO DAILY 05/24/15 Sumatriptan Succinate [Imitrex] 100 mg PO BID PRN 01/12/16 Tizanidine HCl [Zanaflex] 4 mg PO BID 01/12/16 Buspirone HCl 10 mg PO TID 08/07/16 Clonazepam [Klonopin] 0.5 mg PO QID #120 08/27/16 Dextroamphetamine/Amphetamine [Adderall 10 mg Tablet] 5 mg PO BID 10/05/16 Trazodone HCl 150 mg PO BEDTIME PRN #1 tablet 01/04/17 Hydrocodone Bit/Acetaminophen [[place] 7.5-325] 7.5 - 325 mg PO BID PRN 12/18/17 Disposition Discussed With: Patient
== END 2017-12-18 22:00 | disposition home or self-care (01) ==
LOC: ED 20:15
DX: G43.909 Migraine, unspecified, not intractable, without status migrainosus (principal); F17.210 Nicotine dependence, cigarettes, uncomplicated
CPT/HCPCS: 96372; 99282; 99283

== ENCOUNTER 2017-12-21 09:38 | Emergency (ER) ==
[2017-12-21 09:38] VITALS: BMI 22.9
[2017-12-21 09:43] VITALS: BP 150/78; TEMP 97.7
--- NOTE | 2017-12-21 10:24 | ED.PDOC ---
General ED Provider: Dr. VIRAL PÉREZ Chief Complaint: Finger Pain/Injury Stated Complaint: Infection of the distal rt index finger. Similar problem in the past. Had acrylic nails and were removed. Pain shooting up index finger into her hand. Works at [employer] in [facility] [employer] Diabetic since age of 7 y/o Time Seen by Physician: 10:05 Mode of Arrival: Walk-In Information Source: Patient Primary Care Provider: ZORAN PLASCENCIA Referred to ED by: Other (Self) Nursing and Triage Documentation Reviewed and Agree: Yes (patient has infection around nail on right 2nd finger. states it is throbb) Reviewed sepsis parameters & appropriate labs ordered?: Yes System Inflammatory Response Syndrome: Not Applicable Sepsis Protocol: For patient's 13 years and over: Temp is 96.8 and below OR 101 and greater Pulse >90 BPM Resp >20/minute Acutely Altered Mental Status Are patient's symptoms suggestive of a new infection, such as: -Pneumonia -Skin, Soft Tissue -Endocarditis -UTI -Bone, Joint Infection -Implantable Device -Acute Abdominal Infection -Wound Infection -Meningitis -Blood Stream Catheter Infection -Unknown System Inflammatory Response Syndrome: Not Applicable Skin Complaint Exam - Skin/Soft Tissue Complaint/Exam Onset/Duration: 2 days Symptoms Are: Still present Timing: Constant Initial Severity: Moderate Current Severity: Moderate Character: Reports: Redness, Swelling, Painful Aggravating: Reports: Touch Alleviating: Reports: None Associated Signs and Symptoms: Reports: Tenderness, Joint swelling. Denies: Drainage, Red streaks Related History: Reports: Similar episode Related Surgical History: Reports: None Recent Exposure to Others w/Similar Symptoms: No Skin Findings: Present: Erythema Joint Tenderness Present: Yes Differential Diagnoses: Abscess, Cellulitis, Infection Review of Systems - Review Of Systems Constitutional: Denies: Chills, Fever Eyes: Reports: No symptoms Ears, Nose, Mouth, Throat: Reports: No symptoms Respiratory: Reports: No symptoms Cardiac: Reports: No symptoms, Lightheadedness GI: Reports: No symptoms : Reports: No symptoms Musculoskeletal: Reports: No symptoms Skin: Reports: No symptoms Neurological: Reports: No symptoms Endocrine: Reports: No symptoms Hematologic/Lymphatic: Reports: No symptoms All Other Systems: Reviewed and Negative Past Medical History - Past Medical History Previously Healthy: No Endocrine: Reports: DM 1 Cardiovascular: Reports: None Respiratory: Reports: None Hematological: Reports: None Gastrointestinal: Reports: None Genitourinary: Reports: None Neuro/Psych: Reports: Migraine, Anxiety, Depression Musculoskeletal: Reports: None Cancer: Reports: None Last Menstrual Period: 2 weeks ago Other Pertinent Past Medical History: LOW VIT D - Surgical History General Surgical History: Reports: Tubal ligation, (LT OVARY REMOVED) , Appendectomy, Cholecystectomy, Tonsillectomy, Adenoidectomy, Orthopedic (LEFT KNEE SURGERY), Other (EAR TUBES-ORAL SURG-LEFT BREAST TUMOR REMOVED). Denies: Hysterectomy (LT OVARY REMOVED) - Family History Family History: Reports: None - Social History Smoking Status: Current every day smoker, Heavy tobacco smoker Hx Substance Use: No Alcohol Screening: Occasionally Physical Exam - Physical Exam Appearance: Well-appearing Ill-appearing: Mild Pain Distress: Moderate Eyes: LEVI, EOMI, Right pupil size ENT: Ears normal, Nose normal, Oropharynx normal Neck: Supple Respiratory: Airway patent, Breath sounds clear, Breath sounds equal Cardiovascular: RRR, Pulses normal, No rub, No murmur GI/: Soft, No masses, Bowel sounds normal, No Organomegaly Musculoskeletal: Normal strength, ROM intact, No edema, No calf tenderness Skin: Warm, Normal color (Rt Index distal phalynx edematous, prulent pocke ) Neurological: Sensation intact, Motor intact, Reflexes intact, Cranial nerves intact, Alert, Oriented Psychiatric: Affect appropriate, Mood appropriate Procedures - Incision and Drainage Instrument Used: 10 Blade I & D Procedure: Yes: Betadine Prep, Hibiclens Prep, Sterile drapes applied, Sterile dressing applied Lidocaine Used: Yes (Digital block R Index finger) Type of Drainage: Present: Pus, Blood Irrigated: Yes Progress: Tolerated well Critical Care Note - Critical Care Note Total Time (mins): 0 Course - Course Hematology/Chemistry: 12/21/17 10:38 12/21/17 10:38 Orders, Labs, Meds: Lab Review 12/21/17 12/21/17 12/21/17 10:38 10:38 10:38 WBC 7.31 RBC 4.28 Hgb 13.0 Hct 38.3 MCV 89.5 MCH 30.4 MCHC 33.9 RDW Coeff of Giovanni 12.2 Plt Count 322 Immature Gran % (Auto) 0.3 Neut % (Auto) 68.4 Lymph % (Auto) 21.8 [place] % (Auto) 7.7 Eos % (Auto) 1.4 Baso % (Auto) 0.4 Immature Gran # (Auto) 0.0 Neut # 5.0 Lymph # 1.6 [place] # 0.6 Eos # 0.1 Baso # 0.0 ESR 23 H Sodium 131 L Potassium 4.8 Chloride 97 L Carbon Dioxide 24 Anion Gap 14.8 BUN 10 Creatinine 0.80 Estimated GFR (MDRD) 85.00 BUN/Creatinine Ratio 12.50 Glucose 467 H Calcium 9.6 Total Bilirubin 0.3 AST 10 L ALT 8 L Alkaline Phosphatase 101 H Total Protein 7.4 Albumin 3.7 Globulin 3.7 Albumin/Globulin Ratio 1.00 Orders Category Date Time Status IV ACCESS ONCE CARE 12/21/17 10:28 Active CBC W/ AUTO DIFF Stat LAB 12/21/17 10:38 Completed CMP [COMPREHENSIVE METABOLIC PANEL] Stat LAB 12/21/17 10:38 Completed ESR Stat LAB 12/21/17 10:38 Completed WOUND CULTURE Stat LAB 12/21/17 12:54 Ordered Cefazolin Sodium [Ancef] MEDS 12/21/17 10:59 Discontinued 1 gm .ROUTE .STK-MED ONE Cefazolin Sodium [Ancef] 1 gm MEDS 12/21/17 10:29 Discontinued 0.9 % Sodium Chloride [Sodium Chloride] 100 ml IV ONCE Hydromorphone HCl [Dilaudid 1 mg/ml Syringe] MEDS 12/21/17 10:29 Discontinued 0.5 mg IVP ONCE STA Lidocaine HCl/Pf [Lidocaine HCl 1% Sdv] MEDS 12/21/17 12:31 Discontinued 5 ml .ROUTE .STK-MED ONE Lidocaine HCl/Pf [Lidocaine HCl 1% Sdv] MEDS 12/21/17 11:30 Discontinued 5 ml SUBCUT ONCE STA HAND, RIGHT 2 VIEWS Stat RADS 12/21/17 10:26 Completed Medications Discontinued Medications Generic Name Dose Route Start Last Admin Trade Name Freq PRN Reason Stop Dose Admin Hydromorphone HCl 0.5 mg 12/21/17 10:29 12/21/17 11:12 Dilaudid 1 Mg/Ml Syringe IVP 12/21/17 10:30 0.5 mg ONCE STA Administration Cefazolin Sodium 1 gm/ Sodium 100 mls @ 100 mls/hr 12/21/17 10:29 12/21/17 11 :12 Chloride IV 12/21/17 11:28 100 mls/hr ONCE STA Administration Lidocaine HCl 5 ml 12/21/17 11:30 12/21/17 12:30 Lidocaine Hcl 1% Sdv SUBCUT 12/21/17 11:31 5 ml ONCE STA Administration Vital Signs: Temp Pulse Resp BP Pulse Ox 12/21/17 09:38 97.7 F 97 H 16 150/78 H 96 Departure - Departure Time of Disposition: 13:05 Disposition: HOME SELF-CARE Discharge Problem: Felon of finger of right hand Instructions: Cellulitis (ED) Condition: Good Pt referred to PMD for follow-up: Yes (2-3 days) IPMP verified?: No Prescriptions: Hydrocodone Bit/Acetaminophen [[place] 5-325] 1 each PO Q6HR PRN #14 tablet PRN Reason: Pain INdex finger Cephalexin 500 mg PO BID #14 tablet Allergies/Adverse Reactions: Allergies Sulfa (Sulfonamide Antibiotics) Allergy (Intermediate, Verified 12/21/17 09:42) Hives latex Adverse Reaction (Intermediate, Verified 12/21/17 09:42) Rash Home Medications: Ambulatory Orders Subcutaneous Insulin Pump [Insulin Pump] 1 each MC DIRECTED 06/27/13 Norgestimate-Ethinyl Estradiol [Mononessa 28 Tablet] 1 each PO DAILY 05/24/15 Sumatriptan Succinate [Imitrex] 100 mg PO BID PRN 01/12/16 Tizanidine HCl [Zanaflex] 4 mg PO BID 01/12/16 Buspirone HCl 10 mg PO TID 08/07/16 Clonazepam [Klonopin] 0.5 mg PO QID #120 08/27/16 Dextroamphetamine/Amphetamine [Adderall 10 mg Tablet] 5 mg PO BID 10/05/16 Trazodone HCl 150 mg PO BEDTIME PRN #1 tablet 01/04/17 Cephalexin 500 mg PO BID #14 tablet 12/21/17 Hydrocodone Bit/Acetaminophen [[place] 5-325] 1 each PO Q6HR PRN #14 tablet Disposition Discussed With: Patient
[2017-12-21] MEDS ORDERED: ANCEF 1 GM in SODIUM CHLORIDE 100 ML IV STA (10:29)
[2017-12-21] MEDS ORDERED: DILAUDID 1 MG/ML SYRINGE IVP STA (10:29)
[2017-12-21] MEDS ORDERED: ANCEF ONE (10:59)
--- NOTE | 2017-12-21 11:12 | DI ---
Exam: Right hand two-view. HISTORY: Infection to distal right index finger. Findings: Two images of the right hand are submitted. These demonstrate a metallic ring overlying t he proximal third finger. There is no acute fracture or dislocation. There is no osseous erosion . Mild soft tissue swelling is noted at the distal aspect of the index finger. Impressions: Mild soft tissue swelling at the distal aspect of the second digit. No underlying osseous erosion to suggest osteomyelitis. Osteomyelitis can have a delayed appearance on radiographs and if further imaging is clinically indicated, a triple phase nuclear medicine bone s can could offer more sensitive evaluation.
[2017-12-21] MEDS ORDERED: LIDOCAINE HCL 1% SDV SUBCUT STA (11:30)
[2017-12-21] MEDS ORDERED: LIDOCAINE HCL 1% SDV ONE (12:31)
== END 2017-12-21 13:30 | disposition home or self-care (01) ==
LOC: ED 09:38
DX: L03.011 Cellulitis of right finger (principal); F17.210 Nicotine dependence, cigarettes, uncomplicated
CPT/HCPCS: 36415; 80053; 85025; 85651; 87070; 87186; 96365; 96375; 99283

== ENCOUNTER 2018-01-16 20:51 | Emergency (ER) ==
[2018-01-16] MEDS ORDERED: PHENERGAN 25 MG/ML VIAL IM STA (20:57)
[2018-01-16] MEDS ORDERED: DILAUDID 2 MG/ML SYRINGE IM STA (20:57)
[2018-01-16 20:58] VITALS: BP 136/82; TEMP 98.1; BMI 23.8
--- NOTE | 2018-01-16 21:00 | ED.PDOC ---
General ED Provider: Dr. 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 Time Seen by Physician: 20:58 Mode of Arrival: Walk-In Information Source: Patient Exam Limitations: No limitations Primary Care Provider: ZORAN PLASCENCIA Nursing and Triage Documentation Reviewed and Agree: Yes Reviewed sepsis parameters & appropriate labs ordered?: Yes System Inflammatory Response Syndrome: Not Applicable Sepsis Protocol: For patient's 13 years and over: Temp is 96.8 and below OR 101 and greater Pulse >90 BPM Resp >20/minute Acutely Altered Mental Status Are patient's symptoms suggestive of a new infection, such as: -Pneumonia -Skin, Soft Tissue -Endocarditis -UTI -Bone, Joint Infection -Implantable Device -Acute Abdominal Infection -Wound Infection -Meningitis -Blood Stream Catheter Infection -Unknown Neurological Complaint Exam - Headache Complaint/Exam Onset: Gradual Duration: several hours Symptoms Are: Still present Timing: Constant Worst Headache Ever: No Initial Severity: Mild Current Severity: Moderate Location: Diffuse Character: Reports: Dull, Throbbing Aggravating: Reports: Bright lights Associated Signs and Symptoms: Reports: Nausea. Denies: Dizziness, Seizure, Vomiting, Sinus pressure, Fever, Neck pain, Neck stiffness, Decreased LOC, Visual changes Related History: Reports: Similar episode Related Surgical History: Reports: None SAH Risk Factors: Reports: None Meningitis Risk Factors: Reports: None SDH Risk Factors: Reports: None Temporal Arteritis Risk Factors: Reports: Female, Normal Head CT Within Last 12 Months: Yes Fundoscopic Exam: Present: Normal Findings Papilledema Present: No Temporal Artery Tenderness: Present: None Sinus Tenderness: Present: None TMJ Tenderness: Present: None Glascow Coma Scale (see protocol): 15 Meningeal Signs Positive: No Pain on Passive Flexion-Positive Kernig's: No ROM Limited In: No Limitiations Focal Weakness: Present: None Focal Sensory Loss: Present: None Gait: Normal Nystagmus Present: No Gag Reflex Present: Yes [id number]: Normal Findings Romberg Test Positive: No Babinski Sign: Negative Right, Negative Left Heel to Toe Normal: Yes Differential Diagnoses: Migraine Review of Systems - Review Of Systems Constitutional: Reports: No symptoms Eyes: Reports: No symptoms Ears, Nose, Mouth, Throat: Reports: No symptoms Respiratory: Reports: No symptoms Cardiac: Reports: No symptoms GI: Reports: Nausea : Reports: No symptoms Musculoskeletal: Reports: No symptoms Skin: Reports: No symptoms Neurological: Reports: Headache Endocrine: Reports: No symptoms Hematologic/Lymphatic: Reports: No symptoms All Other Systems: Reviewed and Negative Past Medical History - Past Medical History Previously Healthy: No Endocrine: Reports: DM 1 Cardiovascular: Reports: None Respiratory: Reports: None Hematological: Reports: None Gastrointestinal: Reports: None Genitourinary: Reports: None Neuro/Psych: Reports: Migraine, Anxiety, Depression Musculoskeletal: Reports: None Cancer: Reports: None Other Pertinent Past Medical History: LOW VIT D - Surgical History General Surgical History: Reports: Tubal ligation, (LT OVARY REMOVED) , Appendectomy, Cholecystectomy, Tonsillectomy, Adenoidectomy, Orthopedic (LEFT KNEE SURGERY), Other (EAR TUBES-ORAL SURG-LEFT BREAST TUMOR REMOVED). Denies: Hysterectomy (LT OVARY REMOVED) - Family History Family History: Reports: None - Social History Smoking Status: Current every day smoker, Heavy tobacco smoker Hx Substance Use: No Alcohol Screening: Occasionally Physical Exam - Physical Exam Appearance: Well-appearing Pain Distress: Moderate Eyes: LEVI ENT: Ears normal, Nose normal, Oropharynx normal Neck: Supple Respiratory: Airway patent Cardiovascular: RRR GI/: Soft Musculoskeletal: Normal strength Skin: Warm Neurological: Sensation intact Psychiatric: Affect appropriate, Mood appropriate Re-Evaluation - Re-Evaluation Time of Re-Evaluation: 21:10 Status: Improved Vital Signs Stable: Yes Pain Level: 0 Appearance: NAD Lungs: Clear Skin: Warm and Dry Neuro: Alert and Oriented X3 CV: RRR Critical Care Note - Critical Care Note Total Time (mins): 0 Course - Course Orders, Labs, Meds: Orders Category Date Time Status Hydromorphone HCl/Pf [Dilaudid 2 mg/ml Syringe] MEDS 01/16/18 20:57 Stat 2 mg IM ONCE STA Promethazine HCl [Phenergan 25 mg/ml Vial] MEDS 01/16/18 20:57 Stat 25 mg IM ONCE STA Medications Generic Name Dose Route Start Last Admin Trade Name Freq PRN Reason Stop Dose Admin Hydromorphone HCl 2 mg 01/16/18 20:57 Dilaudid 2 Mg/Ml Syringe IM 01/16/18 20:58 ONCE STA Promethazine HCl 25 mg 01/16/18 20:57 Phenergan 25 Mg/Ml Vial IM 01/16/18 20:58 ONCE STA Departure - Departure Time of Disposition: 21:00 Disposition: HOME SELF-CARE Discharge Problem: Migraine headache Qualifiers: Migraine type: unspecified Status migrainosus presence: without status migrainosus Intractability: not intractable Qualified Code(s): G43.909 - Migraine, unspecified, not intractable, without status migrainosus Instructions: Migraine Headache (ED) Condition: Good Pt referred to PMD for follow-up: Yes IPMP verified?: No Additional Instructions: f/u with pcp Allergies/Adverse Reactions: Allergies Sulfa (Sulfonamide Antibiotics) Allergy (Intermediate, Verified 12/21/17 09:42) Hives latex Adverse Reaction (Intermediate, Verified 12/21/17 09:42) Rash Home Medications: Ambulatory Orders Subcutaneous Insulin Pump [Insulin Pump] 1 each MC DIRECTED 06/27/13 Norgestimate-Ethinyl Estradiol [Mononessa 28 Tablet] 1 each PO DAILY 05/24/15 Sumatriptan Succinate [Imitrex] 100 mg PO BID PRN 01/12/16 Tizanidine HCl [Zanaflex] 4 mg PO BID 01/12/16 Buspirone HCl 10 mg PO TID 08/07/16 Clonazepam [Klonopin] 0.5 mg PO QID #120 08/27/16 Dextroamphetamine/Amphetamine [Adderall 10 mg Tablet] 5 mg PO BID 10/05/16 Trazodone HCl 150 mg PO BEDTIME PRN #1 tablet 01/04/17 Cephalexin 500 mg PO BID #14 tablet 12/21/17 Hydrocodone Bit/Acetaminophen [[place] 5-325] 1 each PO Q6HR PRN #14 tablet Disposition Discussed With: Patient
== END 2018-01-16 21:25 | disposition home or self-care (01) ==
LOC: ED 20:51
DX: G43.909 Migraine, unspecified, not intractable, without status migrainosus (principal); F17.210 Nicotine dependence, cigarettes, uncomplicated
CPT/HCPCS: 96372; 99282

== ENCOUNTER 2018-02-20 20:06 | Emergency (ER) ==
[2018-02-20] MEDS ORDERED: DILAUDID 2 MG/ML SYRINGE IM STA (20:07)
[2018-02-20] MEDS ORDERED: PHENERGAN 25 MG/ML VIAL IM STA (20:07)
--- NOTE | 2018-02-20 20:11 | ED.PDOC ---
General ED Provider: Dr. 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 Time Seen by Physician: 20:08 Mode of Arrival: Walk-In Information Source: Patient Primary Care Provider: ZORAN PLASCENCIA Nursing and Triage Documentation Reviewed and Agree: Yes Reviewed sepsis parameters & appropriate labs ordered?: Yes System Inflammatory Response Syndrome: Not Applicable Sepsis Protocol: For patient's 13 years and over: Temp is 96.8 and below OR 101 and greater Pulse >90 BPM Resp >20/minute Acutely Altered Mental Status Are patient's symptoms suggestive of a new infection, such as: -Pneumonia -Skin, Soft Tissue -Endocarditis -UTI -Bone, Joint Infection -Implantable Device -Acute Abdominal Infection -Wound Infection -Meningitis -Blood Stream Catheter Infection -Unknown Neurological Complaint Exam - Headache Complaint/Exam Onset: Gradual Duration: 48 hrs Symptoms Are: Still present Timing: Constant Episodes Lasting: Hours Worst Headache Ever: No Initial Severity: Mild Current Severity: Moderate Location: Diffuse Character: Reports: Dull, Throbbing, Pressure Aggravating: Reports: Bright lights Associated Signs and Symptoms: Reports: Nausea. Denies: Dizziness, Seizure, Vomiting, Sinus pressure, Fever, Neck pain Related History: Reports: Similar episode Related Surgical History: Reports: None Temporal Arteritis Risk Factors: Reports: Female, Normal Head CT Within Last 12 Months: Yes Fundoscopic Exam: Present: Normal Findings Papilledema Present: No Temporal Artery Tenderness: Present: None Sinus Tenderness: Present: None TMJ Tenderness: Present: None Glascow Coma Scale (see protocol): 15 Meningeal Signs Positive: No Pain on Passive Flexion-Positive Kernig's: No ROM Limited In: No Limitiations Focal Weakness: Present: None Focal Sensory Loss: Present: None Gait: Normal Nystagmus Present: No Gag Reflex Present: Yes [id number]: Normal Findings Romberg Test Positive: No Babinski Sign: Negative Right, Negative Left Heel to Toe Normal: Yes Differential Diagnoses: Migraine Review of Systems - Review Of Systems Constitutional: Reports: No symptoms Eyes: Reports: No symptoms Ears, Nose, Mouth, Throat: Reports: No symptoms Respiratory: Reports: No symptoms Cardiac: Reports: No symptoms GI: Reports: Nausea : Reports: No symptoms Musculoskeletal: Reports: No symptoms Skin: Reports: No symptoms Neurological: Reports: Headache Endocrine: Reports: No symptoms Hematologic/Lymphatic: Reports: No symptoms All Other Systems: Reviewed and Negative Past Medical History - Past Medical History Previously Healthy: No Endocrine: Reports: DM 1 Cardiovascular: Reports: None Respiratory: Reports: None Hematological: Reports: None Gastrointestinal: Reports: None Genitourinary: Reports: None Neuro/Psych: Reports: Migraine, Anxiety, Depression Musculoskeletal: Reports: None Cancer: Reports: None Other Pertinent Past Medical History: LOW VIT D - Surgical History General Surgical History: Reports: Tubal ligation, (LT OVARY REMOVED) , Appendectomy, Cholecystectomy, Tonsillectomy, Adenoidectomy, Orthopedic (LEFT KNEE SURGERY), Other (EAR TUBES-ORAL SURG-LEFT BREAST TUMOR REMOVED). Denies: Hysterectomy (LT OVARY REMOVED) - Family History Family History: Reports: None - Social History Smoking Status: Current every day smoker, Heavy tobacco smoker Hx Substance Use: No Alcohol Screening: Occasionally Physical Exam - Physical Exam Appearance: Well-appearing, No pain distress, Well-nourished Pain Distress: Moderate Eyes: LEVI, EOMI, Conjunctiva clear ENT: Ears normal, Nose normal, Oropharynx normal Neck: Supple Respiratory: Airway patent, Breath sounds clear, Breath sounds equal, Respirations nonlabored Cardiovascular: RRR, Pulses normal, No rub, No murmur GI/: Soft, Nontender, No masses, Bowel sounds normal, No Organomegaly Musculoskeletal: Normal strength Skin: Warm Neurological: Sensation intact, Motor intact, Reflexes intact, Cranial nerves intact, Alert, Oriented Psychiatric: Affect appropriate, Mood appropriate Re-Evaluation - Re-Evaluation Time of Re-Evaluation: 20:35 Status: Improved Vital Signs Stable: Yes Pain Level: 1 Appearance: NAD Lungs: Clear Skin: Warm and Dry Neuro: Alert and Oriented X3 CV: RRR Critical Care Note - Critical Care Note Total Time (mins): 0 Course - Course Orders, Labs, Meds: Orders Category Date Time Status Hydromorphone HCl/Pf [Dilaudid 2 mg/ml Syringe] MEDS 02/20/18 20:07 Discontinued 2 mg IM ONCE STA Promethazine HCl [Phenergan 25 mg/ml Vial] MEDS 02/20/18 20:07 Discontinued 25 mg IM ONCE STA Medications Discontinued Medications Generic Name Dose Route Start Last Admin Trade Name Freq PRN Reason Stop Dose Admin Hydromorphone HCl 2 mg 02/20/18 20:07 02/20/18 20:27 Dilaudid 2 Mg/Ml Syringe IM 04/22/18 20:08 2 mg ONCE STA Administration Promethazine HCl 25 mg 02/20/18 20:07 02/20/18 20:27 Phenergan 25 Mg/Ml Vial IM 02/20/18 20:08 25 mg ONCE STA Administration Vital Signs: Temp Pulse Resp BP Pulse Ox 02/20/18 20:06 98.6 F 101 H 18 149/85 H 97 Departure - Departure Time of Disposition: 20:10 Disposition: HOME SELF-CARE Discharge Problem: Migraine Qualifiers: Migraine type: unspecified Status migrainosus presence: without status migrainosus Intractability: not intractable Qualified Code(s): G43.909 - Migraine, unspecified, not intractable, without status migrainosus Instructions: Migraine Headache (ED) Condition: Good Pt referred to PMD for follow-up: No IPMP verified?: No Additional Instructions: f/u with pcp Allergies/Adverse Reactions: Allergies Sulfa (Sulfonamide Antibiotics) Allergy (Intermediate, Verified 02/20/18 20:13) Hives latex Adverse Reaction (Intermediate, Verified 02/20/18 20:13) Rash Home Medications: Ambulatory Orders Subcutaneous Insulin Pump [Insulin Pump] 1 each MC DIRECTED 06/27/13 Norgestimate-Ethinyl Estradiol [Mononessa 28 Tablet] 1 each PO DAILY 05/24/15 Sumatriptan Succinate [Imitrex] 100 mg PO BID PRN 01/12/16 Tizanidine HCl [Zanaflex] 4 mg PO BID 01/12/16 Buspirone HCl 10 mg PO TID 08/07/16 Clonazepam [Klonopin] 0.5 mg PO QID #120 08/27/16 Dextroamphetamine/Amphetamine [Adderall 10 mg Tablet] 5 mg PO BID 10/05/16 Trazodone HCl 150 mg PO BEDTIME PRN #1 tablet 01/04/17 Hydrocodone Bit/Acetaminophen [[place] 7.5-325] 1 tab PO BID 02/20/18 Disposition Discussed With: Patient
[2018-02-20 20:19] VITALS: BP 149/85; TEMP 98.6; BMI 22.6
== END 2018-02-20 20:54 | disposition home or self-care (01) ==
LOC: ED 20:06
DX: G43.909 Migraine, unspecified, not intractable, without status migrainosus (principal)
CPT/HCPCS: 96372; 99283

== ENCOUNTER 2018-06-25 19:52 | Emergency (ER) ==
[2018-06-25 20:03] VITALS: BP 130/85; TEMP 98.6; BMI 29.7
[2018-06-25] MEDS ORDERED: AUGMENTIN 875-125 MG TAB PO STA (20:21)
[2018-06-25] MEDS ORDERED: ZOFRAN 4 MG/2 ML IM STA (20:21)
--- NOTE | 2018-06-25 20:28 | ED.PDOC ---
General ED Provider: Dr. ASHISH ONEILL Chief Complaint: Headache Stated Complaint: Came for the left ear pain and there is knot behind the left ear, its been hurting. which triggered the migraine. Time Seen by Physician: 20:23 Mode of Arrival: Walk-In Information Source: Patient Primary Care Provider: ZORAN PLASCENCIA Nursing and Triage Documentation Reviewed and Agree: Yes Does patient meet sepsis criteria?: No If yes, has appropriate treatment been initiated?: No System Inflammatory Response Syndrome: Not Applicable Sepsis Protocol: For patient's 13 years and over: Temp is 96.8 and below OR 101 and greater Pulse >90 BPM Resp >20/minute Acutely Altered Mental Status Are patient's symptoms suggestive of a new infection, such as: -Pneumonia -Skin, Soft Tissue -Endocarditis -UTI -Bone, Joint Infection -Implantable Device -Acute Abdominal Infection -Wound Infection -Meningitis -Blood Stream Catheter Infection -Unknown EENT Complaint Exam - Ear Complaint/Exam Symptoms Are: Still present Timing: Constant Initial Severity: Moderate Current Severity: Moderate Aggravating: Reports: None Alleviating: Reports: None Associated Signs and Symptoms: Reports: Headache Related History: Reports: Similar Episode Ear Surgical History: None Vesicles to External Pinna: No Vesicles to Tragus: No TMJ Tenderness: None Mastoid Tenderness: Left Tragal Tenderness: None External Canal: Normal Material in Canal: Present: Cerumen impaction, Discharge Tympanic Membrane: Erythema, Perforation Differential Diagnoses: Otitis Media Review of Systems - Review Of Systems Constitutional: Reports: No symptoms Eyes: Reports: No symptoms Ears, Nose, Mouth, Throat: Reports: Ear pain Respiratory: Reports: No symptoms Cardiac: Reports: No symptoms GI: Reports: No symptoms : Reports: No symptoms Musculoskeletal: Reports: No symptoms Skin: Reports: No symptoms Neurological: Reports: Headache Endocrine: Reports: No symptoms Hematologic/Lymphatic: Reports: No symptoms All Other Systems: Reviewed and Negative Past Medical History - Past Medical History Previously Healthy: No Endocrine: Reports: DM 1 Cardiovascular: Reports: None Respiratory: Reports: None Hematological: Reports: None Gastrointestinal: Reports: None Genitourinary: Reports: None Neuro/Psych: Reports: Migraine, Anxiety, Depression Musculoskeletal: Reports: None Cancer: Reports: None Last Menstrual Period: ENDED YESTERDAY Other Pertinent Past Medical History: LOW VIT D - Surgical History General Surgical History: Reports: Tubal ligation, (LT OVARY REMOVED) , Appendectomy, Cholecystectomy, Tonsillectomy, Adenoidectomy, Orthopedic (LEFT KNEE SURGERY), Other (EAR TUBES-ORAL SURG-LEFT BREAST TUMOR REMOVED). Denies: Hysterectomy (LT OVARY REMOVED) - Family History Family History: Reports: None - Social History Smoking Status: Current every day smoker, Heavy tobacco smoker Hx Substance Use: Yes ("BEEN CLEAN 3 YEARS ") Alcohol Screening: None - Immunizations Tetanus Shot up to Date: Yes Physical Exam - Physical Exam Appearance: Well-appearing, No pain distress, Well-nourished Eyes: LEVI, EOMI, Conjunctiva clear ENT: Ears normal, Nose normal, Oropharynx normal Respiratory: Airway patent, Breath sounds clear, Breath sounds equal, Respirations nonlabored Cardiovascular: RRR, Pulses normal, No rub, No murmur GI/: Soft, Nontender, No masses, Bowel sounds normal, No Organomegaly Musculoskeletal: Normal strength, ROM intact, No edema, No calf tenderness Skin: Warm, Dry, Normal color Neurological: Sensation intact, Motor intact, Reflexes intact, Cranial nerves intact, Alert, Oriented Psychiatric: Affect appropriate, Mood appropriate Critical Care Note - Critical Care Note Total Time (mins): 30 Course - Course Orders, Labs, Meds: Orders Category Date Time Status Amoxicillin/Potassium Clav [Augmentin 875-125 mg Tab] MEDS 06/25/18 20:21 Stat 1 tab PO ONCE STA Ondansetron HCl/Pf [Zofran 4 mg/2 ml] MEDS 06/25/18 20:21 Stat 4 mg IM ONCE STA Vital Signs: Temp Pulse Resp BP Pulse Ox 06/25/18 19:53 98.6 F 76 20 130/85 97 Departure - Departure Time of Disposition: 20:36 Disposition: HOME SELF-CARE Discharge Problem: Headache Otitis media Qualifiers: Otitis media type: serous Chronicity: acute Laterality: left Recurrence: not specified as recurrent Qualified Code(s): H65.02 - Acute serous otitis media, left ear Instructions: Ear Infection (ED) Condition: Stable Pt referred to PMD for follow-up: No IPMP verified?: No Additional Instructions: Take medication with food. Increase Hydration Prescriptions: Amoxicillin/Potassium Clav [Augmentin 500-125 mg Tab] 1 tab PO Q8HR #30 tablet Prednisone 10 mg PO BIDWM #14 tablet Allergies/Adverse Reactions: Allergies Sulfa (Sulfonamide Antibiotics) Allergy (Intermediate, Verified 06/25/18 20:03) Hives latex Adverse Reaction (Intermediate, Verified 06/25/18 20:03) Rash Home Medications: Ambulatory Orders Subcutaneous Insulin Pump [Insulin Pump] 1 each MC DIRECTED 06/27/13 Sumatriptan Succinate [Imitrex] 100 mg PO BID PRN 01/12/16 Tizanidine HCl [Zanaflex] 4 mg PO BID 01/12/16 Buspirone HCl 10 mg PO TID 08/07/16 Clonazepam [Klonopin] 0.5 mg PO QID #120 08/27/16 Dextroamphetamine/Amphetamine [Adderall 10 mg Tablet] 5 mg PO BID 10/05/16 Trazodone HCl 150 mg PO BEDTIME PRN #1 tablet 01/04/17 Hydrocodone Bit/Acetaminophen [[place] 7.5-325] 1 tab PO BID 02/20/18 Amoxicillin/Potassium Clav [Augmentin 500-125 mg Tab] 1 tab PO Q8HR #30 tablet 06/25/18 Prednisone 10 mg PO BIDWM #14 tablet 06/25/18 Disposition Discussed With: Patient
[2018-06-25] MEDS ORDERED: AUGMENTIN 500-125 MG TAB ONE (20:34)
[2018-06-25] MEDS ORDERED: AUGMENTIN 500-125 MG TAB PO STA (20:35)
== END 2018-06-25 21:03 | disposition home or self-care (01) ==
LOC: ED 19:52
DX: H65.02 Acute serous otitis media, left ear (principal); R51 Headache; F17.210 Nicotine dependence, cigarettes, uncomplicated
CPT/HCPCS: 96372; 99282

== ENCOUNTER 2018-06-28 12:35 | Emergency (ER) ==
[2018-06-28 12:37] VITALS: BMI 29.7
[2018-06-28 12:41] VITALS: BP 131/78; TEMP 98.4
--- NOTE | 2018-06-28 15:15 | DI ---
EXAM: Three views of the right toes History: Trauma of the right fifth toe. Findings: No acute fracture or dislocation. No abnormal calcifications or radiopaque foreign bodies. Joint spaces are preserved. Impression: No acute osseous abnormality
--- NOTE | 2018-06-28 15:36 | ED.PDOC ---
General ED Provider: Dr. VIRAL PÉREZ Chief Complaint: Toe Pain/Injury Stated Complaint: Twisted Rt foot and injured 5th toe. Painful and swollen./not deformed Time Seen by Physician: 13:40 Mode of Arrival: Walk-In Information Source: Patient Primary Care Provider: ZORAN PLASCENCIA Nursing and Triage Documentation Reviewed and Agree: Yes Does patient meet sepsis criteria?: No System Inflammatory Response Syndrome: Not Applicable Sepsis Protocol: For patient's 13 years and over: Temp is 96.8 and below OR 101 and greater Pulse >90 BPM Resp >20/minute Acutely Altered Mental Status Are patient's symptoms suggestive of a new infection, such as: -Pneumonia -Skin, Soft Tissue -Endocarditis -UTI -Bone, Joint Infection -Implantable Device -Acute Abdominal Infection -Wound Infection -Meningitis -Blood Stream Catheter Infection -Unknown Musculoskeletal Complaint Exam - Ankle/Foot Complaint/Exam Location of Injury: Reports: Right, Foot, Toe #5 Mechanism of Injury: Reports: Trauma Onset/Duration: 1 day Symptoms Are: Reports: Still present Onset of Pain: Reports: Immediate Initial Severity: Moderate Current Severity: Moderate Location: Reports: Discrete Character: Reports: Dull, Aching, Throbbing Alleviating: Reports: Rest Aggravating: Reports: Movement, Weight bearing Able to Bear Weight: Yes Associated Signs and Symptoms: Reports: Swelling, Redness, Bruising Related History: Denies: Similar episode Gout Risk Factors: Reports: None Related Surgical History: Reports: None Lower Extremity Findings: Present: Ecchymosis, Erythema Achilles Tendon Abnormality: No Tenderness: Present: Digits. Absent: Heel Differential Diagnosis: Closed Fracture, Sprain, Strain Review of Systems - Review Of Systems Constitutional: Reports: No symptoms Eyes: Reports: No symptoms Ears, Nose, Mouth, Throat: Reports: No symptoms Respiratory: Reports: No symptoms Cardiac: Reports: No symptoms GI: Reports: No symptoms : Reports: No symptoms Musculoskeletal: Reports: No symptoms, Joint pain Skin: Reports: No symptoms Neurological: Reports: No symptoms Endocrine: Reports: No symptoms Hematologic/Lymphatic: Reports: No symptoms All Other Systems: Reviewed and Negative Past Medical History - Past Medical History Previously Healthy: No Endocrine: Reports: DM 1 Cardiovascular: Reports: None Respiratory: Reports: None Hematological: Reports: None Gastrointestinal: Reports: None Genitourinary: Reports: None Neuro/Psych: Reports: Migraine, Anxiety, Depression Musculoskeletal: Reports: None Cancer: Reports: None Last Menstrual Period: 06/20/18 Other Pertinent Past Medical History: LOW VIT D - Surgical History General Surgical History: Reports: Tubal ligation, (LT OVARY REMOVED) , Appendectomy, Cholecystectomy, Tonsillectomy, Adenoidectomy, Orthopedic (LEFT KNEE SURGERY), Other (EAR TUBES-ORAL SURG-LEFT BREAST TUMOR REMOVED). Denies: Hysterectomy (LT OVARY REMOVED) - Family History Family History: Reports: None - Social History Smoking Status: Current every day smoker, Heavy tobacco smoker Hx Substance Use: Yes ("BEEN CLEAN 3 YEARS ") Alcohol Screening: None Physical Exam - Physical Exam Appearance: Well-appearing, Thin Ill-appearing: Mild Pain Distress: Mild Eyes: LEVI, EOMI, Conjunctiva clear ENT: Ears normal, Nose normal, Oropharynx normal Neck: Supple Respiratory: Airway patent, Breath sounds clear, Breath sounds equal, Respirations nonlabored Cardiovascular: RRR, Pulses normal, No rub, No murmur GI/: Soft, Nontender, No masses, Bowel sounds normal, No Organomegaly Musculoskeletal: Normal strength, ROM intact, No edema, No calf tenderness Skin: Warm, Dry, Normal color Neurological: Sensation intact, Motor intact, Reflexes intact, Cranial nerves intact, Alert, Oriented Psychiatric: Affect appropriate, Mood appropriate Interpretation - Radiology Interpretation Radiology Interpretation By: Radiologist Radiology Results: Negative Exam Interpreted: Other (5th toe) Critical Care Note - Critical Care Note Total Time (mins): 0 Course - Course Orders, Labs, Meds: Orders Category Date Time Status TOE(S), RIGHT MIN 2V Stat RADS 06/28/18 14:09 Completed Vital Signs: Temp Pulse Resp BP Pulse Ox 06/28/18 12:37 98.4 F 93 H 18 131/78 96 Departure - Departure Time of Disposition: 15:50 Disposition: HOME SELF-CARE Discharge Problem: Sprain, IP, toe, fifth, right, Contusion of toe of right foot Instructions: Foot Contusion (ED) Condition: Good Pt referred to PMD for follow-up: Yes (PCP in next week) IPMP verified?: No Additional Instructions: Avoid prolonged standing Reviewed xray - no fracture. Elevate /Ice Prevent Prolonged standing or keeping foot in dependent position Take Tylenol or advil for relief of pain Allergies/Adverse Reactions: Allergies Sulfa (Sulfonamide Antibiotics) Allergy (Intermediate, Verified 06/28/18 12:42) Hives latex Adverse Reaction (Intermediate, Verified 06/28/18 12:42) Rash Home Medications: Ambulatory Orders Subcutaneous Insulin Pump [Insulin Pump] 1 each MC DIRECTED 06/27/13 Sumatriptan Succinate [Imitrex] 100 mg PO BID PRN 01/12/16 Tizanidine HCl [Zanaflex] 4 mg PO BID 01/12/16 Buspirone HCl 10 mg PO TID 08/07/16 Clonazepam [Klonopin] 0.5 mg PO QID #120 08/27/16 Dextroamphetamine/Amphetamine [Adderall 10 mg Tablet] 5 mg PO BID 10/05/16 Trazodone HCl 150 mg PO BEDTIME PRN #1 tablet 01/04/17 Hydrocodone Bit/Acetaminophen [[place] 7.5-325] 1 tab PO BID 02/20/18 Amoxicillin/Potassium Clav [Augmentin 500-125 mg Tab] 1 tab PO Q8HR #30 tablet 06/25/18 Prednisone 10 mg PO BIDWM #14 tablet 06/25/18 Disposition Discussed With: Patient
== END 2018-06-28 16:08 | disposition home or self-care (01) ==
LOC: ED 12:35
DX: S90.121A Contusion of right lesser toe(s) without damage to nail, initial encounter (principal); S93.514A Sprain of interphalangeal joint of right lesser toe(s), initial encounter; F17.210 Nicotine dependence, cigarettes, uncomplicated; W22.8XXA Striking against or struck by other objects, initial encounter
CPT/HCPCS: 99282

== ENCOUNTER 2018-08-07 19:19 | Emergency (ER) ==
[2018-08-07 19:23] VITALS: BP 145/83; TEMP 98.5; BMI 28.4
[2018-08-07] MEDS ORDERED: DILAUDID 2 MG/ML SDV IM STA (19:56)
[2018-08-07] MEDS ORDERED: PHENERGAN 25 MG/ML VIAL IM STA (19:56)
[2018-08-07] MEDS ORDERED: PHENERGAN 25 MG/ML VIAL ONE (19:56)
[2018-08-07] MEDS ORDERED: DILAUDID 1 MG/ML SYRINGE ONE (19:56)
--- NOTE | 2018-08-07 19:59 | ED.PDOC ---
General ED Provider: Dr. ANNETTE KAUR Chief Complaint: Headache Stated Complaint: headache, dysuria, back pain Time Seen by Physician: 19:30 (seen with poncho at all times ) Mode of Arrival: Walk-In Information Source: Patient Exam Limitations: No limitations Primary Care Provider: ZORAN PLASCENCIA Nursing and Triage Documentation Reviewed and Agree: Yes Does patient meet sepsis criteria?: Yes If yes, has appropriate treatment been initiated?: No System Inflammatory Response Syndrome: Not Applicable Sepsis Protocol: For patient's 13 years and over: Temp is 96.8 and below OR 101 and greater Pulse >90 BPM Resp >20/minute Acutely Altered Mental Status Are patient's symptoms suggestive of a new infection, such as: -Pneumonia -Skin, Soft Tissue -Endocarditis -UTI -Bone, Joint Infection -Implantable Device -Acute Abdominal Infection -Wound Infection -Meningitis -Blood Stream Catheter Infection -Unknown Neurological Complaint Exam - Headache Complaint/Exam Onset: Gradual Duration: today Timing: Constant Episodes Lasting: Minutes Initial Severity: Moderate Current Severity: Moderate Location: Diffuse Character: Reports: Migraine Aggravating: Reports: None Alleviating: Reports: None Associated Signs and Symptoms: Denies: Dizziness, Seizure, Nausea, Vomiting, Sinus pressure, Fever, Neck pain, Neck stiffness, Decreased LOC, Visual changes Related History: Reports: Similar episode Related Surgical History: Reports: None SAH Risk Factors: Reports: None Meningitis Risk Factors: Reports: None SDH Risk Factors: Reports: None Temporal Arteritis Risk Factors: Reports: Female, Normal Head CT Within Last 12 Months: Yes Fundoscopic Exam: Present: Normal Findings Papilledema Present: No Temporal Artery Tenderness: Present: None Sinus Tenderness: Present: None Glascow Coma Scale (see protocol): 15 Meningeal Signs Positive: No Pain on Passive Flexion-Positive Kernig's: No ROM Limited In: No Limitiations Focal Weakness: Present: None Focal Sensory Loss: Present: None Gait: Normal Nystagmus Present: No Gag Reflex Present: No Review of Systems - Review Of Systems Constitutional: Reports: No symptoms Eyes: Reports: No symptoms Ears, Nose, Mouth, Throat: Reports: No symptoms Respiratory: Reports: No symptoms Cardiac: Reports: No symptoms GI: Reports: No symptoms : Reports: No symptoms Musculoskeletal: Reports: No symptoms Skin: Reports: No symptoms Neurological: Reports: Headache Endocrine: Reports: No symptoms Hematologic/Lymphatic: Reports: No symptoms All Other Systems: Reviewed and Negative Past Medical History - Past Medical History Previously Healthy: No Endocrine: Reports: DM 1 Cardiovascular: Reports: None Respiratory: Reports: None Hematological: Reports: None Gastrointestinal: Reports: None Genitourinary: Reports: None Neuro/Psych: Reports: Migraine, Anxiety, Depression Musculoskeletal: Reports: None Cancer: Reports: None Last Menstrual Period: 07/21/18 Other Pertinent Past Medical History: LOW VIT D - Surgical History General Surgical History: Reports: Tubal ligation, (LT OVARY REMOVED) , Appendectomy, Cholecystectomy, Tonsillectomy, Adenoidectomy, Orthopedic (LEFT KNEE SURGERY), Other (EAR TUBES-ORAL SURG-LEFT BREAST TUMOR REMOVED). Denies: Hysterectomy (LT OVARY REMOVED) - Family History Family History: Reports: None - Social History Smoking Status: Current every day smoker, Heavy tobacco smoker Hx Substance Use: Yes ("BEEN CLEAN 3 YEARS ") Alcohol Screening: None - Immunizations Tetanus Shot up to Date: Yes Physical Exam - Physical Exam Appearance: Well-appearing, No pain distress, Well-nourished Eyes: LEVI, EOMI, Conjunctiva clear ENT: Ears normal, Nose normal, Oropharynx normal Respiratory: Airway patent, Breath sounds clear, Breath sounds equal, Respirations nonlabored Cardiovascular: RRR, Pulses normal, No rub, No murmur GI/: Soft, Nontender, No masses, Bowel sounds normal, No Organomegaly Musculoskeletal: Normal strength, ROM intact, No edema, No calf tenderness Skin: Warm, Dry, Normal color Neurological: Sensation intact, Motor intact, Reflexes intact, Cranial nerves intact, Alert, Oriented Psychiatric: Affect appropriate, Mood appropriate Critical Care Note - Critical Care Note Total Time (mins): 0 Course - Course Orders, Labs, Meds: Orders Category Date Time Status Hydromorphone HCl [Dilaudid 2 mg/ml Sdv] MEDS 08/07/18 19:56 Stat 2 mg IM ONCE STA Promethazine HCl [Phenergan 25 mg/ml Vial] MEDS 08/07/18 19:56 Discontinued 25 mg .ROUTE .STK-MED ONE Promethazine HCl [Phenergan 25 mg/ml Vial] MEDS 08/07/18 19:56 Stat 25 mg IM ONCE STA Medications Discontinued Medications Generic Name Dose Route Start Last Admin Trade Name Freq PRN Reason Stop Dose Admin Hydromorphone HCl 2 mg 08/07/18 19:56 Dilaudid 2 Mg/Ml Sdv IM 08/07/18 19:57 ONCE STA Vital Signs: Temp Pulse Resp BP Pulse Ox 08/07/18 19:20 98.5 F 90 18 145/83 H 97 Departure - Departure Time of Disposition: 19:59 Disposition: HOME SELF-CARE Discharge Problem: Headache, Dysuria Instructions: Acute Headache (DC), Dysuria (ED), Urinary Tract Infection in Women (ED) Condition: Good Pt referred to PMD for follow-up: Yes IPMP verified?: No Allergies/Adverse Reactions: Allergies Sulfa (Sulfonamide Antibiotics) Allergy (Intermediate, Verified 08/07/18 19:23) Hives latex Adverse Reaction (Intermediate, Verified 08/07/18 19:23) Rash Home Medications: Ambulatory Orders Subcutaneous Insulin Pump [Insulin Pump] 1 each MC DIRECTED 06/27/13 Sumatriptan Succinate [Imitrex] 100 mg PO BID PRN 01/12/16 Tizanidine HCl [Zanaflex] 4 mg PO BID 01/12/16 Buspirone HCl 10 mg PO TID 08/07/16 Clonazepam [Klonopin] 0.5 mg PO QID #120 08/27/16 Dextroamphetamine/Amphetamine [Adderall 10 mg Tablet] 5 mg PO BID 10/05/16 Trazodone HCl 150 mg PO BEDTIME PRN #1 tablet 01/04/17 Hydrocodone Bit/Acetaminophen [[place] 7.5-325] 1 tab PO BID 02/20/18
[2018-08-07] MEDS ORDERED: LIDOCAINE HCL 1% SDV IM STA (20:01)
[2018-08-07] MEDS ORDERED: ROCEPHIN IM STA (20:01)
== END 2018-08-07 20:33 | disposition home or self-care (01) ==
LOC: ED 19:19
DX: R51 Headache (principal); R30.0 Dysuria; M54.9 Dorsalgia, unspecified
CPT/HCPCS: 81001; 96372; 99283

== ENCOUNTER 2018-09-03 17:24 | Emergency (ER) ==
[2018-09-03 17:33] VITALS: BP 121/85; TEMP 97.6; BMI 27.3
--- NOTE | 2018-09-03 17:52 | ED.PDOC ---
General ED Provider: Dr. JERI DIEHL Chief Complaint: Respiratory Complaint Stated Complaint: cough and congestion, ear aching, chest pain and headache, hot flashes Time Seen by Physician: 17:52 Mode of Arrival: Walk-In Information Source: Patient Exam Limitations: No limitations Primary Care Provider: ZORAN PLASCENCIA Nursing and Triage Documentation Reviewed and Agree: Yes Does patient meet sepsis criteria?: No System Inflammatory Response Syndrome: Temp 101F or Greater Sepsis Protocol: For patient's 13 years and over: Temp is 96.8 and below OR 101 and greater Pulse >90 BPM Resp >20/minute Acutely Altered Mental Status Are patient's symptoms suggestive of a new infection, such as: -Pneumonia -Skin, Soft Tissue -Endocarditis -UTI -Bone, Joint Infection -Implantable Device -Acute Abdominal Infection -Wound Infection -Meningitis -Blood Stream Catheter Infection -Unknown Review of Systems - Review Of Systems Constitutional: Reports: No symptoms Eyes: Reports: No symptoms Ears, Nose, Mouth, Throat: Reports: Ear pain Respiratory: Reports: Cough Cardiac: Reports: Chest pain GI: Reports: No symptoms : Reports: No symptoms Musculoskeletal: Reports: No symptoms Skin: Reports: No symptoms Neurological: Reports: Anxiety, Headache Endocrine: Reports: No symptoms Hematologic/Lymphatic: Reports: No symptoms All Other Systems: Reviewed and Negative Past Medical History - Past Medical History Previously Healthy: No Endocrine: Reports: DM 1 Cardiovascular: Reports: None Respiratory: Reports: None Hematological: Reports: None Gastrointestinal: Reports: None Genitourinary: Reports: None Neuro/Psych: Reports: Migraine, Anxiety, Depression Musculoskeletal: Reports: None Cancer: Reports: None Last Menstrual Period: 08/01 Other Pertinent Past Medical History: LOW VIT D - Surgical History General Surgical History: Reports: Tubal ligation, (LT OVARY REMOVED) , Appendectomy, Cholecystectomy, Tonsillectomy, Adenoidectomy, Orthopedic (LEFT KNEE SURGERY), Other (EAR TUBES-ORAL SURG-LEFT BREAST TUMOR REMOVED). Denies: Hysterectomy (LT OVARY REMOVED) - Family History Family History: Reports: None - Social History Smoking Status: Current every day smoker Hx Substance Use: No (cleaned three years) Alcohol Screening: None - Immunizations Tetanus Shot up to Date: Yes Physical Exam - Physical Exam Appearance: Ill-appearing Ill-appearing: Mild Eyes: LEVI, EOMI, Conjunctiva clear ENT: Ears normal, Nose normal, Oropharynx normal Respiratory: Airway patent, Breath sounds clear, Breath sounds equal, Respirations nonlabored Cardiovascular: RRR, Pulses normal, No rub, No murmur Musculoskeletal: Normal strength, ROM intact, No calf tenderness Skin: Warm, Dry, Normal color Neurological: Sensation intact, Motor intact, Cranial nerves intact, Alert, Oriented Psychiatric: Mood appropriate, Anxious Critical Care Note - Critical Care Note Total Time (mins): 0 Course - Course Orders, Labs, Meds: Orders Category Date Time Status FLU A/B MOLECULAR Stat LAB 09/03/18 17:50 Uncollected RAPID STREP SCREEN [MOLECULAR GROUP A STREP] Stat LAB 09/03/18 17:50 Uncollected Azithromycin [Zithromax] MEDS 09/03/18 17:59 Stat 500 mg PO ONCE STA Prednisone MEDS 09/03/18 17:59 Stat 20 mg PO ONCE STA Medications Discontinued Medications Generic Name Dose Route Start Last Admin Trade Name Freq PRN Reason Stop Dose Admin Azithromycin 500 mg 09/03/18 17:59 Zithromax PO 09/03/18 18:00 ONCE STA Prednisone 20 mg 09/03/18 17:59 Prednisone PO 09/03/18 18:00 ONCE STA Vital Signs: Temp Pulse Resp BP Pulse Ox 09/03/18 17:26 97.6 F 103 H 20 121/85 98 Departure - Departure Time of Disposition: 18:30 Disposition: HOME SELF-CARE Discharge Problem: Acute bronchitis Qualifiers: Bronchitis organism: other organism Qualified Code(s): J20.8 - Acute bronchitis due to other specified organisms Instructions: Acute Bronchitis (ED) Condition: Fair Pt referred to PMD for follow-up: Yes IPMP verified?: No Additional Instructions: Take medications as prescribed Follow up with PCP in 3 days Stop smoking. Prescriptions: Azithromycin [Zithromax] 250 mg PO DIRECTED #4 tablet Prednisone 20 mg PO DAILYWM #5 tablet Allergies/Adverse Reactions: Allergies Sulfa (Sulfonamide Antibiotics) Allergy (Intermediate, Verified 08/07/18 19:23) Hives latex Adverse Reaction (Intermediate, Verified 08/07/18 19:23) Rash Home Medications: Ambulatory Orders Subcutaneous Insulin Pump [Insulin Pump] 1 each MC DIRECTED 06/27/13 Sumatriptan Succinate [Imitrex] 100 mg PO BID PRN 01/12/16 Tizanidine HCl [Zanaflex] 4 mg PO BID 01/12/16 Buspirone HCl 10 mg PO TID 08/07/16 Clonazepam [Klonopin] 0.5 mg PO QID #120 08/27/16 Dextroamphetamine/Amphetamine [Adderall 10 mg Tablet] 5 mg PO BID 10/05/16 Trazodone HCl 150 mg PO BEDTIME PRN #1 tablet 01/04/17 Hydrocodone Bit/Acetaminophen [[place] 7.5-325] 1 tab PO BID 02/20/18 Azithromycin [Zithromax] 250 mg PO DIRECTED #4 tablet 09/03/18 Prednisone 20 mg PO DAILYWM #5 tablet 09/03/18 Disposition Discussed With: Patient
[2018-09-03] MEDS ORDERED: ZITHROMAX PO STA (17:59)
[2018-09-03] MEDS ORDERED: PREDNISONE PO STA (17:59)
== END 2018-09-03 18:22 | disposition home or self-care (01) ==
LOC: ED 17:24
DX: J20.9 Acute bronchitis, unspecified (principal); F17.210 Nicotine dependence, cigarettes, uncomplicated
CPT/HCPCS: 87502; 87651; 99282

== ENCOUNTER 2018-09-17 20:39 | Emergency (ER) ==
[2018-09-17 20:47] VITALS: BP 146/81; TEMP 99.1; BMI 27.5
[2018-09-17] MEDS ORDERED: ZOFRAN ODT PO STA (21:14)
[2018-09-17] MEDS ORDERED: TORADOL IM STA (21:14)
[2018-09-17] MEDS ORDERED: DHE 45 SUBCUT STA (21:18)
[2018-09-17] MEDS ORDERED: COMPAZINE IM STA (22:18)
--- NOTE | 2018-09-17 22:18 | ED.PDOC ---
General ED Provider: Dr. JERI DIEHL Chief Complaint: Headache Stated Complaint: patient is a 32 year old female who comes to the ER with headaches that she states occures 15 days in a month. She states she has run out of her imirtrex. Took Arvonia but has not helped. Time Seen by Physician: 22:15 Mode of Arrival: Walk-In Information Source: Patient Exam Limitations: No limitations Primary Care Provider: ZORAN PLASCENCIA Nursing and Triage Documentation Reviewed and Agree: Yes Does patient meet sepsis criteria?: No System Inflammatory Response Syndrome: Not Applicable Sepsis Protocol: For patient's 13 years and over: Temp is 96.8 and below OR 101 and greater Pulse >90 BPM Resp >20/minute Acutely Altered Mental Status Are patient's symptoms suggestive of a new infection, such as: -Pneumonia -Skin, Soft Tissue -Endocarditis -UTI -Bone, Joint Infection -Implantable Device -Acute Abdominal Infection -Wound Infection -Meningitis -Blood Stream Catheter Infection -Unknown Neurological Complaint Exam - Headache Complaint/Exam Onset: Gradual Duration: 3 days Symptoms Are: Still present Timing: Constant Worst Headache Ever: No Initial Severity: Severe Current Severity: Severe Location: Right, Left, Frontal Character: Reports: Throbbing, Pressure, Typical headache Aggravating: Reports: Bright lights Alleviating: Reports: None Associated Signs and Symptoms: Reports: Nausea. Denies: Dizziness, Seizure, Vomiting, Sinus pressure, Fever, Neck pain, Neck stiffness, Decreased LOC, Visual changes Related History: Reports: Similar episode. Denies: Recent trauma, Remote trauma Related Surgical History: Reports: None SAH Risk Factors: Reports: None Meningitis Risk Factors: Reports: None SDH Risk Factors: Reports: None Normal Head CT Within Last 12 Months: Yes Fundoscopic Exam: Present: Normal Findings Papilledema Present: No Temporal Artery Tenderness: Present: None Sinus Tenderness: Present: None Glascow Coma Scale (see protocol): 15 Meningeal Signs Positive: No Pain on Passive Flexion-Positive Kernig's: No ROM Limited In: No Limitiations Focal Weakness: Present: None Focal Sensory Loss: Present: None Gait: Normal Nystagmus Present: Yes Gag Reflex Present: Yes [id number]: Normal Findings Romberg Test Positive: No Babinski Sign: Negative Right, Negative Left Differential Diagnoses: Migraine, Tension Headache Review of Systems - Review Of Systems Constitutional: Reports: No symptoms Eyes: Reports: Photophobia Ears, Nose, Mouth, Throat: Reports: No symptoms Respiratory: Reports: No symptoms Cardiac: Reports: No symptoms GI: Reports: No symptoms : Reports: No symptoms Musculoskeletal: Reports: No symptoms Skin: Reports: No symptoms Neurological: Reports: Anxiety, Headache Endocrine: Reports: No symptoms Hematologic/Lymphatic: Reports: No symptoms All Other Systems: Reviewed and Negative Past Medical History - Past Medical History Previously Healthy: No Endocrine: Reports: DM 1 Cardiovascular: Reports: None Respiratory: Reports: None Hematological: Reports: None Gastrointestinal: Reports: None Genitourinary: Reports: None Neuro/Psych: Reports: Migraine, Anxiety, Depression Musculoskeletal: Reports: None Cancer: Reports: None Last Menstrual Period: 08/20/18 Other Pertinent Past Medical History: LOW VIT D - Surgical History General Surgical History: Reports: Tubal ligation, (LT OVARY REMOVED) , Appendectomy, Cholecystectomy, Tonsillectomy, Adenoidectomy, Orthopedic (LEFT KNEE SURGERY), Other (EAR TUBES-ORAL SURG-LEFT BREAST TUMOR REMOVED). Denies: Hysterectomy (LT OVARY REMOVED) - Family History Family History: Reports: None - Social History Smoking Status: Current every day smoker, Heavy tobacco smoker Hx Substance Use: Yes ("BEEN CLEAN 3 YEARS ") Alcohol Screening: None - Immunizations Tetanus Shot up to Date: Yes Physical Exam - Physical Exam Appearance: Ill-appearing Ill-appearing: Mild Pain Distress: Severe Eyes: LEVI, EOMI, Conjunctiva clear ENT: Nose normal, Oropharynx normal Neck: Supple Respiratory: Airway patent, Breath sounds clear, Breath sounds equal, Respirations nonlabored Cardiovascular: RRR, Pulses normal, No rub, No murmur GI/: Soft Musculoskeletal: Normal strength, ROM intact, No edema, No calf tenderness Skin: Warm, Dry, Normal color Neurological: Alert, Oriented Psychiatric: Anxious - NIH Stroke Scale 1a. Level of Consciousness: 0=Alert and keenly responsive 1b. Level of Consciousness Questions: 0=Answers correctly to two questions 1c. Level of Consciousness Commands: 0=Performs two tasks correctly 2. Best Gaze: 0=Normal 3. Visual: 0=No visual loss 4. Facial Palsy: 0=Normal 5a. Motor Left Arm: 0=No drift,arm holds 90 degrees for 10 sec., leg 30 degrees for 5 sec. 5b. Motor Right Arm: 0=No drift,arm holds 90 degrees for 10 sec., leg 30 degrees for 5 sec. 6a. Motor Left Le=No drift,arm holds 90 degrees for 10 sec., leg 30 degrees for 5 sec. 6b. Motor Right Le=No drift,arm holds 90 degrees for 10 sec., leg 30 degrees for 5 sec. 7. Limb Ataxia: 0=Absent 8. Sensory: 0=Normal 9. Best Language: 0=No aphasia 10. Dysarthria: 0=Normal Stroke Scale Total: 0 Critical Care Note - Critical Care Note Total Time (mins): 0 Comments: patient refused to get Compazine. states that the only thing that works is dilaudid and minal Advised of Narcotic not to be used for patients with migraine due to rebound headaches that is experienced She then stated that she wanted to go home. . Course - Course Orders, Labs, Meds: Orders Category Date Time Status Dihydroergotamine Mesylate [Dhe 45] MEDS 09/17/18 21:18 Discontinued 1 mg SUBCUT ONCE STA Ketorolac Tromethamine [Toradol] MEDS 09/17/18 21:14 Discontinued 60 mg IM ONCE STA Ondansetron [Zofran Odt] MEDS 09/17/18 21:14 Discontinued 4 mg PO ONCE STA Prochlorperazine Edisylate [Compazine] MEDS 09/17/18 22:18 Discontinued 10 mg IM ONCE STA Medications Discontinued Medications Generic Name Dose Route Start Last Admin Trade Name Jerq PRN Reason Stop Dose Admin Dihydroergotamine Mesylate 1 mg 09/17/18 21:18 09/17/18 21:39 Dhe 45 SUBCUT 09/17/18 21:19 1 mg ONCE STA Administration Ketorolac Tromethamine 60 mg 09/17/18 21:14 09/17/18 21:38 Toradol IM 09/17/18 21:15 60 mg ONCE STA Administration Ondansetron HCl 4 mg 09/17/18 21:14 09/17/18 21:34 Zofran Odt PO 09/17/18 21:15 4 mg ONCE STA Administration Prochlorperazine Edisylate 10 mg 09/17/18 22:18 09/17/18 22:25 Compazine IM 09/17/18 22:19 Not Given ONCE STA Vital Signs: Temp Pulse Resp BP Pulse Ox 09/17/18 20:39 99.1 F 95 H 18 146/81 H 97 Departure - Departure Time of Disposition: 22:26 Disposition: HOME SELF-CARE Discharge Problem: Headache Instructions: Migraine Headache (ED) Condition: Good Pt referred to PMD for follow-up: Yes IPMP verified?: No Additional Instructions: Follow up with your Neurologist in 1-2 days Allergies/Adverse Reactions: Allergies Sulfa (Sulfonamide Antibiotics) Allergy (Intermediate, Verified 09/17/18 20:47) Hives latex Adverse Reaction (Intermediate, Verified 09/17/18 20:47) Rash Home Medications: Ambulatory Orders Subcutaneous Insulin Pump [Insulin Pump] 1 each MC DIRECTED 06/27/13 Sumatriptan Succinate [Imitrex] 100 mg PO BID PRN 01/12/16 Tizanidine HCl [Zanaflex] 4 mg PO BID 01/12/16 Buspirone HCl 10 mg PO TID 08/07/16 Clonazepam [Klonopin] 0.5 mg PO QID #120 08/27/16 Dextroamphetamine/Amphetamine [Adderall 10 mg Tablet] 5 mg PO BID 10/05/16 Trazodone HCl 150 mg PO BEDTIME PRN #1 tablet 01/04/17 Hydrocodone Bit/Acetaminophen [[place] 7.5-325] 1 tab PO BID 02/20/18 Disposition Discussed With: Patient
== END 2018-09-17 22:32 | disposition home or self-care (01) ==
LOC: ED 20:39
DX: G43.909 Migraine, unspecified, not intractable, without status migrainosus (principal); F17.210 Nicotine dependence, cigarettes, uncomplicated
CPT/HCPCS: 96372; 99283

== ENCOUNTER 2018-09-18 12:16 | Emergency (ER) ==
[2018-09-18 12:17] VITALS: BMI 27.5
[2018-09-18 12:25] VITALS: BP 128/80; TEMP 98.6
[2018-09-18] MEDS ORDERED: DILAUDID 1 MG/ML SYRINGE IM STA (12:30)
[2018-09-18] MEDS ORDERED: PHENERGAN 25 MG/ML VIAL IM STA (12:30)
--- NOTE | 2018-09-18 12:34 | ED.PDOC ---
General ED Provider: Dr. 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 jones Time Seen by Physician: 12:32 Mode of Arrival: Walk-In Information Source: Patient Exam Limitations: No limitations Primary Care Provider: ZORAN PLASCENCIA Nursing and Triage Documentation Reviewed and Agree: Yes Does patient meet sepsis criteria?: No System Inflammatory Response Syndrome: Not Applicable Sepsis Protocol: For patient's 13 years and over: Temp is 96.8 and below OR 101 and greater Pulse >90 BPM Resp >20/minute Acutely Altered Mental Status Are patient's symptoms suggestive of a new infection, such as: -Pneumonia -Skin, Soft Tissue -Endocarditis -UTI -Bone, Joint Infection -Implantable Device -Acute Abdominal Infection -Wound Infection -Meningitis -Blood Stream Catheter Infection -Unknown Neurological Complaint Exam - Headache Complaint/Exam Onset: Gradual Duration: several hours Symptoms Are: Still present Timing: Constant Worst Headache Ever: No Initial Severity: Mild Current Severity: Moderate Location: Diffuse Character: Reports: Dull, Throbbing, Pressure, Typical headache, Migraine Aggravating: Reports: Bright lights Alleviating: Reports: None Associated Signs and Symptoms: Reports: Nausea. Denies: Dizziness, Seizure, Vomiting, Sinus pressure, Fever, Neck pain, Neck stiffness, Decreased LOC, Visual changes Related History: Reports: Similar episode Related Surgical History: Reports: None Normal Head CT Within Last 12 Months: Yes Fundoscopic Exam: Present: Normal Findings Papilledema Present: No Temporal Artery Tenderness: Present: None Sinus Tenderness: Present: None TMJ Tenderness: Present: None Glascow Coma Scale (see protocol): 15 Meningeal Signs Positive: No Pain on Passive Flexion-Positive Kernig's: No ROM Limited In: No Limitiations Focal Weakness: Present: None Focal Sensory Loss: Present: None Gait: Normal Nystagmus Present: No Gag Reflex Present: Yes [id number]: Normal Findings Romberg Test Positive: No Babinski Sign: Negative Right, Negative Left Heel to Toe Normal: Yes Differential Diagnoses: Migraine Review of Systems - Review Of Systems Constitutional: Reports: No symptoms Eyes: Reports: No symptoms Ears, Nose, Mouth, Throat: Reports: No symptoms Respiratory: Reports: No symptoms Cardiac: Reports: No symptoms GI: Reports: Nausea : Reports: No symptoms Musculoskeletal: Reports: No symptoms Skin: Reports: No symptoms Neurological: Reports: No symptoms Endocrine: Reports: No symptoms Hematologic/Lymphatic: Reports: No symptoms All Other Systems: Reviewed and Negative Past Medical History - Past Medical History Previously Healthy: No Endocrine: Reports: DM 1 Cardiovascular: Reports: None Respiratory: Reports: None Hematological: Reports: None Gastrointestinal: Reports: None Genitourinary: Reports: None Neuro/Psych: Reports: Migraine, Anxiety, Depression Musculoskeletal: Reports: None Cancer: Reports: None Last Menstrual Period: 08/20/18 Other Pertinent Past Medical History: LOW VIT D - Surgical History General Surgical History: Reports: Tubal ligation, (LT OVARY REMOVED) , Appendectomy, Cholecystectomy, Tonsillectomy, Adenoidectomy, Orthopedic (LEFT KNEE SURGERY), Other (EAR TUBES-ORAL SURG-LEFT BREAST TUMOR REMOVED). Denies: Hysterectomy (LT OVARY REMOVED) - Family History Family History: Reports: None - Social History Smoking Status: Current every day smoker, Heavy tobacco smoker Hx Substance Use: Yes ("BEEN CLEAN 3 YEARS ". ER visits for migraines) Alcohol Screening: None Physical Exam - Physical Exam Appearance: Well-appearing, No pain distress, Well-nourished Pain Distress: Moderate Eyes: LEVI ENT: Ears normal, Nose normal, Oropharynx normal Neck: Supple Respiratory: Airway patent, Breath sounds clear, Breath sounds equal, Respirations nonlabored Cardiovascular: RRR, Pulses normal, No rub, No murmur GI/: Soft, Nontender, No masses, Bowel sounds normal, No Organomegaly Musculoskeletal: Normal strength, ROM intact, No edema, No calf tenderness Skin: Warm, Dry, Normal color Neurological: Sensation intact Psychiatric: Affect appropriate, Mood appropriate Re-Evaluation - Re-Evaluation Time of Re-Evaluation: 13:00 Status: Improved Vital Signs Stable: Yes Pain Level: 0 Appearance: NAD Lungs: Clear Skin: Warm and Dry Neuro: Alert and Oriented X3 CV: RRR Critical Care Note - Critical Care Note Total Time (mins): 0 Course - Course Orders, Labs, Meds: Orders Category Date Time Status Hydromorphone HCl [Dilaudid 1 mg/ml Syringe] MEDS 09/18/18 12:30 Discontinued 1 mg IM ONCE STA Promethazine HCl [Phenergan 25 mg/ml Vial] MEDS 09/18/18 12:30 Discontinued 25 mg IM ONCE STA Medications Discontinued Medications Generic Name Dose Route Start Last Admin Trade Name Freq PRN Reason Stop Dose Admin Hydromorphone HCl 1 mg 11/18/18 12:30 Dilaudid 1 Mg/Ml Syringe IM 09/18/18 12:31 ONCE STA Promethazine HCl 25 mg 09/18/18 12:30 Phenergan 25 Mg/Ml Vial IM 09/18/18 12:31 ONCE STA Vital Signs: Temp Pulse Resp BP Pulse Ox 09/18/18 12:18 98.6 F 88 20 128/80 95 Departure - Departure Time of Disposition: 12:35 Disposition: HOME SELF-CARE Discharge Problem: Migraine Qualifiers: Migraine type: unspecified Status migrainosus presence: without status migrainosus Intractability: not intractable Qualified Code(s): G43.909 - Migraine, unspecified, not intractable, without status migrainosus Instructions: Migraine Headache (ED) Condition: Good Pt referred to PMD for follow-up: Yes IPMP verified?: No Additional Instructions: f/u with pcp Allergies/Adverse Reactions: Allergies Sulfa (Sulfonamide Antibiotics) Allergy (Intermediate, Verified 09/18/18 12:25) Hives latex Adverse Reaction (Intermediate, Verified 09/18/18 12:25) Rash Home Medications: Ambulatory Orders Subcutaneous Insulin Pump [Insulin Pump] 1 each MC DIRECTED 06/27/13 Sumatriptan Succinate [Imitrex] 100 mg PO BID PRN 01/12/16 Tizanidine HCl [Zanaflex] 4 mg PO BID 01/12/16 Buspirone HCl 10 mg PO TID 08/07/16 Clonazepam [Klonopin] 0.5 mg PO QID #120 08/27/16 Dextroamphetamine/Amphetamine [Adderall 10 mg Tablet] 5 mg PO BID 10/05/16 Trazodone HCl 150 mg PO BEDTIME PRN #1 tablet 01/04/17 Hydrocodone Bit/Acetaminophen [[place] 7.5-325] 1 tab PO BID 02/20/18 Disposition Discussed With: Patient
== END 2018-09-18 13:06 | disposition home or self-care (01) ==
LOC: ED 12:16
DX: G43.909 Migraine, unspecified, not intractable, without status migrainosus (principal); F17.210 Nicotine dependence, cigarettes, uncomplicated
CPT/HCPCS: 96372; 99283

== ENCOUNTER 2018-11-02 20:58 | Emergency (ER) ==
[2018-11-02 21:07] VITALS: TEMP 98.9; BMI 25.0
[2018-11-02] MEDS ORDERED: DILAUDID 1 MG/ML SYRINGE IM STA (21:19)
[2018-11-02] MEDS ORDERED: PHENERGAN 25 MG/ML VIAL IM STA (21:19)
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
[2018-11-02 23:11] VITALS: BP 132/80
== END 2018-11-02 21:52 | disposition home or self-care (01) ==
LOC: ED 20:58
DX: G43.009 Migraine without aura, not intractable, without status migrainosus (principal); S05.12XA Contusion of eyeball and orbital tissues, left eye, initial encounter; W50.0XXA Accidental hit or strike by another person, initial encounter; F17.210 Nicotine dependence, cigarettes, uncomplicated
CPT/HCPCS: 96372; 99282

== ENCOUNTER 2019-01-07 21:21 | Emergency (ER) | payer MEDICAID, OTHER ==
[2019-01-07 21:31] VITALS: BP 116/74; TEMP 96.7; BMI 25.9
--- NOTE | 2019-01-07 21:57 | ED.PDOC ---
General ED Provider: Dr. SYBIL BOB Chief Complaint: Headache Stated Complaint: recurring migrainae headache.No apparent distress.No mention of specific aura or other preceeding symptom. Time Seen by Physician: 21:30 Mode of Arrival: Walk-In Information Source: Patient Exam Limitations: No limitations Primary Care Provider: ZORAN PLASCENCIA Nursing and Triage Documentation Reviewed and Agree: Yes Does patient meet sepsis criteria?: No System Inflammatory Response Syndrome: Not Applicable Sepsis Protocol: For patient's 13 years and over: Temp is 96.8 and below OR 101 and greater Pulse >90 BPM Resp >20/minute Acutely Altered Mental Status Are patient's symptoms suggestive of a new infection, such as: -Pneumonia -Skin, Soft Tissue -Endocarditis -UTI -Bone, Joint Infection -Implantable Device -Acute Abdominal Infection -Wound Infection -Meningitis -Blood Stream Catheter Infection -Unknown EENT Complaint Exam - Eye Complaint/Exam Onset/Duration: few days Symptoms Are: Resolved Timing: Intermittent Initial Severity: Moderate Current Severity: Mild Location: Right Character: Reports: Dull Aggravating: Reports: Light Alleviating: Reports: Darkness Associated Signs and Symptoms: Reports: Photophobia Related History: Reports: Similar episode Eye Surgical History: Reports: None Penetrating Injury Risk Factors: None Globe Rupture Risk Factors: None Review of Systems - Review Of Systems Constitutional: Reports: No symptoms Eyes: Reports: Photophobia Ears, Nose, Mouth, Throat: Reports: No symptoms Respiratory: Reports: No symptoms Cardiac: Reports: No symptoms GI: Reports: No symptoms : Reports: No symptoms Musculoskeletal: Reports: No symptoms Skin: Reports: No symptoms Neurological: Reports: Cognitive dysfunction Endocrine: Reports: No symptoms Hematologic/Lymphatic: Reports: No symptoms All Other Systems: Reviewed and Negative Past Medical History - Past Medical History Previously Healthy: No Endocrine: Reports: DM 1 Cardiovascular: Reports: None Respiratory: Reports: None Hematological: Reports: None Gastrointestinal: Reports: None Genitourinary: Reports: None Neuro/Psych: Reports: Migraine, Anxiety, Depression Musculoskeletal: Reports: None Cancer: Reports: None Last Menstrual Period: 2WEEKS AGO Other Pertinent Past Medical History: LOW VIT D - Surgical History General Surgical History: Reports: Tubal ligation, (LT OVARY REMOVED) , Appendectomy, Cholecystectomy, Tonsillectomy, Adenoidectomy, Orthopedic (LEFT KNEE SURGERY), Other (EAR TUBES-ORAL SURG-LEFT BREAST TUMOR REMOVED). Denies: Hysterectomy (LT OVARY REMOVED) - Family History Family History: Reports: None - Social History Smoking Status: Current every day smoker, Heavy tobacco smoker Hx Substance Use: Yes ("BEEN CLEAN 3 YEARS ". 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) Alcohol Screening: None - Immunizations Tetanus Shot up to Date: Yes Physical Exam - Physical Exam Appearance: Well-appearing Ill-appearing: None Pain Distress: None Eyes: LEVI, Conjunctiva clear ENT: Ears normal, Nose normal Neck: Supple Respiratory: Airway patent Cardiovascular: RRR GI/: Soft Musculoskeletal: Normal strength Skin: Warm Neurological: Sensation intact Critical Care Note - Critical Care Note Total Time (mins): 0 Course - Course Vital Signs: Temp Pulse Resp BP Pulse Ox 01/07/19 21:22 96.7 F L 112 H 18 116/74 97 Departure - Departure Time of Disposition: 22:45 Disposition: AMA Discharge Problem: Headache Instructions: Acute Headache (ED) Condition: Good Pt referred to PMD for follow-up: No (PCP of choice) IPMP verified?: No Allergies/Adverse Reactions: Allergies Sulfa (Sulfonamide Antibiotics) Allergy (Intermediate, Verified 01/07/19 21:29) Hives latex Adverse Reaction (Intermediate, Verified 01/07/19 21:29) Rash Home Medications: Ambulatory Orders Subcutaneous Insulin Pump [Insulin Pump] 1 each MC DIRECTED 06/27/13 Sumatriptan Succinate [Imitrex] 100 mg PO BID PRN 01/12/16 Tizanidine HCl [Zanaflex] 4 mg PO BID 01/12/16 Buspirone HCl 10 mg PO TID 08/07/16 Clonazepam [Klonopin] 0.5 mg PO QID #120 08/27/16 Dextroamphetamine/Amphetamine [Adderall 10 mg Tablet] 5 mg PO BID 10/05/16 Trazodone HCl 150 mg PO BEDTIME PRN #1 tablet 01/04/17 Hydrocodone Bit/Acetaminophen [[place] 7.5-325] 1 tab PO BID PRN 02/20/18 Disposition Discussed With: Patient
[2019-01-07] MEDS: NORFLEX IM STA (22:05)
== END 2019-01-07 22:09 | disposition left against medical advice (07) ==
LOC: ED 21:21
DX: R51 Headache (principal); E10.9 Type 1 diabetes mellitus without complications; F17.210 Nicotine dependence, cigarettes, uncomplicated; Z79.4 Long term (current) use of insulin; Z79.899 Other long term (current) drug therapy
CPT/HCPCS: 99284

== ENCOUNTER 2019-01-11 09:08 | Outpatient (CLI) ==
--- NOTE | 2019-01-11 10:18 | MAMMO ---
EXAM: Bilateral digital diagnostic mammogram (2-D and 3-D) History: Bilateral palpable abnormalities. Comparison: Bilateral mammogram 08/23/2017 Findings: MLO and CC views of bilateral breast demonstrate heterogeneously dense breast parenchyma w hich can obscure small lesions. CAD was reviewed by the radiologist. Tomosynthesis was performed. Biopsy clip within the right breast. Impression: No mammographic abnormalities are identified to correlate with the palpable events of reed ateral breasts. Recommend further evaluation with bilateral breast ultrasound. BIRADS 0, incomplete. Further evaluation recommended
--- NOTE | 2019-01-11 10:20 | US ---
EXAM: Bilateral breast ultrasound. History: Bilateral breast palpable abnormalities. Comparison: Bilateral mammogram 01/11/2019 Technique: Multiple sonographic images through the bilateral breast were obtained. Color duplex Dop pler was used to interrogate vascular flow. Findings: No masses, cysts or fluid collections identified. Impression: No sonographic abnormalities. Recommend followup routine screening mammography at age 6 0. BIRADS 2, benign
== END 2019-01-11 09:09 | disposition home or self-care (01) ==
LOC: RAD 09:08
PROVIDERS: ATTEND Family Medicine
DX: R92.8 Other abnormal and inconclusive findings on diagnostic imaging of breast (principal); E11.69 Type 2 diabetes mellitus with other specified complication; N64.89 Other specified disorders of breast; Z87.898 Personal history of other specified conditions

== ENCOUNTER 2019-02-14 20:11 | Emergency (ER) ==
[2019-02-14 20:20] VITALS: BP 136/85; TEMP 99.5; BMI 25.8
--- NOTE | 2019-02-14 20:34 | ED.PDOC ---
General ED Provider: Dr. SYBIL BOB Chief Complaint: Fall Stated Complaint: fall backwards while helping moving.Pain in lower Th and upper L sections. of spine.Wants to know what is wrong.It hjappened yesterday.Took [place]. and Ibupropfen with little help. Time Seen by Physician: 20:20 Mode of Arrival: Walk-In Information Source: Patient Exam Limitations: No limitations Primary Care Provider: ZORAN PLASCENCIA Nursing and Triage Documentation Reviewed and Agree: Yes Does patient meet sepsis criteria?: No System Inflammatory Response Syndrome: Not Applicable Sepsis Protocol: For patient's 13 years and over: Temp is 96.8 and below OR 101 and greater Pulse >90 BPM Resp >20/minute Acutely Altered Mental Status Are patient's symptoms suggestive of a new infection, such as: -Pneumonia -Skin, Soft Tissue -Endocarditis -UTI -Bone, Joint Infection -Implantable Device -Acute Abdominal Infection -Wound Infection -Meningitis -Blood Stream Catheter Infection -Unknown Musculoskeletal Complaint Exam - Back Pain Complaint/Exam Onset/Duration: fall yesterday while moving Symptoms Are: Still present Timing: Intermittent Episodes Lasting: Hours Initial Severity: Moderate Current Severity: Moderate Location: Reports: Diffuse Character: Reports: Aching Aggravating: Reports: Movements, Lifting Alleviating: Reports: Rest TAD Risk Factors: Reports: None AAA Risk Factors: Reports: None Cauda Equina Risk Factors: Reports: None Epidural Abcess Risk Factors: Reports: None Related Surgical History: Reports: None Focal Tenderness: Yes Paraspinal Muscle Tenderness: Yes Paraspinal Muscle Spasm: Yes Scoliosis: No Lordosis: No Kyphosis: No Focal Weakness: Present: None Focal Sensory Loss: Present: None Gait: Present: Normal Differential Diagnoses: Arthritis, Fracture, Strain, Sprain, Other Review of Systems - Review Of Systems Constitutional: Reports: No symptoms Eyes: Reports: No symptoms Ears, Nose, Mouth, Throat: Reports: No symptoms Respiratory: Reports: No symptoms Cardiac: Reports: No symptoms GI: Reports: No symptoms : Reports: Hematuria Musculoskeletal: Reports: Back pain, Other Neurological: Reports: No symptoms Endocrine: Reports: No symptoms Hematologic/Lymphatic: Reports: No symptoms All Other Systems: Reviewed and Negative Past Medical History - Past Medical History Previously Healthy: No Endocrine: Reports: DM 1 Cardiovascular: Reports: None Respiratory: Reports: None Hematological: Reports: None Gastrointestinal: Reports: None Genitourinary: Reports: None Neuro/Psych: Reports: Migraine, Anxiety, Depression Musculoskeletal: Reports: None Cancer: Reports: None Last Menstrual Period: 01/17/19 Other Pertinent Past Medical History: LOW VIT D - Surgical History General Surgical History: Reports: Tubal ligation, (LT OVARY REMOVED) , Appendectomy, Cholecystectomy, Tonsillectomy, Adenoidectomy, Orthopedic (LEFT KNEE SURGERY), Other (EAR TUBES-ORAL SURG-LEFT BREAST TUMOR REMOVED). Denies: Hysterectomy (LT OVARY REMOVED) - Family History Family History: Reports: None - Social History Smoking Status: Current every day smoker, Heavy tobacco smoker Hx Substance Use: No ("BEEN CLEAN 3 YEARS ". 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) Alcohol Screening: None - Immunizations Tetanus Shot up to Date: Yes Physical Exam - Physical Exam Appearance: Well-appearing Ill-appearing: None Pain Distress: Mild Eyes: LEVI ENT: Ears normal Neck: Supple Respiratory: Airway patent, Breath sounds clear, Breath sounds equal Cardiovascular: RRR, Pulses normal, No murmur GI/: Soft, Nontender, Bowel sounds normal Musculoskeletal: Normal strength, ROM intact, No edema Skin: Warm, Dry, Normal color Neurological: Sensation intact, Motor intact, Reflexes intact Psychiatric: Anxious Critical Care Note - Critical Care Note Total Time (mins): 0 Course - Course Orders, Labs, Meds: Lab Review 02/14/19 20:45 Urine Test Negative Orders Category Date Time Status URINE Stat LAB 02/14/19 20:[address] LUMBAR SPINE W/O CONTRAST Stat RADS 02/14/19 20:[address] THORACIC SPINE W/O CONTRAST Stat RADS 02/14/19 20:34 Completed Vital Signs: Temp Pulse Resp BP Pulse Ox 02/14/19 20:12 99.5 F 88 18 136/85 97 Departure - Departure Time of Disposition: 21:42 Disposition: HOME SELF-CARE Discharge Problem: Back pain Instructions: Muscle Strain (ED) Condition: Good Pt referred to PMD for follow-up: Yes (PCP of choice prn) IPMP verified?: No Allergies/Adverse Reactions: Allergies Sulfa (Sulfonamide Antibiotics) Allergy (Intermediate, Verified 01/07/19 21:29) Hives latex Adverse Reaction (Intermediate, Verified 01/07/19 21:29) Rash Home Medications: Ambulatory Orders Subcutaneous Insulin Pump [Insulin Pump] 1 each MC DIRECTED 06/27/13 Sumatriptan Succinate [Imitrex] 100 mg PO BID PRN 01/12/16 Tizanidine HCl [Zanaflex] 4 mg PO BID 01/12/16 Buspirone HCl 10 mg PO TID 08/07/16 Clonazepam [Klonopin] 0.5 mg PO QID #120 08/27/16 Dextroamphetamine/Amphetamine [Adderall 10 mg Tablet] 5 mg PO BID 10/05/16 Trazodone HCl 150 mg PO BEDTIME PRN #1 tablet 01/04/17 Hydrocodone Bit/Acetaminophen [[place] 7.5-325] 1 tab PO BID PRN 02/20/18 Disposition Discussed With: Patient
[2019-02-14 20:54] LABS: URINE PREGNANCY TEST NEGATIVE (NEGATIVE)
--- NOTE | 2019-02-14 21:31 | CT ---
EXAM: CT scan lumbar spine HISTORY: Fall COMPARISON: None. FINDINGS: Contiguous axial images obtained through the lumbar spine the utilizing 3-mm collimation. Sagittal and coronal reconstructions were imaged and reviewed.. There is mild lower lumbar levoscol iosis. The vertebral bodies are normal in height and alignment. The facet joints are intact. There is no acute fracture or dislocation.. The central canal foramen are patent throughout. Multiple no nobstructive renal calculi noted bilaterally. There is a simple cyst within the left kidney. IMPRESSION: No acute findings
--- NOTE | 2019-02-14 21:33 | CT ---
EXAM: CT thoracic spine without contrast History: Fall backwards were moving TECHNIQUE: Multi-slice transaxial helical with coronal and sagittal reformatted views. Comparison: CT chest 11/19/2016. FINDINGS: The visualized vertebral body heights and intervertebral disc spaces appear preserved. No evidence o f listhesis is seen. No evidence of displaced thoracic spine fracture is seen. No evidence of centr al canal narrowing is seen. No evidence of displaced posterior rib fracture is seen. Dependent atelectasis is seen within the left lung base. Bilateral multiple nonobstructing renal sto sandra are seen. A simple cyst is seen within the midpole region left kidney. Impression: 1. No acute osseous abnormality of the thoracic spine. 2. Bilateral nonobstructing renal calculi.
== END 2019-02-14 21:51 | disposition home or self-care (01) ==
LOC: ED 20:11
DX: M54.5 Low back pain (principal); M54.6 Pain in thoracic spine; W19.XXXA Unspecified fall, initial encounter; F17.210 Nicotine dependence, cigarettes, uncomplicated
CPT/HCPCS: 81025; 99283

== ENCOUNTER 2019-05-08 12:39 | Emergency (ER) ==
[2019-05-08 12:52] VITALS: BP 129/78; TEMP 98.4; BMI 24.3
[2019-05-08] MEDS ORDERED: DUONEB NEB STA (15:31)
[2019-05-08] MEDS ORDERED: DECADRON 4 MG/ML SDV IM STA (15:31)
[2019-05-08] MEDS ORDERED: ZITHROMAX PO STA (15:32)
--- NOTE | 2019-05-08 15:34 | ED.PDOC ---
General ED Provider: Dr. ANNETTE KAUR Chief Complaint: Respiratory Complaint Stated Complaint: COUGH PHELEM 1PK/DAY SMOKING Time Seen by Physician: 12:40 Mode of Arrival: Walk-In Information Source: Patient Exam Limitations: No limitations Primary Care Provider: ZORAN PLASCENCIA Nursing and Triage Documentation Reviewed and Agree: Yes Does patient meet sepsis criteria?: No System Inflammatory Response Syndrome: Not Applicable Sepsis Protocol: For patient's 13 years and over: Temp is 96.8 and below OR 101 and greater Pulse >90 BPM Resp >20/minute Acutely Altered Mental Status Are patient's symptoms suggestive of a new infection, such as: -Pneumonia -Skin, Soft Tissue -Endocarditis -UTI -Bone, Joint Infection -Implantable Device -Acute Abdominal Infection -Wound Infection -Meningitis -Blood Stream Catheter Infection -Unknown Review of Systems - Review Of Systems Constitutional: Reports: Malaise Eyes: Reports: No symptoms Ears, Nose, Mouth, Throat: Reports: Nose discharge ( SINUS PAIN ) Respiratory: Reports: Cough Cardiac: Reports: No symptoms GI: Reports: No symptoms : Reports: No symptoms Musculoskeletal: Reports: No symptoms Skin: Reports: No symptoms Neurological: Reports: No symptoms Endocrine: Reports: No symptoms Hematologic/Lymphatic: Reports: No symptoms All Other Systems: Reviewed and Negative Past Medical History - Past Medical History Previously Healthy: No Endocrine: Reports: DM 1 Cardiovascular: Reports: None Respiratory: Reports: None Hematological: Reports: None Gastrointestinal: Reports: None Genitourinary: Reports: None Neuro/Psych: Reports: Migraine, Anxiety, Depression Musculoskeletal: Reports: None Cancer: Reports: None Last Menstrual Period: 10 days ago Other Pertinent Past Medical History: LOW VIT D - Surgical History General Surgical History: Reports: Tubal ligation, (LT OVARY REMOVED) , Appendectomy, Cholecystectomy, Tonsillectomy, Adenoidectomy, Orthopedic (LEFT KNEE SURGERY), Other (EAR TUBES-ORAL SURG-LEFT BREAST TUMOR REMOVED). Denies: Hysterectomy (LT OVARY REMOVED) - Family History Family History: Reports: None - Social History Smoking Status: Current every day smoker, Heavy tobacco smoker Hx Substance Use: No ("BEEN CLEAN 3 YEARS ". 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) Alcohol Screening: None - Immunizations Tetanus Shot up to Date: No Physical Exam - Physical Exam Appearance: Well-appearing, No pain distress, Well-nourished Eyes: LEVI, EOMI, Conjunctiva clear ENT: Ears normal, Nose normal, Oropharynx normal Respiratory: Rhonchi Cardiovascular: RRR, Pulses normal, No rub, No murmur GI/: Soft, Nontender, No masses, Bowel sounds normal, No Organomegaly Musculoskeletal: Normal strength, ROM intact, No edema, No calf tenderness Skin: Warm, Dry, Normal color Neurological: Sensation intact, Motor intact, Reflexes intact, Cranial nerves intact, Alert, Oriented Psychiatric: Affect appropriate, Mood appropriate Critical Care Note - Critical Care Note Total Time (mins): 0 Course - Course Hematology/Chemistry: 05/08/19 15:50 05/08/19 15:50 Orders, Labs, Meds: Lab Review 05/08/19 05/08/19 05/08/19 15:50 15:50 15:55 WBC 8.08 RBC 4.48 Hgb 13.4 Hct 39.7 MCV 88.6 MCH 29.9 MCHC 33.8 RDW Coeff of Giovanni 11.7 Plt Count 342 Immature Gran % (Auto) 0.1 Neut % (Auto) 60.6 Lymph % (Auto) 28.0 [place] % (Auto) 7.2 Eos % (Auto) 3.6 Baso % (Auto) 0.5 Immature Gran # (Auto) 0.0 Neut # (Auto) 4.9 Lymph # (Auto) 2.3 [place] # (Auto) 0.6 Eos # (Auto) 0.3 Baso # (Auto) 0.0 Sodium 138.4 Potassium 3.63 Chloride 97.9 L Carbon Dioxide 28.3 Anion Gap 15.83 BUN 12.7 Creatinine 0.63 Estimated GFR (MDRD) 110.00 BUN/Creatinine Ratio 20.15 Glucose 249.9 H Calcium 9.24 Total Bilirubin 0.39 AST 23.0 ALT 11.9 Alkaline Phosphatase 96.7 Total Protein 7.38 Albumin 4.40 Globulin 2.98 Albumin/Globulin Ratio 1.47 Urine Test Negative Orders Category Date Time Status EKG-(ED ONLY) Stat CARDIO 05/08/19 15:33 Completed NEBULIZER TREATMENT Stat CARDIO 05/08/19 15:32 Completed CBC W/ AUTO DIFF Stat LAB 05/08/19 15:50 Completed COMPREHENSIVE METABOLIC PANEL Stat LAB 05/08/19 15:50 Completed URINE Stat LAB 05/08/19 15:55 Completed Azithromycin [Zithromax] MEDS 05/08/19 15:48 Discontinued 1,000 mg .ROUTE .STK-MED ONE Azithromycin [Zithromax] MEDS 05/08/19 15:32 Discontinued 1,000 mg PO ONCE STA Dexamethasone 4 mg/ml Inj [Decadron 4 mg/ml Sdv] MEDS 05/08/19 15:31 Discontinued 8 mg IM ONCE STA Ipratropium/Albuterol Neb [Duoneb] MEDS 05/08/19 15:31 Discontinued 1 vial NEB ONCE STA CT CHEST W/O CONTRAST Stat RADS 05/08/19 15:33 Ordered Medications Discontinued Medications Generic Name Dose Route Start Last Admin Trade Name Freq PRN Reason Stop Dose Admin Albuterol/Ipratropium 1 vial 05/08/19 15:31 05/08/19 15:52 Duoneb NEB 05/08/19 15:32 1 vial ONCE STA Administration Azithromycin 1,000 mg 05/08/19 15:32 05/08/19 15:51 Zithromax PO 05/08/19 15:33 1,000 mg ONCE STA Administration Dexamethasone Sodium Phosphate 8 mg 05/08/19 15:31 05/08/19 15:52 Decadron 4 Mg/Ml Sdv IM 05/08/19 15:32 8 mg ONCE STA Administration Vital Signs: Temp Pulse Resp BP Pulse Ox 05/08/19 12:39 98.4 F 96 H 18 129/78 95 Departure - Departure Time of Disposition: 16:29 Disposition: HOME SELF-CARE Discharge Problem: Bronchitis, Poorly controlled diabetes mellitus Instructions: How to Stop Smoking (ED), Acute Bronchitis (ED), Secondhand Smoke Exposure in Children (ED) Condition: Good Pt referred to PMD for follow-up: Yes IPMP verified?: No Additional Instructions: Please call your Family Physician as soon as possible to schedule a follow-up appointment. Zithromax 500mg daily start in the morning. Allergies/Adverse Reactions: Allergies Sulfa (Sulfonamide Antibiotics) Allergy (Intermediate, Verified 01/07/19 21:29) Hives latex Adverse Reaction (Intermediate, Verified 01/07/19 21:29) Rash Home Medications: Ambulatory Orders Subcutaneous Insulin Pump [Insulin Pump] 1 each MC DIRECTED 06/27/13 Sumatriptan Succinate [Imitrex] 100 mg PO BID PRN 01/12/16 Tizanidine HCl [Zanaflex] 4 mg PO BID 01/12/16 Buspirone HCl 10 mg PO TID 08/07/16 Clonazepam [Klonopin] 0.5 mg PO QID #120 08/27/16 Dextroamphetamine/Amphetamine [Adderall 10 mg Tablet] 5 mg PO BID 10/05/16 Trazodone HCl 150 mg PO BEDTIME PRN #1 tablet 01/04/17 Buprenorphine HCl/Naloxone HCl [Suboxone 8 mg-2 mg Sl Film] 2.5 each SL DAILY Furosemide [Lasix Tab] 20 mg PO QDAC 05/08/19 Potassium Chloride [K-Dur] 10 meq PO ONCE 05/08/19 Disposition Discussed With: Patient, Family
[2019-05-08] MEDS ORDERED: ZITHROMAX ONE (15:48)
[2019-05-08 16:03] LABS: URINE PREGNANCY TEST NEGATIVE (NEGATIVE)
--- NOTE | 2019-05-08 16:30 | CT ---
EXAM: CT THORAX HISTORY: Cough, smoker. TECHNIQUE: CT thorax without intravenous contrast. Multiplanar images presented. COMPARISON: 11/19/2016 FINDINGS: Normal heart size. No pericardial effusion. No definite atherosclerotic disease. There is a discoid opacity in the lingular region on the left which contains an oval-shaped 7 mm calc ification near the pleural level. The calcification is likely granulomatous in etiology and is stabl e. The discoid consolidation is new. Lungs are otherwise grossly unremarkable. Normal vascularity. No pleural fluid and thorax. Bones reveal mild scoliosis of the thoracic spine. Heterogeneously dense breast tissue is noted. Bi lateral nephrolithiasis is incidentally found with the largest calculus in each kidney measuring abou t 3.5 mm. No hydronephrosis is seen. Probable left renal cyst. IMPRESSION: 1. There is a small lingular discoid opacity on the left which most likely represents atelectasis or pneumonia. Scarring could appear similar. Less likely neoplasia. This is new since the 2017 exam. There is an adjacent calcified nodule which is stable likely granulomatous in nature. 2. Mild scoliosis. 3. Bilateral nephrolithiasis.
== END 2019-05-08 16:49 | disposition home or self-care (01) ==
LOC: ED 12:39
DX: J40 Bronchitis, not specified as acute or chronic (principal); E10.65 Type 1 diabetes mellitus with hyperglycemia; F17.210 Nicotine dependence, cigarettes, uncomplicated
CPT/HCPCS: 36415; 80053; 81025; 85025; 93005; 93010; 94640; 96372; 99283

== ENCOUNTER 2020-01-24 12:40 | Inpatient (IN) ==
[2020-01-24] MEDS ORDERED: SODIUM CHLORIDE 1,000 ML IV STA (12:58)
[2020-01-24] MEDS ORDERED: TORADOL IVP STA (12:58)
[2020-01-24] MEDS ORDERED: ZOFRAN 4 MG/2 ML IVP STA (12:58)
--- NOTE | 2020-01-24 13:04 | ED.PDOC ---
General ED Provider: Dr. CONSTANTIN FONSECA MD Chief Complaint: Nausea/Vomiting Stated Complaint: mild to mod off and on NV since Wednesday, diffuse aches and lower back ache after lifting and bending, o/w no injury, no fever Time Seen by Physician: 13:01 Mode of Arrival: Walk-In Information Source: Patient Primary Care Provider: ZORAN GRAY Nursing and Triage Documentation Reviewed and Agree: Yes Does patient meet sepsis criteria?: No System Inflammatory Response Syndrome: Not Applicable Sepsis Protocol: For patient's 13 years and over: Temp is 96.8 and below OR 101 and greater Pulse >90 BPM Resp >20/minute Acutely Altered Mental Status Are patient's symptoms suggestive of a new infection, such as: -Pneumonia -Skin, Soft Tissue -Endocarditis -UTI -Bone, Joint Infection -Implantable Device -Acute Abdominal Infection -Wound Infection -Meningitis -Blood Stream Catheter Infection -Unknown GI Complaint Exam Vomiting/Diarrhea Complaint/Exam Onset/Duration: since Wednesday Symptoms Are: Still present Initial Severity: Mild Current Severity: Mild Associated Signs and Symptoms: Denies Dizziness and Fever Review of Systems Review Of Systems Constitutional: Reports Malaise; Denies Fever Eyes: Reports Photophobia Ears, Nose, Mouth, Throat: Denies Throat pain Respiratory: Denies Cough Cardiac: Denies Chest pain GI: Reports Abdominal pain and Vomiting : Denies Burning Musculoskeletal: Reports Back pain; Denies Neck pain Skin: Denies Rash and Cyanosis Neurological: Denies Cognitive dysfunction All Other Systems: Other [facility] Social History Smoking and tobacco status: Current every day smoker Female Reproductive History Menstrual Hx Hysterectomy: No Hx Tubal Ligation: No Physical Exam Physical Exam Appearance: Reports Well-appearing Ill-appearing: None Pain Distress: None Eyes: Reports LEVI, EOMI and Conjunctiva clear ENT: Reports Dry mucosa Neck: Supple Respiratory: Reports Airway patent and Breath sounds equal Cardiovascular: Reports Tachycardia GI/: Reports Soft and Tender (no rebound) Musculoskeletal: Reports Normal strength Skin: Reports Warm and Dry Neurological: Reports Sensation intact, Motor intact and Cranial nerves intact Psychiatric: Reports Affect appropriate Interpretation Radiology Interpretation Radiology Interpretation By: Radiologist Radiology Results: No acute changes Exam Interpreted: CT Scan Re-Evaluation Re-Evaluation Time of Re-Evaluation: 15:06 Status: Improved Vital Signs Stable: Yes Appearance: NAD Skin: Warm and Dry Neuro: Alert and Oriented X3 Additional Comments: admit for dka d/w Dr Gray Critical Care Note Critical Care Note Total Time (mins): 0 Course Course Hematology/Chemistry: 01/24/20 13:07 01/24/20 13:07 Orders, Labs, Meds: Lab Review 01/24/20 01/24/20 01/24/20 13:07 13:07 13:07 WBC 6.65 RBC 5.49 H Hgb 15.1 Hct 46.9 MCV 85.4 MCH 27.5 MCHC 32.2 RDW Coeff of Giovanni 12.6 Plt Count 298 Immature Gran % (Auto) 0.3 Neut % (Auto) 74.4 Lymph % (Auto) 12.6 [place] % (Auto) 12.2 H Eos % (Auto) 0.0 Baso % (Auto) 0.5 Immature Gran # (Auto) 0.0 Neut # (Auto) 5.0 Lymph # (Auto) 0.8 [place] # (Auto) 0.8 Eos # (Auto) 0.0 Baso # (Auto) 0.0 Puncture Site O2 Saturation ABG pH ABG pCO2 ABG pO2 ABG HCO3 ABG Total CO2 ABG Base Excess Jorge L Test FiO2 % Sodium 132.1 L Potassium 4.43 Chloride 99.5 Carbon Dioxide 12.5 L Anion Gap 24.53 BUN 8.5 Creatinine 0.53 L Estimated GFR (MDRD) 134.00 BUN/Creatinine Ratio 16.03 Glucose 388.5 H Calcium 8.45 Total Bilirubin 0.26 AST 24.6 ALT 9.9 Alkaline Phosphatase 128.7 H Total Protein 7.34 Albumin 4.18 Globulin 3.16 Albumin/Globulin Ratio 1.32 Lipase < 10.0 L Serum , Qual Negative Urine Color Urine Clarity Urine pH Ur Specific Harmon Urine Protein Urine Glucose (UA) Urine Ketones Urine Blood Urine Nitrite Urine Bilirubin Urine Urobilinogen Ur Leukocyte Esterase Urine Microscopic RBC Urine Microscopic WBC Ur Squamous Epith Cells Urine Opiates Screen Ur Oxycodone Screen Urine Methadone Screen Ur Propoxyphene Screen Ur Barbiturates Screen U Tricyclic Antidepress Ur Phencyclidine Scrn Ur Amphetamine Screen U Methamphetamines Scrn U Benzodiazepines Scrn Urine Cocaine Screen U Cannabinoids Screen 01/24/20 01/24/20 01/24/20 14:15 14:15 14:35 WBC RBC Hgb Hct MCV MCH MCHC RDW Coeff of Giovanni Plt Count Immature Gran % (Auto) Neut % (Auto) Lymph % (Auto) [place] % (Auto) Eos % (Auto) Baso % (Auto) Immature Gran # (Auto) Neut # (Auto) Lymph # (Auto) [place] # (Auto) Eos # (Auto) Baso # (Auto) Puncture Site R brach O2 Saturation 95.0 ABG pH 7.177 L* ABG pCO2 33.6 L ABG pO2 94.0 ABG HCO3 12.4 L ABG Total CO2 13 L ABG Base Excess -16 L Jorge L Test + FiO2 % 21.0 Sodium Potassium Chloride Carbon Dioxide Anion Gap BUN Creatinine Estimated GFR (MDRD) BUN/Creatinine Ratio Glucose Calcium Total Bilirubin AST ALT Alkaline Phosphatase Total Protein Albumin Globulin Albumin/Globulin Ratio Lipase Serum , Qual Urine Color Yellow Urine Clarity Clear Urine pH 5.0 Ur Specific Harmon >=1.030 Urine Protein 1+ H Urine Glucose (UA) 2+ H Urine Ketones 4+ Urine Blood 3+ H Urine Nitrite Negative Urine Bilirubin Negative Urine Urobilinogen 0.2 Ur Leukocyte Esterase Negative Urine Microscopic RBC 20-30 Urine Microscopic WBC 0-2 Ur Squamous Epith Cells 0-2 Urine Opiates Screen Negative Ur Oxycodone Screen Negative Urine Methadone Screen Negative Ur Propoxyphene Screen Negative Ur Barbiturates Screen Negative U Tricyclic Antidepress Negative Ur Phencyclidine Scrn Negative Ur Amphetamine Screen Negative U Methamphetamines Scrn Negative U Benzodiazepines Scrn Negative Urine Cocaine Screen Negative U Cannabinoids Screen Negative Orders Category Date Time Status ABG DRAW REQUEST Stat CARDIO 01/24/20 13:55 Completed ACTIVITY .Complete BR CARE 01/24/20 15:07 Active BLOOD GLUCOSE MONITORING Q1HR CARE 01/24/20 15:07 Active GIVE HS SNACK 2100 CARE 01/24/20 15:08 Active INTAKE & OUTPUT Q8HR CARE 01/24/20 15:07 Active VITAL SIGNS Q4HR CARE 01/24/20 15:08 Active ADA 1800 CARSON. DIET DIETARY 01/24/20 Dinner Ordered HS SNACK DIETARY 01/24/20 Dinner Ordered ABG Stat LAB 01/24/20 14:35 Completed CBC W/ AUTO DIFF Stat LAB 01/24/20 13:07 Completed COMPREHENSIVE METABOLIC PANEL Stat LAB 01/24/20 13:07 Completed DRUG SCREEN, URINE, RAPID Stat LAB 01/24/20 14:15 Completed LIPASE Stat LAB 01/24/20 13:07 Completed SERUM Stat LAB 01/24/20 13:07 Completed URINALYSIS C & S IF INDICATED Stat LAB 01/24/20 14:15 Completed Insulin Regular in 0.9 % NaCl [Myxredlin 100 Unit/100 MEDS 01/24/20 15:30 Active ml Bag] 100 unit in 100 ml IV TITRATE Ketorolac Tromethamine [Toradol] MEDS 01/24/20 12:58 Discontinued 15 mg IVP ONCE STA Ondansetron HCl/Pf [Zofran 4 mg/2 ml] MEDS 01/24/20 12:58 Discontinued 4 mg IVP ONCE STA Potassium Chloride/D5-0.45NACL [D5%-1/2Ns-KCl 20 Meq/l MEDS 01/24/20 15:30 Hold IV Ximena] 1,000 ml Mvi, Adult No.1 with Vit K [Infuvite Adult] 10 ml IV 83 mls/hr Sodium Chloride 0.9% [Sodium Chloride] 1,000 ml MEDS 01/24/20 12:58 Discontinued IV BOLUS RESUSCITATION STATUS Routine OTHERS 01/24/20 15:[address] ABDOMEN/PELVIS WO CONTRAST Stat RADS 01/24/20 13:55 Completed Medications Generic Name Dose Route Start Last Admin Trade Name Freq PRN Reason Stop Dose Admin Multivitamins/Minerals 10 ml/ 1,010 mls @ 83 mls/hr 01/24/20 15:30 01/24/20 15:55 Potassium Chloride/Dextrose/ IV 83 mls/hr Sod Cl .[id number] JOCELYNE Administration INSULIN REGULAR IN 0.9 % NACL 100 unit in 100 mls @ 2 mls/hr 01/24/20 15:30 01/24/20 16:41 Myxredlin 100 Unit/100 Ml Bag IV 6 unit/hr TITRATE JOCELYNE 6 mls/hr Titration Protocol 2 UNIT/HR Sodium Chloride 1,000 mls @ 1,000 mls/hr 01/24/20 17:00 01/24/20 16:40 Sodium Chloride IV 1,000 mls/hr Q0H JOCELYNE Administration Discontinued Medications Generic Name Dose Route Start Last Admin Trade Name Freq PRN Reason Stop Dose Admin Sodium Chloride 1,000 mls @ 1,000 mls/hr 01/24/20 12:58 01/24/20 13:13 Sodium Chloride IV 01/24/20 13:57 1,000 mls/hr BOLUS STA Administration Ketorolac Tromethamine 15 mg 01/24/20 12:58 01/24/20 13:13 Toradol IVP 01/24/20 12:59 15 mg ONCE STA Administration Ondansetron HCl 4 mg 01/24/20 12:58 01/24/20 13:14 Zofran 4 Mg/2 Ml IVP 01/24/20 12:59 4 mg ONCE STA Administration Vital Signs: Temp Pulse Resp BP Pulse Ox 01/24/20 12:41 97.5 F L 127 H 18 133/95 H 98 Discharge Plan Discharge Patient Disposition: PLACED OBSERVATION Discharge Problem: DKA (diabetic ketoacidosis) Qualifiers: Diabetes mellitus type: due to underlying condition Diabetes mellitus complication detail: without coma Qualified Code(s): E08.10 - Diabetes mellitus due to underlying condition with ketoacidosis without coma ED Provider: CONSTANTIN FONSECA Condition: Stable Discharge Date/Time: 01/24/20 15:33
[2020-01-24 13:16] LABS: HEMATOCRIT 46.9 % (37.0-47.0)
--- NOTE | 2020-01-24 14:54 | CT ---
EXAM: CT ABDOMEN AND PELVIS HISTORY: Back pain, tiredness, nausea and vomiting TECHNIQUE: CT abdomen and pelvis without intravenous contrast. Images were reconstructed using 3 mm section thickness. Reformations were prepared. COMPARISON: 07/06/2018 FINDINGS: Diagnostic limitations exist without including intravenous contrast enhanced images. There are mult iple bilateral renal calculi largest on the right inferiorly at 4 mm in largest on the left inferiorl y at 6.8 mm. No hydronephrosis is seen. There is no perinephric fat stranding. Visualized ureters appear normal. Urinary bladder is unremarkable. No focal hepatic or splenic lesion. Gallbladder is absent. Pancreas is grossly unremarkable. No ad renal nodule. Normal abdominal aorta. Multiple small nonspecific mesenteric lymph nodes are similar to that previously seen. Stomach appears normal. The patient has a history of previous appendectomy. There is slight excess fecal retention throughout most of the colon without bowel obstruction or abnormal bowel gas pattern. Uterus is present. There is a cystic mass in the right adnexa measuring approximately 2.8 x 3.9 x 3.9 cm. A similar picture was seen on the prior study. There is no ascites or inflammatory infiltrat ion of the abdominal fat. No abdominal wall hernia. The bones reveal transitional vertebral body anatomy at the lumbosacral ju nction which can be associated with chronic back pain. 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 Minimal scoliosis convex t o the left. Lung bases reveal a calcified nodule anteriorly on the left suggesting a granuloma. The re is no pneumoperitoneum. IMPRESSION: 1. No clear etiology for nausea and vomiting. There is slight excess fecal retention. Bowel gas pa ttern is normal. 2. There is a cystic mass in the right adnexa suggesting a dominant ovarian follicle or cyst. A sim ilar picture was seen on the prior study. This can be correlated with ultrasound if indicated. 3. 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
[2020-01-24] MEDS: MYXREDLIN 100 UNIT/100 ML BAG 100 UNIT/100 ML PLAST..BAG IV SCH (15:14)
[2020-01-24] MEDS ORDERED: INFUVITE ADULT 10 ML in D5%-1/2NS-KCL 20 MEQ/L IV SOL 1,000 ML IV SCH (15:30)
[2020-01-24] MEDS: SODIUM CHLORIDE 1,000 ML IV SCH (16:40)
[2020-01-24 17:07] VITALS: BMI 24.3
[2020-01-24] MEDS ORDERED: POTASSIUM CHLORIDE 10 MEQ VIAL- ADDITIVE ONLY 10 MEQ in SODIUM CHLORIDE 1,000 ML IV SCH (18:15)
[2020-01-24] MEDS ORDERED: SODIUM CHLORIDE 0.9%-KCL 20 MEQ 1,000 ML IV STA (18:19)
[2020-01-24] MEDS ORDERED: DESYREL PO PRN (19:18)
[2020-01-24] MEDS: KLONOPIN PO SCH (20:52)
[2020-01-24] MEDS: NORCO 5-325 PO PRN (22:11)
[2020-01-24] MEDS: TAMIFLU PO SCH (22:11)
[2020-01-25] MEDS: SODIUM CHLORIDE 1,000 ML IV SCH (00:17)
[2020-01-25] MEDS: NON-FORMULARY MEDICATION (Buprenorphine-Naloxone 1 TAB) SL SCH ×3 (00:46→20:36)
[2020-01-25] MEDS: D5%-NS-KCL 20 MEQ/L IV SOL 1,000 ML IV SCH ×3 (00:47→20:26)
[2020-01-25 05:30] LABS: HEMATOCRIT 38.6 % (37.0-47.0)
[2020-01-25] MEDS: NORCO 5-325 PO PRN ×3 (06:01→18:04)
[2020-01-25] MEDS ORDERED: XOPENEX 1.25 MG NEB STA (08:18)
[2020-01-25] MEDS: KLONOPIN PO SCH ×2 (08:29→20:35)
[2020-01-25] MEDS: TAMIFLU PO SCH ×2 (08:29→20:35)
[2020-01-25] MEDS: SODIUM CHLORIDE 0.9%-KCL 20 MEQ 1,000 ML IV SCH ×3 (09:12→23:25)
[2020-01-25] MEDS ORDERED: XOPENEX 1.25 MG NEB SCH (12:00)
[2020-01-25] MEDS: MYXREDLIN 100 UNIT/100 ML BAG 100 UNIT/100 ML PLAST..BAG IV SCH (14:34)
[2020-01-25] MEDS: PROAIR HFA (SINGLE PATIENT USE) IH SCH ×2 (15:19→17:33)
[2020-01-25] MEDS: ZOFRAN 4 MG/2 ML IVP PRN ×2 (15:19→23:13)
[2020-01-25] MEDS: HUMULIN R SUBCUT PRN ×2 (21:41→23:24)
[2020-01-26] MEDS: PROAIR HFA (SINGLE PATIENT USE) IH SCH ×3 (00:17→13:34)
[2020-01-26] MEDS: HUMULIN R SUBCUT PRN ×3 (01:12→16:10)
[2020-01-26] MEDS: NON-FORMULARY MEDICATION (Buprenorphine-Naloxone 1 TAB) SL SCH (05:12)
[2020-01-26] MEDS: NORCO 5-325 PO PRN ×2 (05:16→13:33)
[2020-01-26 05:27] LABS: HEMATOCRIT 40.1 % (37.0-47.0)
[2020-01-26] MEDS: TAMIFLU PO SCH (08:31)
[2020-01-26] MEDS: KLONOPIN PO SCH (08:31)
[2020-01-26] MEDS: SODIUM CHLORIDE 0.9%-KCL 20 MEQ 1,000 ML IV SCH (08:34)
[2020-01-26 14:34] VITALS: BP 124/71; TEMP 98.6
== END 2020-01-26 17:00 | disposition home or self-care (01) | DRG 638 ==
LOC: MEDSURG B 12:40 → ED 12:40 → OBSVTOIN 15:11 → MEDSURG B 15:33
PROVIDERS: ADMIT Family Medicine; ATTEND Family Medicine
DX: R11.2 Nausea with vomiting, unspecified; Z79.899 Other long term (current) drug therapy; E86.0 Dehydration; J10.1 Influenza due to other identified influenza virus with other respiratory manifestations; Z72.0 Tobacco use; J20.9 Acute bronchitis, unspecified; Z79.4 Long term (current) use of insulin; M54.5 Low back pain; E10.10 Type 1 diabetes mellitus with ketoacidosis without coma; N17.9 Acute kidney failure, unspecified; R53.83 Other fatigue